=== PATIENT | female | born 1985 | race Caucasian/White ===

== ENCOUNTER 2018-11-18 22:39 | Emergency (ER) | payer OTHER, MEDICAID, SELFPAY ==
--- NOTE | 2018-11-18 22:45 | DI.RAD.S_ITS ---
PROCEDURE: XR WRIST RT MIN 3V INDICATIONS: injury, pain TECHNIQUE: 4 views of the wrist were acquired. COMPARISON: [facility], , WRIST MINIMUM 3 VIEWS RIGHT, 05/08/2010, 16:39. [facility], , WRIST INJECTION FOR MR/CT, 09/24/2010, 15:05. FINDINGS: Bones: There is a longitudinal lucency in the distal radial metaphysis, probably caused by an artifact related to a bone ridge. No suspicious bony lesions. Scaphoid view: Scaphoid appears intact. Soft tissues: No suspicious soft tissue calcifications. IMPRESSION: There is a longitudinal lucency in the distal radial metaphysis, suspicious for a nondisplaced fracture. Alternatively, this could be caused by an artifact. If clinically indicated, CT or MRI may be helpful for further evaluation. Dictated by: Cyndie Macdonald M.D. on 11/19/2018 at 8:15 Approved by: Cyndie Macdonald M.D. on 11/19/2018 at 8:22
[2018-11-18 22:46] VITALS: BP 128/72; PULSE 72; RESP 20; TEMP 36.6; O2SAT 99; BMI 30.7
--- NOTE | 2018-11-18 23:26 | ED.UPPEXIN ---
HPI - Extremity Injury (Upper) General Chief Complaint: Extremity Injury, Upper Stated Complaint: Thinks right wrist is possibly broken Time Seen by Provider: 11/18/18 22:45 Source: patient Mode of arrival: ambulatory Limitations: no limitations History of Present Illness HPI narrative: 33-year-old female nonsmoker presents with a chief complaint of gradually worsening right wrist pain over the past few days. She denies any specific injury but does state that 8 years ago she had similar symptoms. The pain is worse with motion and improves with rest. It radiates into her fingers and up to her elbow. On occasion she has some numbness and tingling in her fingers. 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 Onset (ago): week(s) Other injuries: none Handedness: right Severity: moderate Relieving factors: rest Exacerbating factors: movement of extremity Associated symptoms: denies other symptoms Related Data Home Medications Medication Instructions Recorded Confirmed VIT#96/FERROUS FUM/FA 1 tab PO Q DAY #0 06/03/12 11/06/18 ( Tablet) folic acid 1 mg PO QDAY #0 tab 08/11/16 11/06/18 cholecalciferol (vitamin D3) 2,000 2,000 unit PO DAILY 11/06/18 11/06/18 unit capsule Previous Rx's Medication Instructions Recorded fluoxetine 40 mg capsule 40 mg PO QDAY #30 cap 08/28/18 amoxicillin 500 mg capsule 500 mg PO BID #20 cap 11/06/18 benzonatate 100 mg capsule 100 mg PO TID PRN #20 cap 11/06/18 Allergies Allergy/AdvReac Type Severity Reaction Status Date / Time venom-honey bee Allergy Unknown Anaphylaxis Verified 11/06/18 08:42 [BEE VENOM (HONEY BEE)] meperidine [MEPERIDINE] AdvReac Severe HOT RED Verified 11/06/18 08:42 RASH Review of Systems Review of Systems All systems reviewed & are unremarkable except as noted in HPI and below Constitutional Denies chills, Denies fever(s), Denies lethargy and Denies weakness Eyes Denies change in vision, Denies eye discharge, Denies irritation and Denies loss of vision ENT Ears, Nose, Mouth, and Throat: Denies change in voice, Denies neck pain and Denies sore throat Cardiovascular Denies chest pain, Denies irregular heart rhythm, Denies lightheadedness, Denies palpitations, Denies dyspnea, Denies dyspnea on exertion and Denies orthopnea Respiratory Denies cough, Denies dyspnea, Denies dyspnea on exertion and Denies wheezing Gastrointestinal Gastrointestinal: Denies abdominal pain, Denies change in bowel habits, Denies diarrhea, Denies nausea and Denies vomiting Genitourinary Denies hematuria, Denies flank pain, Denies urinary incontinence and Denies urinary urgency Musculoskeletal Reports limited range of motion, Denies neck pain and Reports radiating pain into limb Integumentary/Breasts Denies pruritus, Denies erythema, Denies rash and Denies wounds Neurologic Denies confusion, Denies loss of vision and Denies weakness Psychiatric Denies anxiety, Denies confusion, Denies depression, Denies homicidal ideation and Denies suicidal ideation Endocrine Denies palpitations Hematologic/Lymphatic Denies easy bruising Allergic/Immunologic Denies wheezing PFSH Surgical History Status post delivery (06/16/12) Status post delivery (10/21/16) Status post laparoscopic cholecystectomy (04/14/07) Family History Father Age: 44 Hypertension High cholesterol Mother Age: 48 MS (multiple sclerosis) Social History Smoking Status: Never smoker Exam Narrative Exam Narrative: GEN: AOx3 and in mild distress EYES: Pupils are equal, round, and reactive to light and accommodation. Extraoccular muscles are intact bilaterally. There is no subconjunctival hemorrhage or exudate. CHEST: Lungs are clear to auscultation bilaterally and free of wheezes, rales, or rhonchi. Heart rate is regular rhythm, there are no murmurs, clicks, rubs, or gallops. There is no chest wall tenderness. ABD: Abdomen is soft and nontender. There is no guarding or rebound. Bowel sounds are normal in all 4 quadrants. There is no mass or organomegaly. EXT: Patient has full but painful range of motion at the right wrist, majority of pain at volar aspect of distal radius. Pain/tingling with Tinel's test. Too much discomfort to complete Reverse Phalen's SKIN: Warm, pink, and dry. No erythema or rash Initial Vital Signs Initial Vital Signs: Vital Signs Temperature 98 F 11/18/18 22:46 Pulse Rate 72 11/18/18 22:46 Respiratory Rate 20 11/18/18 22:46 Blood Pressure 128/72 11/18/18 22:46 Pulse Oximetry 99 11/18/18 22:46 Procedures Orthopedic Splinting/Casting Injury #1: Side: right Upper Extremity Injury Location: wrist Upper Extremity Immobilizer: volar splint Course Orders Ordered: ED Orders 11/18/18 22:45 XR wrist RT min 3V Stat Vital Signs - 8 hr 11/18/18 22:46 Temperature 98 F Pulse Rate 72 Respiratory Rate 20 Blood Pressure 128/72 Pulse Oximetry 99 Discharge Plan Departure Patient Disposition: Home Clinical Impression: Acute carpal tunnel syndrome Discharge Date/Time: 11/19/18 00:43 Interventions: ED Discharge Assessment Last Done: 11/19/18 00:43 Instructions: Carpal Tunnel Syndrome Activity Restrictions/Additional Instructions: *You have been diagnosed with [ Acute Right Carpal Tunnel ] *What to do: *Take medications as directed: Motrin / Tylenol for pain and swelling *Follow up with your primary care provider in 2-3 days, call for an appointment. Let them know you were seen in the Emergency Department and that we ask that you be seen in follow up *Return to ER if you should have any new, worsening or concerning symptoms *Wear splint for comfort Prescriptions: No Action cholecalciferol (vitamin D3) 2,000 unit capsule 2,000 unit PO DAILY RF: 0 amoxicillin 500 mg capsule 500 mg PO BID Qty: 20 RF: 0 benzonatate [Tessalon Perles] 100 mg capsule 100 mg PO TID PRN (Reason: cough) Qty: 20 RF: 0 VIT#96/FERROUS FUM/FA ( Tablet) 1 tab PO Q DAY Qty: 0 RF: 0 folic acid 1 MG tablet 1 mg PO QDAY Qty: 0 RF: 0 fluoxetine 40 mg capsule 40 mg PO QDAY Qty: 30 RF: 1 Referrals: Denton Nazario MD [Primary Care Provider] -
== END 2018-11-19 00:43 | disposition home or self-care (01) ==
PROVIDERS: Emergency Provider Emergency Medicine; Family Provider Family Medicine; PCP Family Medicine
DX: G56.00 Carpal tunnel syndrome, unspecified upper limb (principal)
CPT/HCPCS: 29260; 73110; 99282; 99283

== ENCOUNTER 2019-03-09 08:15 | Outpatient (RCR) | payer OTHER, MEDICAID, SELFPAY ==
--- NOTE | 2018-12-24 15:27 | PT.OIE ---
Current Diagnoses Pain in right wrist (12/24/18) Weakness (12/24/18) Past Surgical History (Last Reviewed 11/19/18 @ 04:37 by Frank Pedersen DO) Status post delivery (06/16/12) Status post delivery (10/21/16) Status post laparoscopic cholecystectomy (04/14/07) Provider Visit Care Team Role Provider Type Denton Nazario MD Attending Provider Physician Family Provider Primary Care Provider Specialty: Family Practice Address: [address] [place] [address], [facility] Email: [email or web address] Physical Therapy Initial Evaluation PT-OP-A Visit Information Start: 12/22/18 14:35 Freq: Status: Active Protocol: Document 12/24/18 10:34 LRN (Rec: 12/24/18 10:56 LRN [id number]) Out-Patient Physical Therapy Visit Information Visit Information Visit Type Initial Evaluation Visit Start Time 10:34 Visit Stop Time 11:30 Total Visit Minutes 56 Visit Number 1 Number of 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 After her shift was over she went to the ER to have her wrist checked for fear something was broken. She was found to have no broken bone but possible nerve damage, and was told [address] Zendejas that she could have tendinitis or carpel tunnel in the future. With time she improved until an insidious onset of R medial wrist pain started in Jul 2018. 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 Currently, she has stiffness first in AM, and every time she uses her hand she has shooting pain from R lateral thumb MCP jt to mid lateral forearm. The pt is R handed. Prior Treatments and Tests Pt reports X-ray of 10/2018 showed no broken bones. Future Testing and Treatments Planned None Treatment Goals Patient/Caregiver Goals Eliminate the pain completely. 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 Current Functional Impairments (Reported) Functional Limitations- ADL's Limited with any use of R hand Functional Limitations- Work/School Still able to work. Intermittently dull pain comes on when typing on the keyboard (mid shift). Personal Factors Other Personal Factors That May Effect 2 daughters ages 2 and 6. Therapy/Recovery Occasional headaches. History of Depression. PT-OP-C Subjective Start: 12/22/18 14:35 Freq: Status: Active Protocol: Document 12/24/18 10:34 LRN (Rec: 12/24/18 10:56 LRN [id number]) OP-PT Pain Assessment Pain Assessment Grid Paper Pain Assessment Grid Completed Yes Location R wrist Pain Location Details Sharp shooting pain. Intermittently Aches at rest 4 /10. Every AM. Intensity 8 Scale Used Numeric (1 - 10) Description Aching Sharp Frequency Occasional Pain Duration Ache Lasts .5-1 hour, Sharp is brief. Pain Aggravating Factors Changing Position Activity Other Pain Alleviating Factors Tylenol, Naproxen Home Pain Medication Use Pain Medications Used Yes PT-OP-F Manual Assessment Start: 12/22/18 14:35 Freq: Status: Active Protocol: Document 12/24/18 10:34 LRN (Rec: 12/24/18 15:06 LRN [id number]) Manual Assessments Soft Tissue Assessment Soft Tissue Mobility Assessment Swelling present in the R wrist laterally. Joint Mobility Assessment Joint Mobility Assessment Joint mobility of R carpal bones was normal. PT-OP-H Neuro Start: 12/22/18 14:35 Freq: Status: Active Protocol: Document 12/24/18 10:34 LRN (Rec: 12/24/18 15:06 LRN [id number]) Sensation Evaluation Gross Sensation Sensation Description Paresthesia Dermatome Impairments C6 T1 Comments Summary Comments Tingling was present in the R thumb and index finger with touch. PT-OP-J Posture/Palpation/Skin Start: 12/22/18 14:35 Freq: Status: Active Protocol: Document 12/24/18 10:34 LRN (Rec: 12/24/18 15:06 LRN [id number]) Palpation Assessment Location R thumb Palpation Location Abductor and extensor tendon Palpation Findings Edema Tenderness PT-OP-K Range of Motion Start: 12/22/18 14:35 Freq: Status: Active Protocol: Document 12/24/18 10:34 LRN (Rec: 12/24/18 15:06 LRN [id number]) Elbow/Forearm Range of Motion Elbow/Forearm Measured in Degrees Right Active Elbow/Forearm ROM WFL Yes ROM Testing Position Sitting Left Active Elbow/Forearm ROM WFL Yes ROM Testing Position Sitting Wrist Goniometric Range of Motion ROM Limitations Wrist Limitations of Range of Motion Pain Comments R Wrist flex is decreased. Thumb Goniometric Range of Motion Thumb Measured in Degrees Left CMC Extension Active (degrees) 50 Right CMC Extension Active (degrees) 35 Thumb ROM Limitations Thumb Range of Motion Limitations Pain Comments CMC Thumb ABD: 43 deg's right , 65 deg's left. PT-OP-L Special Tests Start: 12/22/18 14:35 Freq: Status: Active Protocol: Document 12/24/18 10:34 LRN (Rec: 12/24/18 15:06 LRN [id number]) Special Tests Wrist/Hand Special Tests Andi's Test Results Positive R Hand PT-OP-M Strength Start: 12/22/18 14:35 Freq: Status: Active Protocol: Document 12/24/18 10:34 LRN (Rec: 12/24/18 15:06 LRN [id number]) Elbow/Forearm Strength Elbow and Forearm Manual Muscle Testing Right Comments Strength - WNL Wrist Strength Wrist Manual Muscle Testing Left Reason Not Measured WFL Right Flexion (C7) 4+ Good+ Extension (C6) 4 Good Ulnar Deviation 5 Normal Radial Deviation 5 Normal Comments R wrist flexion/extension: Sharp pain present with testing. Finger/Thumb Strength Finger Manual Muscle Testing Right Thumb Extension (thumb C8) 3+ Fair+ Adduction 5 Normal Abduction (fingers T1) 5 Normal Hand Tool Maintenance Worker/Pinch Strength Hand Dominance Hand Dominance Right Hand Strength Left Tool Maintenance Worker (lbs) 21 Comments 3 Trails: 29#, 28#, 26# Right Tool Maintenance Worker (lbs) 19 Comments 3 Trials: 20#, 19#, 20# (avg is 19.7#) PT-OP-R Modalities Start: 12/22/18 14:35 Freq: Status: Active Protocol: Document 12/24/18 10:34 LRN (Rec: 12/24/18 15:06 LRN [id number]) Ultrasound Therapy Treatment Right Posterior Lateral Wrist Treatment Duration (minutes) 8 Patient Position Sitting Coupling Medium Ultrasound Gel Frequency Setting (mHz) 3 Mode Setting Pulsed Duty Cycle 50% Intensity Setting (w/cm2) 1 Comments Ultrasound to R thumb Adductor tendon. PT-OP-T Assessment and Plan Start: 12/22/18 14:35 Freq: Status: Active Protocol: Document 12/24/18 10:34 LRN (Rec: 12/24/18 15:06 LRN [id number]) Physical Therapy Assessment Rehab Potential Rehabilitation Potential Excellent Evaluation Complexity Number of Personal Factors/Comorbidities 1-2 Number of Body Systems Impaired 4 or More Clinical Presentation at Evaluation Evolving Impairments Impairments Activity Tolerance Edema Functional Activities Functional Mobility Pain ROM Sensation Soft Tissue Mobility Strength Goals Function Impairment Intermittent sharp pain at work (part-time) Punch Out Crew Member Goal (LTG) Pt will be able to work a full shift without onset of R wrist pain. 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 Shelter Goal (LTG) Pt will demonstrate circus train supervisor strength 30-33 kg's (normal for ages 35-39 year olds). LTG Duration 02/19/19 ROM Impairment Decreased R wrist mobility with +Finklestein's Test Shelter Goal (LTG) Pt will be able to demonstrate normal active R thumb and wrist mobility without pain. LTG Duration 02/05/19 Pain Impairment Pain rated 8/10 with activity use Short Term Goal (STG) Pt will show 50% improvement with pain intermittent with use. STG Duration 01/21/19 Shelter Goal (LTG) Pt will be painfree with activities at work in the R medial wrist. LTG Duration 02/19/19 Self Care Impairment Pt lacks self care HEP Shelter Goal (LTG) Pt will be independent with a self care HEP. LTG Duration 02/19/19 Assessment Summary Assessment Pt presents with R thumb abductor tendinopathy, atrophy of R forearm muscles, decreased R wrist/circus train supervisor strength, decreased R thumb/ wrist mobility and decreased functional ability. The pt would benefit from a wrist splint that could support and provide rest for her R thumb abductor's and extensor's at the CMC and MCP joints to decrease pain and inflammation of the tendons. The pt will benefit from skilled physical therapy for inflammation and pain reduction, and to improve functional mobility and strength without pain. Physical Therapy Plan Frequency and Duration Frequency of Treatment 2x/Week Duration of Treatment 2 month Plan of Care Start Date 12/24/18 Plan of Care End Date 02/12/19 Therapeutic Interventions Therapeutic Interventions Coordination Training Home Exercise Program Joint Mobilizations Manual Therapy Patient/Caregiver Education Self-Care/Home Management Soft Tissue Mobilization Taping Therapeutic Exercises Modalities Cold Pack/Ice Massage Hot Packs Infrared Therapy Iontophoresis Paraffin Bath Traction- Mechanical Ultrasound Next Visit Focus/Plan Next Note Type Treatment Note Next Visit Plan Assess neck mobility, finger coordination, thumb flex/ opposition ROM and strength. Modalities and use of K-tape to decrease inflammation and pain.
--- NOTE | 2018-12-24 15:27 | PT.OPPOC ---
Current Diagnoses Pain in right wrist (12/24/18) Weakness (12/24/18) Provider Visit Care Team Role Provider Type Denton Nazario MD Attending Provider Physician Family Provider Primary Care Provider Specialty: Family Practice Address: [address] [place] [address], [id number] Email: [email or web address] Plan Of Care PT-OP-T Assessment and Plan Start: 12/22/18 14:35 Freq: Status: Active Protocol: Document 12/24/18 10:34 LRN (Rec: 12/24/18 15:06 LRN [id number]) Physical Therapy Assessment Rehab Potential Rehabilitation Potential Excellent Evaluation Complexity Number of Personal Factors/Comorbidities 1-2 Number of Body Systems Impaired 4 or More Clinical Presentation at Evaluation Evolving Impairments Impairments Activity Tolerance Edema Functional Activities Functional Mobility Pain ROM Sensation Soft Tissue Mobility Strength Goals Function Impairment Intermittent sharp pain at work (part-time) Group Home Goal (LTG) Pt will be able to work a full shift without onset of R wrist pain. 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 Group Home Goal (LTG) Pt will demonstrate felt hat mellowing machine operator strength 30-33 kg's (normal for ages 35-39 year olds). LTG Duration 02/19/19 ROM Impairment Decreased R wrist mobility with +Finklestein's Test Group Home Goal (LTG) Pt will be able to demonstrate normal active R thumb and wrist mobility without pain. LTG Duration 02/05/19 Pain Impairment Pain rated 8/10 with activity use Short Term Goal (STG) Pt will show 50% improvement with pain intermittent with use. STG Duration 01/21/19 Group Home Goal (LTG) Pt will be painfree with activities at work in the R medial wrist. LTG Duration 02/19/19 Self Care Impairment Pt lacks self care HEP Group Home Goal (LTG) Pt will be independent with a self care HEP. 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 The pt would benefit from a wrist splint that could support and provide rest for her R thumb abductor's and extensor's at the CMC and MCP joints to decrease pain and inflammation of the tendons. The pt will benefit from skilled physical therapy for inflammation and pain reduction, and to improve functional mobility and strength without pain. Physical Therapy Plan Frequency and Duration Frequency of Treatment 2x/Week Duration of Treatment 2 month Plan of Care Start Date 12/24/18 Plan of Care End Date 02/12/19 Therapeutic Interventions Therapeutic Interventions Coordination Training Home Exercise Program Joint Mobilizations Manual Therapy Patient/Caregiver Education Self-Care/Home Management Soft Tissue Mobilization Taping Therapeutic Exercises Modalities Cold Pack/Ice Massage Hot Packs Infrared Therapy Iontophoresis Paraffin Bath Traction- Mechanical Ultrasound Next Visit Focus/Plan Next Note Type Treatment Note Next Visit Plan Assess neck mobility, finger coordination, thumb flex/ opposition ROM and strength. Modalities and use of K-tape to decrease inflammation and pain. Plan of Care Dates Plan of Care Start Date 12/24/18 Plan of Care End Date 02/12/19 Please Sign and Return: I have reviewed this Plan of Care and certify that the skilled therapy services above are required to meet the patient?s needs. Physician Signature Date Printed Name and Credentials Clinical Instructor Signature Printed Name and Credentials
--- NOTE | 2018-12-29 13:59 | PT.OTN ---
Current Diagnoses Pain in right wrist (12/29/18) Physical Therapy Treatment Note PT-OP-A Visit Information Start: 12/22/18 14:35 Freq: Status: Active Protocol: Document 12/29/18 09:45 GGD (Rec: 12/29/18 13:59 GGD [email or web address]) Out-Patient Physical Therapy Visit Information Visit Information Visit Type Treatment Note Visit Start Time 09:45 Visit Stop Time 10:25 Total Visit Minutes 40 Visit Number 2 Number of FLOW FLOOR ATTENDANT Visits 1 Evaluation Information Evaluation Date 12/24/18 PT-OP-B Current Condition Start: 12/22/18 14:35 Freq: Status: Active Protocol: Document 12/24/18 10:34 LRN (Rec: 12/24/18 10:56 LRN [id number]) Current Condition History of Current Condition Onset Date 04/2010 Current Complaints Pain in the R wrist present with activity History of Current Condition In April of 2010, while at work at [facility], a nurse and her were getting a pt out of bed and was trying to lift a tubing alongside the bed when her R hand came up, hitting her wrist on the bed rail. After her shift was over she went to the ER to have her wrist checked for fear something was broken. She was found to have no broken bone but possible nerve damage, and was told [address] Zendejas that she could have tendinitis or carpel tunnel in the future. With time she improved until an insidious onset of R medial wrist pain started in Jul 2018. 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. Currently, she has stiffness first in AM, and every time she uses her hand she has shooting pain from R lateral thumb MCP jt to mid lateral forearm. The pt is R handed. Prior Treatments and Tests Pt reports X-ray of 10/2018 showed no broken bones. Future Testing and Treatments Planned None Treatment Goals Patient/Caregiver Goals Eliminate the pain completely. 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 Current Functional Impairments (Reported) Functional Limitations- ADL's Limited with any use of R hand Functional Limitations- Work/School Still able to work. Intermittently dull pain comes on when typing on the keyboard (mid shift). Personal Factors Other Personal Factors That May Effect 2 daughters ages 2 and 6. Therapy/Recovery Occasional headaches. History of Depression. PT-OP-C Subjective Start: 12/22/18 14:35 Freq: Status: Active Protocol: Document 12/29/18 09:45 GGD (Rec: 12/29/18 13:59 GGD [email or web address]) OP-PT Subjective Patient Comments Patient Comments Pt states that she had increase in pain, feels it's due to the cold weather. She has a brace she been wearing. PT-OP-F Manual Assessment Start: 12/22/18 14:35 Freq: Status: Active Protocol: Document 12/24/18 10:34 LRN (Rec: 12/24/18 15:06 LRN [id number]) Manual Assessments Soft Tissue Assessment Soft Tissue Mobility Assessment Swelling present in the R wrist laterally. Joint Mobility Assessment Joint Mobility Assessment Joint mobility of R carpal bones was normal. PT-OP-H Neuro Start: 12/22/18 14:35 Freq: Status: Active Protocol: Document 12/24/18 10:34 LRN (Rec: 12/24/18 15:06 LRN [id number]) Sensation Evaluation Gross Sensation Sensation Description Paresthesia Dermatome Impairments C6 T1 Comments Summary Comments Tingling was present in the R thumb and index finger with touch. PT-OP-J Posture/Palpation/Skin Start: 12/22/18 14:35 Freq: Status: Active Protocol: Document 12/24/18 10:34 LRN (Rec: 12/24/18 15:06 LRN [id number]) Palpation Assessment Location R thumb Palpation Location Abductor and extensor tendon Palpation Findings Edema Tenderness PT-OP-K Range of Motion Start: 12/22/18 14:35 Freq: Status: Active Protocol: Document 12/24/18 10:34 LRN (Rec: 12/24/18 15:06 LRN [id number]) Elbow/Forearm Range of Motion Elbow/Forearm Measured in Degrees Right Active Elbow/Forearm ROM WFL Yes ROM Testing Position Sitting Left Active Elbow/Forearm ROM WFL Yes ROM Testing Position Sitting Wrist Goniometric Range of Motion ROM Limitations Wrist Limitations of Range of Motion Pain Comments R Wrist flex is decreased. Thumb Goniometric Range of Motion Thumb Measured in Degrees Left CMC Extension Active (degrees) 50 Right CMC Extension Active (degrees) 35 Thumb ROM Limitations Thumb Range of Motion Limitations Pain Comments CMC Thumb ABD: 43 deg's right , 65 deg's left. PT-OP-L Special Tests Start: 12/22/18 14:35 Freq: Status: Active Protocol: Document 12/24/18 10:34 LRN (Rec: 12/24/18 15:06 LRN [id number]) Special Tests Wrist/Hand Special Tests Andi's Test Results Positive R Hand PT-OP-M Strength Start: 12/22/18 14:35 Freq: Status: Active Protocol: Document 12/24/18 10:34 LRN (Rec: 12/24/18 15:06 LRN [id number]) Elbow/Forearm Strength Elbow and Forearm Manual Muscle Testing Right Comments Strength - WNL Wrist Strength Wrist Manual Muscle Testing Left Reason Not Measured WFL Right Flexion (C7) 4+ Good+ Extension (C6) 4 Good Ulnar Deviation 5 Normal Radial Deviation 5 Normal Comments R wrist flexion/extension: Sharp pain present with testing. Finger/Thumb Strength Finger Manual Muscle Testing Right Thumb Extension (thumb C8) 3+ Fair+ Adduction 5 Normal Abduction (fingers T1) 5 Normal Hand Blasting Coal Miner/Pinch Strength Hand Dominance Hand Dominance Right Hand Strength Left Blasting Coal Miner (lbs) 21 Comments 3 Trails: 29#, 28#, 26# Right Blasting Coal Miner (lbs) 19 Comments 3 Trials: 20#, 19#, 20# (avg is 19.7#) PT-OP-Q Treatments Start: 12/22/18 14:35 Freq: Status: Active Protocol: Document 12/29/18 09:45 GGD (Rec: 12/29/18 13:59 GGD [email or web address]) Therapeutic Exercises Sitting Exercises 4 Sitting Exercise Name rows Side bilateral Resistance 2 Equipment Used thera band Reps/Minutes 20 3 Sitting Exercise Name Shoulder abduction and flexion Side right Resistance 3 Reps/Minutes 20 2 Sitting Exercise Name biceps curls Side right Resistance 3# Reps/Minutes 20 1 Sitting Exercise Name wrist flexor and extensor stretch Reps/Minutes 2 PT-OP-R Modalities Start: 12/22/18 14:35 Freq: Status: Active Protocol: Document 12/29/18 09:45 GGD (Rec: 12/29/18 13:59 GGD [email or web address]) Hot Pack/Cold Pack Treatment Ice Massage Location right thumb abductor Patient Position Sitting Treatment Duration (minutes) 5 Patient Tolerance Good Ultrasound Therapy Treatment Right Posterior Lateral Wrist Treatment Duration (minutes) 8 Patient Position Sitting Coupling Medium Ultrasound Gel Frequency Setting (mHz) 3 Mode Setting Pulsed Duty Cycle 50% Intensity Setting (w/cm2) 1 Comments Ultrasound to R thumb Abductor tendon. PT-OP-T Assessment and Plan Start: 12/22/18 14:35 Freq: Status: Active Protocol: Document 12/29/18 09:45 GGD (Rec: 12/29/18 13:59 GGD [email or web address]) Physical Therapy Assessment Assessment Summary Assessment Pt had decreas in pain with treatment. She had increase in pain with wrist active motions. She had good tolerance to exercise and director external communications of weight. Physical Therapy Plan Frequency and Duration Frequency of Treatment 2x/Week Duration of Treatment 2 month Plan of Care Start Date 12/24/18 Plan of Care End Date 02/12/19 Therapeutic Interventions Therapeutic Interventions Coordination Training Home Exercise Program Joint Mobilizations Manual Therapy Patient/Caregiver Education Self-Care/Home Management Soft Tissue Mobilization Taping Therapeutic Exercises Modalities Cold Pack/Ice Massage Hot Packs Infrared Therapy Iontophoresis Paraffin Bath Traction- Mechanical Ultrasound Next Visit Focus/Plan Next Note Type Treatment Note Next Visit Plan Assess neck mobility, finger coordination, thumb flex/ opposition ROM and strength. Modalities to decrease inflammation and pain.
--- NOTE | 2018-12-31 16:20 | PT.OTN ---
Current Diagnoses Pain in right wrist (12/31/18) Physical Therapy Treatment Note PT-OP-A Visit Information Start: 12/22/18 14:35 Freq: Status: Active Protocol: Document 12/31/18 09:00 AMB (Rec: 12/31/18 16:20 AMB [email or web address]) Out-Patient Physical Therapy Visit Information Visit Information Visit Type Treatment Note Visit Start Time 09:00 Visit Stop Time 09:45 Total Visit Minutes 40 Visit Number 3 Number of FOUNDER AND PRESIDENT Visits 0 PT-OP-B Current Condition Start: 12/22/18 14:35 Freq: Status: Active Protocol: Document 12/24/18 10:34 LRN (Rec: 12/24/18 10:56 LRN [id number]) Current Condition History of Current Condition Onset Date 04/2010 Current Complaints Pain in the R wrist present with activity History of Current Condition In April of 2010, while at work at [facility], a nurse and her were getting a pt out of bed and was trying to lift a tubing alongside the bed when her R hand came up, hitting her wrist on the bed rail. After her shift was over she went to the ER to have her wrist checked for fear something was broken. She was found to have no broken bone but possible nerve damage, and was told [address] Zendejas that she could have tendinitis or carpel tunnel in the future. With time she improved until an insidious onset of R medial wrist pain started in Jul 2018. 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 Currently, she has stiffness first in AM, and every time she uses her hand she has shooting pain from R lateral thumb MCP jt to mid lateral forearm. The pt is R handed. Prior Treatments and Tests Pt reports X-ray of 10/2018 showed no broken bones. Future Testing and Treatments Planned None Treatment Goals Patient/Caregiver Goals Eliminate the pain completely. 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 Current Functional Impairments (Reported) Functional Limitations- ADL's Limited with any use of R hand Functional Limitations- Work/School Still able to work. Intermittently dull pain comes on when typing on the keyboard (mid shift). Personal Factors Other Personal Factors That May Effect 2 daughters ages 2 and 6. Therapy/Recovery Occasional headaches. History of Depression. PT-OP-C Subjective Start: 12/22/18 14:35 Freq: Status: Active Protocol: Document 12/31/18 09:00 AMB (Rec: 12/31/18 16:20 AMB [email or web address]) OP-PT Subjective Patient Comments Patient Comments Pt feels brace is irritating, but she has been wearing it, better than the brace from the ER. [place] better after last session, is trying to be aware of lifting mechanics with her daughter. PT-OP-F Manual Assessment Start: 12/22/18 14:35 Freq: Status: Active Protocol: Document 12/24/18 10:34 LRN (Rec: 12/24/18 15:06 LRN [id number]) Manual Assessments Soft Tissue Assessment Soft Tissue Mobility Assessment Swelling present in the R wrist laterally. Joint Mobility Assessment Joint Mobility Assessment Joint mobility of R carpal bones was normal. PT-OP-H Neuro Start: 12/22/18 14:35 Freq: Status: Active Protocol: Document 12/24/18 10:34 LRN (Rec: 12/24/18 15:06 LRN [id number]) Sensation Evaluation Gross Sensation Sensation Description Paresthesia Dermatome Impairments C6 T1 Comments Summary Comments Tingling was present in the R thumb and index finger with touch. PT-OP-J Posture/Palpation/Skin Start: 12/22/18 14:35 Freq: Status: Active Protocol: Document 12/24/18 10:34 LRN (Rec: 12/24/18 15:06 LRN [id number]) Palpation Assessment Location R thumb Palpation Location Abductor and extensor tendon Palpation Findings Edema Tenderness PT-OP-K Range of Motion Start: 12/22/18 14:35 Freq: Status: Active Protocol: Document 12/24/18 10:34 LRN (Rec: 12/24/18 15:06 LRN [id number]) Elbow/Forearm Range of Motion Elbow/Forearm Measured in Degrees Right Active Elbow/Forearm ROM WFL Yes ROM Testing Position Sitting Left Active Elbow/Forearm ROM WFL Yes ROM Testing Position Sitting Wrist Goniometric Range of Motion ROM Limitations Wrist Limitations of Range of Motion Pain Comments R Wrist flex is decreased. Thumb Goniometric Range of Motion Thumb Measured in Degrees Left CMC Extension Active (degrees) 50 Right CMC Extension Active (degrees) 35 Thumb ROM Limitations Thumb Range of Motion Limitations Pain Comments CMC Thumb ABD: 43 deg's right , 65 deg's left. PT-OP-L Special Tests Start: 12/22/18 14:35 Freq: Status: Active Protocol: Document 12/24/18 10:34 LRN (Rec: 12/24/18 15:06 LRN [id number]) Special Tests Wrist/Hand Special Tests Andi's Test Results Positive R Hand PT-OP-M Strength Start: 12/22/18 14:35 Freq: Status: Active Protocol: Document 12/24/18 10:34 LRN (Rec: 12/24/18 15:06 LRN [id number]) Elbow/Forearm Strength Elbow and Forearm Manual Muscle Testing Right Comments Strength - WNL Wrist Strength Wrist Manual Muscle Testing Left Reason Not Measured WFL Right Flexion (C7) 4+ Good+ Extension (C6) 4 Good Ulnar Deviation 5 Normal Radial Deviation 5 Normal Comments R wrist flexion/extension: Sharp pain present with testing. Finger/Thumb Strength Finger Manual Muscle Testing Right Thumb Extension (thumb C8) 3+ Fair+ Adduction 5 Normal Abduction (fingers T1) 5 Normal Hand Customer Retention Specialist/Pinch Strength Hand Dominance Hand Dominance Right Hand Strength Left Customer Retention Specialist (lbs) 21 Comments 3 Trails: 29#, 28#, 26# Right Customer Retention Specialist (lbs) 19 Comments 3 Trials: 20#, 19#, 20# (avg is 19.7#) PT-OP-Q Treatments Start: 12/22/18 14:35 Freq: Status: Active Protocol: Document 12/31/18 09:00 AMB (Rec: 12/31/18 16:20 AMB [email or web address]) Therapeutic Exercises Sitting Exercises 5 Sitting Exercise Name supination/pronation Resistance 1# Reps/Minutes 10 4 Sitting Exercise Name rows Side bilateral Resistance 2 Equipment Used thera band Reps/Minutes 20 2 Sitting Exercise Name biceps curls Side right Resistance 3# Reps/Minutes 20 1 Sitting Exercise Name wrist flexor and extensor stretch Reps/Minutes 2 Manual Therapy Treatment Soft Tissue Mobilization 1 Body Location R thumb abductor tendon Mobilization Type Cross-Friction PT-OP-R Modalities Start: 12/22/18 14:35 Freq: Status: Active Protocol: Document 12/31/18 09:00 AMB (Rec: 12/31/18 16:20 AMB [email or web address]) Hot Pack/Cold Pack Treatment Ice Massage Location right thumb abductor Patient Position Sitting Treatment Duration (minutes) 5 Patient Tolerance Good Ultrasound Therapy Treatment Right Posterior Lateral Wrist Treatment Duration (minutes) 8 Patient Position Sitting Coupling Medium Ultrasound Gel Frequency Setting (mHz) 3 Mode Setting Pulsed Duty Cycle 50% Intensity Setting (w/cm2) 1 Comments Ultrasound to R thumb Abductor tendon. PT-OP-T Assessment and Plan Start: 12/22/18 14:35 Freq: Status: Active Protocol: Document 12/31/18 09:00 AMB (Rec: 12/31/18 16:20 AMB [email or web address]) Physical Therapy Assessment Assessment Summary Assessment Pt given theraband for home with education to keep wrist in neutral. Physical Therapy Plan Next Visit Focus/Plan Next Note Type Treatment Note Next Visit Plan Assess neck mobility, finger coordination, thumb flex/ opposition ROM and strength. Modalities to decrease inflammation and pain.
--- NOTE | 2019-01-07 10:30 | PT.OTN ---
Current Diagnoses Pain in right wrist (01/07/19) Physical Therapy Treatment Note PT-OP-A Visit Information Start: 12/22/18 14:35 Freq: Status: Active Protocol: Document 01/07/19 10:23 EA (Rec: 01/07/19 10:29 EA [id number]) Out-Patient Physical Therapy Visit Information Visit Information Visit Type Treatment Note Visit Start Time 09:45 Visit Stop Time 10:30 Total Visit Minutes 45 Visit Number 4 Number of DESKTOP PUBLISHING OPERATOR Visits 0 PT-OP-B Current Condition Start: 12/22/18 14:35 Freq: Status: Active Protocol: Document 12/24/18 10:34 LRN (Rec: 12/24/18 10:56 LRN [id number]) Current Condition History of Current Condition Onset Date 04/2010 Current Complaints Pain in the R wrist present with activity History of Current Condition In April of 2010, while at work at [facility], a nurse and her were getting a pt out of bed and was trying to lift a tubing alongside the bed when her R hand came up, hitting her wrist on the bed rail. After her shift was over she went to the ER to have her wrist checked for fear something was broken. She was found to have no broken bone but possible nerve damage, and was told [address] Zendejas that she could have tendinitis or carpel tunnel in the future. With time she improved until an insidious onset of R medial wrist pain started in Jul 2018. 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. Currently, she has stiffness first in AM, and every time she uses her hand she has shooting pain from R lateral thumb MCP jt to mid lateral forearm. The pt is R handed. Prior Treatments and Tests Pt reports X-ray of 10/2018 showed no broken bones. Future Testing and Treatments Planned None Treatment Goals Patient/Caregiver Goals Eliminate the pain completely. 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 Current Functional Impairments (Reported) Functional Limitations- ADL's Limited with any use of R hand Functional Limitations- Work/School Still able to work. Intermittently dull pain comes on when typing on the keyboard (mid shift). Personal Factors Other Personal Factors That May Effect 2 daughters ages 2 and 6. Therapy/Recovery Occasional headaches. History of Depression. PT-OP-C Subjective Start: 12/22/18 14:35 Freq: Status: Active Protocol: Document 01/07/19 10:23 EA (Rec: 01/07/19 10:29 EA [id number]) OP-PT Subjective Patient Comments Patient Comments No new complaint at this time. PT-OP-F Manual Assessment Start: 12/22/18 14:35 Freq: Status: Active Protocol: Document 12/24/18 10:34 LRN (Rec: 12/24/18 15:06 LRN [id number]) Manual Assessments Soft Tissue Assessment Soft Tissue Mobility Assessment Swelling present in the R wrist laterally. Joint Mobility Assessment Joint Mobility Assessment Joint mobility of R carpal bones was normal. PT-OP-H Neuro Start: 12/22/18 14:35 Freq: Status: Active Protocol: Document 12/24/18 10:34 LRN (Rec: 12/24/18 15:06 LRN [id number]) Sensation Evaluation Gross Sensation Sensation Description Paresthesia Dermatome Impairments C6 T1 Comments Summary Comments Tingling was present in the R thumb and index finger with touch. PT-OP-J Posture/Palpation/Skin Start: 12/22/18 14:35 Freq: Status: Active Protocol: Document 12/24/18 10:34 LRN (Rec: 12/24/18 15:06 LRN [id number]) Palpation Assessment Location R thumb Palpation Location Abductor and extensor tendon Palpation Findings Edema Tenderness PT-OP-K Range of Motion Start: 12/22/18 14:35 Freq: Status: Active Protocol: Document 12/24/18 10:34 LRN (Rec: 12/24/18 15:06 LRN [id number]) Elbow/Forearm Range of Motion Elbow/Forearm Measured in Degrees Right Active Elbow/Forearm ROM WFL Yes ROM Testing Position Sitting Left Active Elbow/Forearm ROM WFL Yes ROM Testing Position Sitting Wrist Goniometric Range of Motion ROM Limitations Wrist Limitations of Range of Motion Pain Comments R Wrist flex is decreased. Thumb Goniometric Range of Motion Thumb Measured in Degrees Left CMC Extension Active (degrees) 50 Right CMC Extension Active (degrees) 35 Thumb ROM Limitations Thumb Range of Motion Limitations Pain Comments CMC Thumb ABD: 43 deg's right , 65 deg's left. PT-OP-L Special Tests Start: 12/22/18 14:35 Freq: Status: Active Protocol: Document 12/24/18 10:34 LRN (Rec: 12/24/18 15:06 LRN [id number]) Special Tests Wrist/Hand Special Tests Andi's Test Results Positive R Hand PT-OP-M Strength Start: 12/22/18 14:35 Freq: Status: Active Protocol: Document 12/24/18 10:34 LRN (Rec: 12/24/18 15:06 LRN [id number]) Elbow/Forearm Strength Elbow and Forearm Manual Muscle Testing Right Comments Strength - WNL Wrist Strength Wrist Manual Muscle Testing Left Reason Not Measured WFL Right Flexion (C7) 4+ Good+ Extension (C6) 4 Good Ulnar Deviation 5 Normal Radial Deviation 5 Normal Comments R wrist flexion/extension: Sharp pain present with testing. Finger/Thumb Strength Finger Manual Muscle Testing Right Thumb Extension (thumb C8) 3+ Fair+ Adduction 5 Normal Abduction (fingers T1) 5 Normal Hand Search Marketing Analyst/Pinch Strength Hand Dominance Hand Dominance Right Hand Strength Left Search Marketing Analyst (lbs) 21 Comments 3 Trails: 29#, 28#, 26# Right Search Marketing Analyst (lbs) 19 Comments 3 Trials: 20#, 19#, 20# (avg is 19.7#) PT-OP-Q Treatments Start: 12/22/18 14:35 Freq: Status: Active Protocol: Document 01/07/19 10:23 EA (Rec: 01/07/19 10:29 EA [id number]) Therapeutic Exercises Sitting Exercises 6 Sitting Exercise Name soft paraffin wax: thumb flexion/extension (DIP/PIP) Reps/Minutes x 10 reps 5 Sitting Exercise Name supination/pronation Resistance 1# Reps/Minutes 10 2 Sitting Exercise Name Wrist deviations Side right Resistance 1-2 # Reps/Minutes x 15 reps x 2 1 Sitting Exercise Name wrist flexor and extensor stretch Resistance 1-2# Reps/Minutes 15 res x 2 Manual Therapy Treatment Soft Tissue Mobilization 1 Body Location R thumb abductor tendon Mobilization Type Cross-Friction PT-OP-R Modalities Start: 12/22/18 14:35 Freq: Status: Active Protocol: Document 01/07/19 10:23 EA (Rec: 01/07/19 10:29 EA [id number]) Paraffin Bath Treatment Right Hand Treatment Technique Dip-immersion Duration (minutes) 6 Ultrasound Therapy Treatment Right Posterior Lateral Wrist Treatment Duration (minutes) 5 Patient Position Sitting Coupling Medium Ultrasound Gel Frequency Setting (mHz) 3 Mode Setting Pulsed Duty Cycle 50% Intensity Setting (w/cm2) 1 Comments Ultrasound to R thumb Abductor tendon. PT-OP-T Assessment and Plan Start: 12/22/18 14:35 Freq: Status: Active Protocol: Document 01/07/19 10:23 EA (Rec: 01/07/19 10:29 EA [id number]) Physical Therapy Assessment Assessment Summary Assessment Pt feels better after manual and modalities; tolerated treatment with mild difficulty with thum exercises. Physical Therapy Plan Next Visit Focus/Plan Next Note Type Treatment Note Next Visit Plan Cont. current treatment.
--- NOTE | 2019-01-14 17:12 | PT.OTN ---
Current Diagnoses Pain in right wrist (01/14/19) Physical Therapy Treatment Note PT-OP-A Visit Information Start: 12/22/18 14:35 Freq: Status: Active Protocol: Document 01/14/19 17:02 AMH (Rec: 01/14/19 17:12 AMH [email or web address]) Out-Patient Physical Therapy Visit Information Visit Information Visit Type Treatment Note Visit Start Time 09:00 Visit Stop Time 09:45 Total Visit Minutes 45 Visit Number 5 Number of AGRICULTURAL LABOR CAMP MANAGER Visits 0 Evaluation Information Evaluation Date 12/24/18 PT-OP-B Current Condition Start: 12/22/18 14:35 Freq: Status: Active Protocol: Document 12/24/18 10:34 LRN (Rec: 12/24/18 10:56 LRN [id number]) Current Condition History of Current Condition Onset Date 04/2010 Current Complaints Pain in the R wrist present with activity History of Current Condition In April of 2010, while at work at [facility], a nurse and her were getting a pt out of bed and was trying to lift a tubing alongside the bed when her R hand came up, hitting her wrist on the bed rail. After her shift was over she went to the ER to have her wrist checked for fear something was broken. She was found to have no broken bone but possible nerve damage, and was told [address] Zendejas that she could have tendinitis or carpel tunnel in the future. With time she improved until an insidious onset of R medial wrist pain started in Jul 2018. 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 Currently, she has stiffness first in AM, and every time she uses her hand she has shooting pain from R lateral thumb MCP jt to mid lateral forearm. The pt is R handed. Prior Treatments and Tests Pt reports X-ray of 10/2018 showed no broken bones. Future Testing and Treatments Planned None Treatment Goals Patient/Caregiver Goals Eliminate the pain completely. 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 Current Functional Impairments (Reported) Functional Limitations- ADL's Limited with any use of R hand Functional Limitations- Work/School Still able to work. Intermittently dull pain comes on when typing on the keyboard (mid shift). Personal Factors Other Personal Factors That May Effect 2 daughters ages 2 and 6. Therapy/Recovery Occasional headaches. History of Depression. PT-OP-C Subjective Start: 12/22/18 14:35 Freq: Status: Active Protocol: Document 01/14/19 17:02 AMH (Rec: 01/14/19 17:12 AMH [email or web address]) OP-PT Subjective Patient Comments Patient Comments Paige reports she has been trying to wear her brace and this helps. She also notes heat helps her wrist PT-OP-F Manual Assessment Start: 12/22/18 14:35 Freq: Status: Active Protocol: Document 12/24/18 10:34 LRN (Rec: 12/24/18 15:06 LRN [id number]) Manual Assessments Soft Tissue Assessment Soft Tissue Mobility Assessment Swelling present in the R wrist laterally. Joint Mobility Assessment Joint Mobility Assessment Joint mobility of R carpal bones was normal. PT-OP-H Neuro Start: 12/22/18 14:35 Freq: Status: Active Protocol: Document 12/24/18 10:34 LRN (Rec: 12/24/18 15:06 LRN [id number]) Sensation Evaluation Gross Sensation Sensation Description Paresthesia Dermatome Impairments C6 T1 Comments Summary Comments Tingling was present in the R thumb and index finger with touch. PT-OP-J Posture/Palpation/Skin Start: 12/22/18 14:35 Freq: Status: Active Protocol: Document 12/24/18 10:34 LRN (Rec: 12/24/18 15:06 LRN [id number]) Palpation Assessment Location R thumb Palpation Location Abductor and extensor tendon Palpation Findings Edema Tenderness PT-OP-K Range of Motion Start: 12/22/18 14:35 Freq: Status: Active Protocol: Document 12/24/18 10:34 LRN (Rec: 12/24/18 15:06 LRN [id number]) Elbow/Forearm Range of Motion Elbow/Forearm Measured in Degrees Right Active Elbow/Forearm ROM WFL Yes ROM Testing Position Sitting Left Active Elbow/Forearm ROM WFL Yes ROM Testing Position Sitting Wrist Goniometric Range of Motion ROM Limitations Wrist Limitations of Range of Motion Pain Comments R Wrist flex is decreased. Thumb Goniometric Range of Motion Thumb Measured in Degrees Left CMC Extension Active (degrees) 50 Right CMC Extension Active (degrees) 35 Thumb ROM Limitations Thumb Range of Motion Limitations Pain Comments CMC Thumb ABD: 43 deg's right , 65 deg's left. PT-OP-L Special Tests Start: 12/22/18 14:35 Freq: Status: Active Protocol: Document 12/24/18 10:34 LRN (Rec: 12/24/18 15:06 LRN [id number]) Special Tests Wrist/Hand Special Tests Andi's Test Results Positive R Hand PT-OP-M Strength Start: 12/22/18 14:35 Freq: Status: Active Protocol: Document 12/24/18 10:34 LRN (Rec: 12/24/18 15:06 LRN [id number]) Elbow/Forearm Strength Elbow and Forearm Manual Muscle Testing Right Comments Strength - WNL Wrist Strength Wrist Manual Muscle Testing Left Reason Not Measured WFL Right Flexion (C7) 4+ Good+ Extension (C6) 4 Good Ulnar Deviation 5 Normal Radial Deviation 5 Normal Comments R wrist flexion/extension: Sharp pain present with testing. Finger/Thumb Strength Finger Manual Muscle Testing Right Thumb Extension (thumb C8) 3+ Fair+ Adduction 5 Normal Abduction (fingers T1) 5 Normal Hand Multisensor Intelligence Officer/Pinch Strength Hand Dominance Hand Dominance Right Hand Strength Left Multisensor Intelligence Officer (lbs) 21 Comments 3 Trails: 29#, 28#, 26# Right Multisensor Intelligence Officer (lbs) 19 Comments 3 Trials: 20#, 19#, 20# (avg is 19.7#) PT-OP-Q Treatments Start: 12/22/18 14:35 Freq: Status: Active Protocol: Document 01/14/19 17:02 AMH (Rec: 01/14/19 17:12 AMH [email or web address]) Therapeutic Exercises Sitting Exercises 7 Sitting Exercise Name tendon gliding for de Quervains tendonitis Reps/Minutes x 10 reps Comments end with 30 second stretch 6 Sitting Exercise Name soft paraffin wax: thumb flexion/extension (DIP/PIP) Reps/Minutes x 10 reps Manual Therapy Treatment Soft Tissue Mobilization 2 Body Location manual STM and MFR of the forearm on the radial side of the wrist Comments manual stretching of the thumb adductor tendon and manual tendon glides 1 Body Location R thumb abductor tendon Mobilization Type Cross-Friction PT-OP-R Modalities Start: 12/22/18 14:35 Freq: Status: Active Protocol: Document 01/14/19 17:02 AMH (Rec: 01/14/19 17:12 AMH [email or web address]) Paraffin Bath Treatment Right Hand Treatment Technique Dip-immersion Duration (minutes) 6 Ultrasound Therapy Treatment Right Posterior Lateral Wrist Treatment Duration (minutes) 8 Patient Position Sitting Coupling Medium Ultrasound Gel Frequency Setting (mHz) 3 Mode Setting Pulsed Duty Cycle 50% Intensity Setting (w/cm2) 1 Comments Ultrasound to R thumb Abductor tendon. PT-OP-T Assessment and Plan Start: 12/22/18 14:35 Freq: Status: Active Protocol: Document 01/14/19 17:02 [facility] (Rec: 01/14/19 17:12 AMH [email or web address]) Physical Therapy Assessment Assessment Summary Assessment pt likes heat and manual stretches, she was shown tendon glides for de Quervains tendonitis Physical Therapy Plan Frequency and Duration Frequency of Treatment 2x/Week Duration of Treatment 2 month Plan of Care Start Date 12/24/18 Plan of Care End Date 02/12/19 Therapeutic Interventions Therapeutic Interventions Coordination Training Home Exercise Program Joint Mobilizations Manual Therapy Patient/Caregiver Education Self-Care/Home Management Soft Tissue Mobilization Taping Therapeutic Exercises Modalities Cold Pack/Ice Massage Hot Packs Infrared Therapy Iontophoresis Paraffin Bath Traction- Mechanical Ultrasound Next Visit Focus/Plan Next Note Type Treatment Note Next Visit Plan continue working on stretching and tendon gliding, assess right pec minor length and scalenes next visit, posskartik trial of radial nerve glides
--- NOTE | 2019-01-19 11:26 | PT.OTN ---
Current Diagnoses Pain in right wrist (01/19/19) Physical Therapy Treatment Note PT-OP-A Visit Information Start: 12/22/18 14:35 Freq: Status: Active Protocol: Document 01/19/19 09:45 GGD (Rec: 01/19/19 11:26 GGD [email or web address]) Out-Patient Physical Therapy Visit Information Visit Information Visit Type Treatment Note Visit Start Time 09:45 Visit Stop Time 10:30 Total Visit Minutes 45 Visit Number 6 Number of ORDER CALLER Visits 1 Evaluation Information Evaluation Date 12/24/18 PT-OP-B Current Condition Start: 12/22/18 14:35 Freq: Status: Active Protocol: Document 12/24/18 10:34 LRN (Rec: 12/24/18 10:56 LRN [id number]) Current Condition History of Current Condition Onset Date 04/2010 Current Complaints Pain in the R wrist present with activity History of Current Condition In April of 2010, while at work at [facility], a nurse and her were getting a pt out of bed and was trying to lift a tubing alongside the bed when her R hand came up, hitting her wrist on the bed rail. After her shift was over she went to the ER to have her wrist checked for fear something was broken. She was found to have no broken bone but possible nerve damage, and was told [address] Zendejas that she could have tendinitis or carpel tunnel in the future. With time she improved until an insidious onset of R medial wrist pain started in Jul 2018. 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 Currently, she has stiffness first in AM, and every time she uses her hand she has shooting pain from R lateral thumb MCP jt to mid lateral forearm. The pt is R handed. Prior Treatments and Tests Pt reports X-ray of 10/2018 showed no broken bones. Future Testing and Treatments Planned None Treatment Goals Patient/Caregiver Goals Eliminate the pain completely. 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 Current Functional Impairments (Reported) Functional Limitations- ADL's Limited with any use of R hand Functional Limitations- Work/School Still able to work. Intermittently dull pain comes on when typing on the keyboard (mid shift). Personal Factors Other Personal Factors That May Effect 2 daughters ages 2 and 6. Therapy/Recovery Occasional headaches. History of Depression. PT-OP-C Subjective Start: 12/22/18 14:35 Freq: Status: Active Protocol: Document 01/19/19 09:45 GGD (Rec: 01/19/19 11:26 GGD [email or web address]) OP-PT Subjective Patient Comments Patient Comments Pt reports that the heat was helpful last visit. PT-OP-F Manual Assessment Start: 12/22/18 14:35 Freq: Status: Active Protocol: Document 12/24/18 10:34 LRN (Rec: 12/24/18 15:06 LRN [id number]) Manual Assessments Soft Tissue Assessment Soft Tissue Mobility Assessment Swelling present in the R wrist laterally. Joint Mobility Assessment Joint Mobility Assessment Joint mobility of R carpal bones was normal. PT-OP-H Neuro Start: 12/22/18 14:35 Freq: Status: Active Protocol: Document 12/24/18 10:34 LRN (Rec: 12/24/18 15:06 LRN [id number]) Sensation Evaluation Gross Sensation Sensation Description Paresthesia Dermatome Impairments C6 T1 Comments Summary Comments Tingling was present in the R thumb and index finger with touch. PT-OP-J Posture/Palpation/Skin Start: 12/22/18 14:35 Freq: Status: Active Protocol: Document 12/24/18 10:34 LRN (Rec: 12/24/18 15:06 LRN [id number]) Palpation Assessment Location R thumb Palpation Location Abductor and extensor tendon Palpation Findings Edema Tenderness PT-OP-K Range of Motion Start: 12/22/18 14:35 Freq: Status: Active Protocol: Document 12/24/18 10:34 LRN (Rec: 12/24/18 15:06 LRN [id number]) Elbow/Forearm Range of Motion Elbow/Forearm Measured in Degrees Right Active Elbow/Forearm ROM WFL Yes ROM Testing Position Sitting Left Active Elbow/Forearm ROM WFL Yes ROM Testing Position Sitting Wrist Goniometric Range of Motion ROM Limitations Wrist Limitations of Range of Motion Pain Comments R Wrist flex is decreased. Thumb Goniometric Range of Motion Thumb Measured in Degrees Left CMC Extension Active (degrees) 50 Right CMC Extension Active (degrees) 35 Thumb ROM Limitations Thumb Range of Motion Limitations Pain Comments CMC Thumb ABD: 43 deg's right , 65 deg's left. PT-OP-L Special Tests Start: 12/22/18 14:35 Freq: Status: Active Protocol: Document 12/24/18 10:34 LRN (Rec: 12/24/18 15:06 LRN [id number]) Special Tests Wrist/Hand Special Tests Andi's Test Results Positive R Hand PT-OP-M Strength Start: 12/22/18 14:35 Freq: Status: Active Protocol: Document 12/24/18 10:34 LRN (Rec: 12/24/18 15:06 LRN [id number]) Elbow/Forearm Strength Elbow and Forearm Manual Muscle Testing Right Comments Strength - WNL Wrist Strength Wrist Manual Muscle Testing Left Reason Not Measured WFL Right Flexion (C7) 4+ Good+ Extension (C6) 4 Good Ulnar Deviation 5 Normal Radial Deviation 5 Normal Comments R wrist flexion/extension: Sharp pain present with testing. Finger/Thumb Strength Finger Manual Muscle Testing Right Thumb Extension (thumb C8) 3+ Fair+ Adduction 5 Normal Abduction (fingers T1) 5 Normal Hand Etl Architect/Pinch Strength Hand Dominance Hand Dominance Right Hand Strength Left Etl Architect (lbs) 21 Comments 3 Trails: 29#, 28#, 26# Right Etl Architect (lbs) 19 Comments 3 Trials: 20#, 19#, 20# (avg is 19.7#) PT-OP-Q Treatments Start: 12/22/18 14:35 Freq: Status: Active Protocol: Document 01/19/19 09:45 GGD (Rec: 01/19/19 11:26 GGD [email or web address]) Therapeutic Exercises Sitting Exercises 7 Sitting Exercise Name tendon gliding for de Quervains tendonitis Reps/Minutes x 10 reps Comments end with 30 second stretch Manual Therapy Treatment Soft Tissue Mobilization 2 Body Location manual STM and MFR of the forearm on the radial side of the wrist Comments manual stretching of the thumb adductor tendon and manual tendon glides 1 Body Location R thumb abductor tendon Mobilization Type Cross-Friction PT-OP-R Modalities Start: 12/22/18 14:35 Freq: Status: Active Protocol: Document 01/19/19 09:45 GGD (Rec: 01/19/19 11:26 GGD [email or web address]) Paraffin Bath Treatment Right Hand Treatment Technique Dip-immersion Duration (minutes) 6 Ultrasound Therapy Treatment Right Posterior Lateral Wrist Treatment Duration (minutes) 8 Patient Position Sitting Coupling Medium Ultrasound Gel Frequency Setting (mHz) 3 Mode Setting Pulsed Duty Cycle 50% Intensity Setting (w/cm2) 1 Comments Ultrasound to R thumb Abductor tendon. PT-OP-T Assessment and Plan Start: 12/22/18 14:35 Freq: Status: Active Protocol: Document 01/19/19 09:45 GGD (Rec: 01/19/19 11:26 GGD [email or web address]) Physical Therapy Assessment Goals Function Impairment Intermittent sharp pain at work (part-time) Senior Care Goal (LTG) Pt will be able to work a full shift without onset of R wrist pain. 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 LTG Duration 02/19/19 ROM Impairment Decreased R wrist mobility with +Finklestein's Test Geothermal Operating Engineer Goal (LTG) Pt will be able to demonstrate normal active R thumb and wrist mobility without pain. LTG Duration 02/05/19 Pain Impairment Pain rated 8/10 with activity use Short Term Goal (STG) Pt will show 50% improvement with pain intermittent with use. STG Duration 01/21/19 Senior Care Goal (LTG) Pt will be painfree with activities at work in the R medial wrist. LTG Duration 02/19/19 Self Care Impairment Pt lacks self care HEP Senior Care Goal (LTG) Pt will be independent with a self care HEP. LTG Duration 02/19/19 Assessment Summary Assessment Pt had decrease in pain with treatment. She did need cues for tendon glides. Physical Therapy Plan Frequency and Duration Frequency of Treatment 2x/Week Duration of Treatment 2 month Plan of Care Start Date 12/24/18 Plan of Care End Date 02/12/19 Next Visit Focus/Plan Next Note Type Treatment Note Next Visit Plan continue working on stretching and tendon gliding, assess right pec minor length
--- NOTE | 2019-01-22 10:20 | PT.OTN ---
Current Diagnoses Pain in right wrist (01/22/19) Physical Therapy Treatment Note PT-OP-A Visit Information Start: 12/22/18 14:35 Freq: Status: Active Protocol: Document 01/22/19 10:11 SA (Rec: 01/22/19 10:20 SA [email or web address]) Out-Patient Physical Therapy Visit Information Visit Information Visit Type Treatment Note Visit Start Time 09:00 Visit Stop Time 09:48 Total Visit Minutes 48 Visit Number 7 Number of ACID CONDITIONING WORKER Visits 2 PT-OP-B Current Condition Start: 12/22/18 14:35 Freq: Status: Active Protocol: Document 12/24/18 10:34 LRN (Rec: 12/24/18 10:56 LRN [id number]) Current Condition History of Current Condition Onset Date 04/2010 Current Complaints Pain in the R wrist present with activity History of Current Condition In April of 2010, while at work at [facility], a nurse and her were getting a pt out of bed and was trying to lift a tubing alongside the bed when her R hand came up, hitting her wrist on the bed rail. After her shift was over she went to the ER to have her wrist checked for fear something was broken. She was found to have no broken bone but possible nerve damage, and was told [address] Zendejas that she could have tendinitis or carpel tunnel in the future. With time she improved until an insidious onset of R medial wrist pain started in Jul 2018. 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 Currently, she has stiffness first in AM, and every time she uses her hand she has shooting pain from R lateral thumb MCP jt to mid lateral forearm. The pt is R handed. Prior Treatments and Tests Pt reports X-ray of 10/2018 showed no broken bones. Future Testing and Treatments Planned None Treatment Goals Patient/Caregiver Goals Eliminate the pain completely. 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 Current Functional Impairments (Reported) Functional Limitations- ADL's Limited with any use of R hand Functional Limitations- Work/School Still able to work. Intermittently dull pain comes on when typing on the keyboard (mid shift). Personal Factors Other Personal Factors That May Effect 2 daughters ages 2 and 6. Therapy/Recovery Occasional headaches. History of Depression. PT-OP-C Subjective Start: 12/22/18 14:35 Freq: Status: Active Protocol: Document 01/22/19 10:11 SA (Rec: 01/22/19 10:20 SA [email or web address]) OP-PT Subjective Patient Comments Patient Comments Pt reports feeling sore this AM, heat helped last visit and continues to wear brace. PT-OP-F Manual Assessment Start: 12/22/18 14:35 Freq: Status: Active Protocol: Document 12/24/18 10:34 LRN (Rec: 12/24/18 15:06 LRN [id number]) Manual Assessments Soft Tissue Assessment Soft Tissue Mobility Assessment Swelling present in the R wrist laterally. Joint Mobility Assessment Joint Mobility Assessment Joint mobility of R carpal bones was normal. PT-OP-H Neuro Start: 12/22/18 14:35 Freq: Status: Active Protocol: Document 12/24/18 10:34 LRN (Rec: 12/24/18 15:06 LRN [id number]) Sensation Evaluation Gross Sensation Sensation Description Paresthesia Dermatome Impairments C6 T1 Comments Summary Comments Tingling was present in the R thumb and index finger with touch. PT-OP-J Posture/Palpation/Skin Start: 12/22/18 14:35 Freq: Status: Active Protocol: Document 12/24/18 10:34 LRN (Rec: 12/24/18 15:06 LRN [id number]) Palpation Assessment Location R thumb Palpation Location Abductor and extensor tendon Palpation Findings Edema Tenderness PT-OP-K Range of Motion Start: 12/22/18 14:35 Freq: Status: Active Protocol: Document 12/24/18 10:34 LRN (Rec: 12/24/18 15:06 LRN [id number]) Elbow/Forearm Range of Motion Elbow/Forearm Measured in Degrees Right Active Elbow/Forearm ROM WFL Yes ROM Testing Position Sitting Left Active Elbow/Forearm ROM WFL Yes ROM Testing Position Sitting Wrist Goniometric Range of Motion ROM Limitations Wrist Limitations of Range of Motion Pain Comments R Wrist flex is decreased. Thumb Goniometric Range of Motion Thumb Measured in Degrees Left CMC Extension Active (degrees) 50 Right CMC Extension Active (degrees) 35 Thumb ROM Limitations Thumb Range of Motion Limitations Pain Comments CMC Thumb ABD: 43 deg's right , 65 deg's left. PT-OP-L Special Tests Start: 12/22/18 14:35 Freq: Status: Active Protocol: Document 12/24/18 10:34 LRN (Rec: 12/24/18 15:06 LRN [id number]) Special Tests Wrist/Hand Special Tests Andi's Test Results Positive R Hand PT-OP-M Strength Start: 12/22/18 14:35 Freq: Status: Active Protocol: Document 12/24/18 10:34 LRN (Rec: 12/24/18 15:06 LRN [id number]) Elbow/Forearm Strength Elbow and Forearm Manual Muscle Testing Right Comments Strength - WNL Wrist Strength Wrist Manual Muscle Testing Left Reason Not Measured WFL Right Flexion (C7) 4+ Good+ Extension (C6) 4 Good Ulnar Deviation 5 Normal Radial Deviation 5 Normal Comments R wrist flexion/extension: Sharp pain present with testing. Finger/Thumb Strength Finger Manual Muscle Testing Right Thumb Extension (thumb C8) 3+ Fair+ Adduction 5 Normal Abduction (fingers T1) 5 Normal Hand Servicenow Administrator Developer/Pinch Strength Hand Dominance Hand Dominance Right Hand Strength Left Servicenow Administrator Developer (lbs) 21 Comments 3 Trails: 29#, 28#, 26# Right Servicenow Administrator Developer (lbs) 19 Comments 3 Trials: 20#, 19#, 20# (avg is 19.7#) PT-OP-Q Treatments Start: 12/22/18 14:35 Freq: Status: Active Protocol: Document 01/22/19 10:11 SA (Rec: 01/22/19 10:20 SA [email or web address]) Therapeutic Exercises Sitting Exercises 7 Sitting Exercise Name tendon gliding for de Quervains tendonitis Reps/Minutes x 10 reps Comments end with 30 second stretch 2 Sitting Exercise Name Wrist deviations Side right Reps/Minutes x 15 reps x 2 1 Sitting Exercise Name wrist flexor and extensor stretch Reps/Minutes 15 res x 2 Manual Therapy Treatment Soft Tissue Mobilization 2 Body Location manual STM and MFR of the forearm on the radial side of the wrist Comments manual stretching of the thumb adductor tendon and manual tendon glides 1 Body Location R thumb abductor tendon Mobilization Type Cross-Friction PT-OP-R Modalities Start: 12/22/18 14:35 Freq: Status: Active Protocol: Document 01/22/19 10:11 SA (Rec: 01/22/19 10:20 SA [email or web address]) Paraffin Bath Treatment Right Hand Treatment Technique Dip-immersion Duration (minutes) 6 Ultrasound Therapy Treatment Right Posterior Lateral Wrist Treatment Duration (minutes) 8 Patient Position Sitting Coupling Medium Ultrasound Gel Frequency Setting (mHz) 3 Mode Setting Pulsed Duty Cycle 50% Intensity Setting (w/cm2) 1 Comments Ultrasound to R thumb Abductor tendon. PT-OP-T Assessment and Plan Start: 12/22/18 14:35 Freq: Status: Active Protocol: Document 01/22/19 10:11 (Rec: 01/22/19 10:20 [email or web address]) Physical Therapy Assessment Assessment Summary Assessment Pt feeling a little sore this AM but thinks picking up 2y/o daughter aggravates symptoms. Heat and brace seem to be helping. Able to do tendon glides. Physical Therapy Plan Next Visit Focus/Plan Next Note Type Treatment Note Next Visit Plan continue working on stretching and tendon gliding, assess right pec minor length
--- NOTE | 2019-01-25 16:07 | PT.OTN ---
Current Diagnoses Pain in right wrist (01/25/19) Physical Therapy Treatment Note PT-OP-A Visit Information Start: 12/22/18 14:35 Freq: Status: Active Protocol: Document 01/25/19 09:49 LRN (Rec: 01/25/19 10:38 LRN [id number]) Out-Patient Physical Therapy Visit Information Visit Information Visit Type Treatment Note Visit Start Time 09:49 Visit Stop Time 10:38 Total Visit Minutes 41 Visit Number 8 Number of ELECTION CLERK Visits 2 Evaluation Information Evaluation Date 12/24/18 PT-OP-B Current Condition Start: 12/22/18 14:35 Freq: Status: Active Protocol: Document 12/24/18 10:34 LRN (Rec: 12/24/18 10:56 LRN [id number]) Current Condition History of Current Condition Onset Date 04/2010 Current Complaints Pain in the R wrist present with activity History of Current Condition In April of 2010, while at work at [facility], a nurse and her were getting a pt out of bed and was trying to lift a tubing alongside the bed when her R hand came up, hitting her wrist on the bed rail. After her shift was over she went to the ER to have her wrist checked for fear something was broken. She was found to have no broken bone but possible nerve damage, and was told [address] Zendejas that she could have tendinitis or carpel tunnel in the future. With time she improved until an insidious onset of R medial wrist pain started in Jul 2018. 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. Currently, she has stiffness first in AM, and every time she uses her hand she has shooting pain from R lateral thumb MCP jt to mid lateral forearm. The pt is R handed. Prior Treatments and Tests Pt reports X-ray of 10/2018 showed no broken bones. Future Testing and Treatments Planned None Treatment Goals Patient/Caregiver Goals Eliminate the pain completely. 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 Current Functional Impairments (Reported) Functional Limitations- ADL's Limited with any use of R hand Functional Limitations- Work/School Still able to work. Intermittently dull pain comes on when typing on the keyboard (mid shift). Personal Factors Other Personal Factors That May Effect 2 daughters ages 2 and 6. Therapy/Recovery Occasional headaches. History of Depression. PT-OP-C Subjective Start: 12/22/18 14:35 Freq: Status: Active Protocol: Document 01/25/19 09:49 LRN (Rec: 01/25/19 10:38 LRN [id number]) OP-PT Subjective Patient Comments Patient Comments States she has not changed much. She is working 2 days/ week for a total of 8.5 hours/ week. 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 States Ultrasound & DTM helps the most. Patient Reported Progress Same OP-PT Pain Assessment Pain Assessment Grid Paper Pain Assessment Grid Completed No Location R wrist Pain Location Details Radial side of R wrist. Intensity 6 Description Aching Sharp PT-OP-F Manual Assessment Start: 12/22/18 14:35 Freq: Status: Active Protocol: Document 12/24/18 10:34 LRN (Rec: 12/24/18 15:06 LRN [id number]) Manual Assessments Soft Tissue Assessment Soft Tissue Mobility Assessment Swelling present in the R wrist laterally. Joint Mobility Assessment Joint Mobility Assessment Joint mobility of R carpal bones was normal. PT-OP-H Neuro Start: 12/22/18 14:35 Freq: Status: Active Protocol: Document 12/24/18 10:34 LRN (Rec: 12/24/18 15:06 LRN [id number]) Sensation Evaluation Gross Sensation Sensation Description Paresthesia Dermatome Impairments C6 T1 Comments Summary Comments Tingling was present in the R thumb and index finger with touch. PT-OP-J Posture/Palpation/Skin Start: 12/22/18 14:35 Freq: Status: Active Protocol: Document 12/24/18 10:34 LRN (Rec: 12/24/18 15:06 LRN [id number]) Palpation Assessment Location R thumb Palpation Location Abductor and extensor tendon Palpation Findings Edema Tenderness PT-OP-K Range of Motion Start: 12/22/18 14:35 Freq: Status: Active Protocol: Document 12/24/18 10:34 LRN (Rec: 12/24/18 15:06 LRN [id number]) Elbow/Forearm Range of Motion Elbow/Forearm Measured in Degrees Right Active Elbow/Forearm ROM WFL Yes ROM Testing Position Sitting Left Active Elbow/Forearm ROM WFL Yes ROM Testing Position Sitting Wrist Goniometric Range of Motion ROM Limitations Wrist Limitations of Range of Motion Pain Comments R Wrist flex is decreased. Thumb Goniometric Range of Motion Thumb Measured in Degrees Left CMC Extension Active (degrees) 50 Right CMC Extension Active (degrees) 35 Thumb ROM Limitations Thumb Range of Motion Limitations Pain Comments CMC Thumb ABD: 43 deg's right , 65 deg's left. PT-OP-L Special Tests Start: 12/22/18 14:35 Freq: Status: Active Protocol: Document 01/25/19 09:49 LRN (Rec: 01/25/19 16:04 LRN [id number]) Special Tests Cervical Spine Special Tests Upper Limb Tension Test Test Results Positive Foraminal Compression Test Results Negative PT-OP-M Strength Start: 12/22/18 14:35 Freq: Status: Active Protocol: Document 12/24/18 10:34 LRN (Rec: 12/24/18 15:06 LRN [id number]) Elbow/Forearm Strength Elbow and Forearm Manual Muscle Testing Right Comments Strength - WNL Wrist Strength Wrist Manual Muscle Testing Left Reason Not Measured WFL Right Flexion (C7) 4+ Good+ Extension (C6) 4 Good Ulnar Deviation 5 Normal Radial Deviation 5 Normal Comments R wrist flexion/extension: Sharp pain present with testing. Finger/Thumb Strength Finger Manual Muscle Testing Right Thumb Extension (thumb C8) 3+ Fair+ Adduction 5 Normal Abduction (fingers T1) 5 Normal Hand Security Coordinator/Pinch Strength Hand Dominance Hand Dominance Right Hand Strength Left Security Coordinator (lbs) 21 Comments 3 Trails: 29#, 28#, 26# Right Security Coordinator (lbs) 19 Comments 3 Trials: 20#, 19#, 20# (avg is 19.7#) PT-OP-Q Treatments Start: 12/22/18 14:35 Freq: Status: Active Protocol: Document 01/25/19 09:49 LRN (Rec: 01/25/19 10:38 LRN [id number]) Therapeutic Exercises Sitting Exercises Tricep press Side right Resistance 3# Elbow Curl Side right Resistance 3# Reps/Minutes 20x 7 Sitting Exercise Name tendon gliding for de Quervains tendonitis Reps/Minutes x 10 reps Comments end with 30 second stretch 5 Sitting Exercise Name supination/pronation Resistance 1# Reps/Minutes 10 1 Sitting Exercise Name wrist flexor and extensor stretch Resistance 2# Reps/Minutes 15 res x 2 Manual Therapy Treatment Soft Tissue Mobilization 2 Body Location manual STM and MFR of the forearm on the radial side of the wrist Mobilization Type Strumming Trigger Point Release Comments Gentle manual stretching of the thumb adductor tendon and manual tendon glides Self-Care/Home Management Treatment Education Patient Education Home Exercise Program Activities Self-Care/Home Management Activities I/S pt in self care: self massage to R forearm and increase use of ice at home. PT-OP-R Modalities Start: 12/22/18 14:35 Freq: Status: Active Protocol: Document 01/25/19 09:49 LRN (Rec: 01/25/19 10:38 LRN [id number]) Ultrasound Therapy Treatment Right Posterior Lateral Wrist Treatment Duration (minutes) 8 Patient Position Sitting Coupling Medium Ultrasound Gel Frequency Setting (mHz) 3 Mode Setting Pulsed Duty Cycle 50% Intensity Setting (w/cm2) 1 Comments Ultrasound to R thumb Abductor tendon. PT-OP-T Assessment and Plan Start: 12/22/18 14:35 Freq: Status: Active Protocol: Document 01/25/19 09:49 LRN (Rec: 01/25/19 10:38 LRN [id number]) Physical Therapy Assessment Goals Function Impairment Intermittent sharp pain at work (part-time) Assisted Goal (LTG) Pt will be able to work a full shift without onset of R wrist pain. LTG Duration 02/19/19 Strength Impairment Decreased R animal trapper strength due to pain. Mammography Technician Goal (LTG) Pt will demonstrate animal trapper strength 30-33 kg's (normal for ages 35-39 year olds). LTG Duration 02/19/19 ROM Impairment Decreased R wrist mobility with +Finklestein's Test Mammography Technician Goal (LTG) Pt will be able to demonstrate normal active R thumb and wrist mobility without pain. LTG Duration 02/05/19 Pain Impairment Pain rated 8/10 with activity use Short Term Goal (STG) Pt will show 50% improvement with pain intermittent with use. STG Duration 01/21/19 Mammography Technician Goal (LTG) Pt will be painfree with activities at work in the R medial wrist. LTG Duration 02/19/19 Self Care Impairment Pt lacks self care HEP Assisted Goal (LTG) Pt will be independent with a self care HEP. 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 Assessment Summary Assessment Pt pain complaints are the same. She may not be icing enough at home and could benefit from self massage of the forearm. Pt may benefit from K-tape for stability at the R thumb and/or space correction or relaxation of thumb ABD. Physical Therapy Plan Frequency and Duration Frequency of Treatment 2x/Week Duration of Treatment 2 month Plan of Care Start Date 12/24/18 Plan of Care End Date 02/12/19 Next Visit Focus/Plan Next Note Type Treatment Note Next Visit Plan Assess right pec minor length. Start with ex, stretch tendopn gliding, US, K-tape or ?iontophoresis, ice. PN in 2 visits.
--- NOTE | 2019-01-28 12:56 | PT.OTN ---
Current Diagnoses Pain in right wrist (01/28/19) Physical Therapy Treatment Note PT-OP-A Visit Information Start: 12/22/18 14:35 Freq: Status: Active Protocol: Document 01/28/19 12:11 EA (Rec: 01/28/19 12:14 EA [id number]) Out-Patient Physical Therapy Visit Information Visit Information Visit Type Treatment Note Visit Start Time 09:45 Visit Stop Time 10:30 Total Visit Minutes 45 Visit Number 9 Number of PLAN REP Visits 1 PT-OP-B Current Condition Start: 12/22/18 14:35 Freq: Status: Active Protocol: Document 12/24/18 10:34 LRN (Rec: 12/24/18 10:56 LRN [id number]) Current Condition History of Current Condition Onset Date 04/2010 Current Complaints Pain in the R wrist present with activity History of Current Condition In April of 2010, while at work at [facility] [employer], a nurse and her were getting a pt out of bed and was trying to lift a tubing alongside the bed when her R hand came up, hitting her wrist on the bed rail. After her shift was over she went to the ER to have her wrist checked for fear something was broken. She was found to have no broken bone but possible nerve damage, and was told [address] Zendejas that she could have tendinitis or carpel tunnel in the future. With time she improved until an insidious onset of R medial wrist pain started in Jul 2018. 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 Currently, she has stiffness first in AM, and every time she uses her hand she has shooting pain from R lateral thumb MCP jt to mid lateral forearm. The pt is R handed. Prior Treatments and Tests Pt reports X-ray of 10/2018 showed no broken bones. Future Testing and Treatments Planned None Treatment Goals Patient/Caregiver Goals Eliminate the pain completely. 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 Current Functional Impairments (Reported) Functional Limitations- ADL's Limited with any use of R hand Functional Limitations- Work/School Still able to work. Intermittently dull pain comes on when typing on the keyboard (mid shift). Personal Factors Other Personal Factors That May Effect 2 daughters ages 2 and 6. Therapy/Recovery Occasional headaches. History of Depression. PT-OP-C Subjective Start: 12/22/18 14:35 Freq: Status: Active Protocol: Document 01/28/19 12:11 EA (Rec: 01/28/19 12:14 EA [id number]) OP-PT Subjective Patient Comments Patient Comments Pt reports still hruts when she lift heavy object but learned to modify. PT-OP-F Manual Assessment Start: 12/22/18 14:35 Freq: Status: Active Protocol: Document 12/24/18 10:34 LRN (Rec: 12/24/18 15:06 LRN [id number]) Manual Assessments Soft Tissue Assessment Soft Tissue Mobility Assessment Swelling present in the R wrist laterally. Joint Mobility Assessment Joint Mobility Assessment Joint mobility of R carpal bones was normal. PT-OP-H Neuro Start: 12/22/18 14:35 Freq: Status: Active Protocol: Document 12/24/18 10:34 LRN (Rec: 12/24/18 15:06 LRN [id number]) Sensation Evaluation Gross Sensation Sensation Description Paresthesia Dermatome Impairments C6 T1 Comments Summary Comments Tingling was present in the R thumb and index finger with touch. PT-OP-J Posture/Palpation/Skin Start: 12/22/18 14:35 Freq: Status: Active Protocol: Document 12/24/18 10:34 LRN (Rec: 12/24/18 15:06 LRN [id number]) Palpation Assessment Location R thumb Palpation Location Abductor and extensor tendon Palpation Findings Edema Tenderness PT-OP-K Range of Motion Start: 12/22/18 14:35 Freq: Status: Active Protocol: Document 12/24/18 10:34 LRN (Rec: 12/24/18 15:06 LRN [id number]) Elbow/Forearm Range of Motion Elbow/Forearm Measured in Degrees Right Active Elbow/Forearm ROM WFL Yes ROM Testing Position Sitting Left Active Elbow/Forearm ROM WFL Yes ROM Testing Position Sitting Wrist Goniometric Range of Motion ROM Limitations Wrist Limitations of Range of Motion Pain Comments R Wrist flex is decreased. Thumb Goniometric Range of Motion Thumb Measured in Degrees Left CMC Extension Active (degrees) 50 Right CMC Extension Active (degrees) 35 Thumb ROM Limitations Thumb Range of Motion Limitations Pain Comments CMC Thumb ABD: 43 deg's right , 65 deg's left. PT-OP-L Special Tests Start: 12/22/18 14:35 Freq: Status: Active Protocol: Document 01/25/19 09:49 LRN (Rec: 01/25/19 16:04 LRN [id number]) Special Tests Cervical Spine Special Tests Upper Limb Tension Test Test Results Positive Foraminal Compression Test Results Negative PT-OP-M Strength Start: 12/22/18 14:35 Freq: Status: Active Protocol: Document 12/24/18 10:34 LRN (Rec: 12/24/18 15:06 LRN [id number]) Elbow/Forearm Strength Elbow and Forearm Manual Muscle Testing Right Comments Strength - WNL Wrist Strength Wrist Manual Muscle Testing Left Reason Not Measured WFL Right Flexion (C7) 4+ Good+ Extension (C6) 4 Good Ulnar Deviation 5 Normal Radial Deviation 5 Normal Comments R wrist flexion/extension: Sharp pain present with testing. Finger/Thumb Strength Finger Manual Muscle Testing Right Thumb Extension (thumb C8) 3+ Fair+ Adduction 5 Normal Abduction (fingers T1) 5 Normal Hand Form Coverer/Pinch Strength Hand Dominance Hand Dominance Right Hand Strength Left Form Coverer (lbs) 21 Comments 3 Trails: 29#, 28#, 26# Right Form Coverer (lbs) 19 Comments 3 Trials: 20#, 19#, 20# (avg is 19.7#) PT-OP-Q Treatments Start: 12/22/18 14:35 Freq: Status: Active Protocol: Document 01/28/19 12:11 EA (Rec: 01/28/19 12:14 EA [id number]) Therapeutic Exercises Sitting Exercises 7 Sitting Exercise Name tendon gliding for de Quervains tendonitis Reps/Minutes x 10 reps Comments end with 30 second stretch 6 Sitting Exercise Name soft paraffin wax: thumb flexion/extension (DIP/PIP) Reps/Minutes x 10 reps 5 Sitting Exercise Name supination/pronation Resistance 2# Reps/Minutes 10 3 Sitting Exercise Name Shoulder abduction and flexion Side right Resistance 3 Reps/Minutes 20 1 Sitting Exercise Name wrist flexor and extensor stretch Resistance 2# Reps/Minutes 15 res x 2 Manual Therapy Treatment Soft Tissue Mobilization 2 Body Location manual STM and MFR of the forearm on the radial side of the wrist Mobilization Type Strumming Trigger Point Release Comments Gentle manual stretching of the thumb adductor tendon and manual tendon glides 1 Body Location R thumb abductor tendon Mobilization Type Cross-Friction PT-OP-R Modalities Start: 12/22/18 14:35 Freq: Status: Active Protocol: Document 01/28/19 12:11 EA (Rec: 01/28/19 12:14 EA [id number]) Paraffin Bath Treatment Right Hand Treatment Technique Dip-immersion Duration (minutes) 6 Ultrasound Therapy Treatment Right Posterior Lateral Wrist Treatment Duration (minutes) 8 Patient Position Sitting Coupling Medium Ultrasound Gel Frequency Setting (mHz) 3 Mode Setting Pulsed Duty Cycle 50% Intensity Setting (w/cm2) 1 Comments Ultrasound to R thumb Abductor tendon. PT-OP-T Assessment and Plan Start: 12/22/18 14:35 Freq: Status: Active Protocol: Document 01/28/19 12:11 EA (Rec: 01/28/19 12:14 EA [id number]) Physical Therapy Assessment Assessment Summary Assessment Tolerated manual treatment but with mild discomfort during radial deviation exercises.
--- NOTE | 2019-02-02 17:02 | PT.OTN ---
Current Diagnoses Pain in right wrist (02/02/19) Physical Therapy Treatment Note PT-OP-A Visit Information Start: 12/22/18 14:35 Freq: Status: Active Protocol: Document 02/02/19 10:34 LRN (Rec: 02/02/19 11:19 LRN [id number]) Out-Patient Physical Therapy Visit Information Visit Information Visit Type Treatment Note Visit Note New POC needed 02/12/19. Visit Start Time 10:34 Visit Stop Time 11:17 Total Visit Minutes 43 Visit Number 10 Evaluation Information Evaluation Date 12/24/18 PT-OP-B Current Condition Start: 12/22/18 14:35 Freq: Status: Active Protocol: Document 12/24/18 10:34 LRN (Rec: 12/24/18 10:56 LRN [id number]) Current Condition History of Current Condition Onset Date 04/2010 Current Complaints Pain in the R wrist present with activity History of Current Condition In April of 2010, while at work at [facility], a nurse and her were getting a pt out of bed and was trying to lift a tubing alongside the bed when her R hand came up, hitting her wrist on the bed rail. After her shift was over she went to the ER to have her wrist checked for fear something was broken. She was found to have no broken bone but possible nerve damage, and was told [address] Zendejas that she could have tendinitis or carpel tunnel in the future. With time she improved until an insidious onset of R medial wrist pain started in Jul 2018. 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 Currently, she has stiffness first in AM, and every time she uses her hand she has shooting pain from R lateral thumb MCP jt to mid lateral forearm. The pt is R handed. Prior Treatments and Tests Pt reports X-ray of 10/2018 showed no broken bones. Future Testing and Treatments Planned None Treatment Goals Patient/Caregiver Goals Eliminate the pain completely. 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 Current Functional Impairments (Reported) Functional Limitations- ADL's Limited with any use of R hand Functional Limitations- Work/School Still able to work. Intermittently dull pain comes on when typing on the keyboard (mid shift). Personal Factors Other Personal Factors That May Effect 2 daughters ages 2 and 6. Therapy/Recovery Occasional headaches. History of Depression. PT-OP-C Subjective Start: 12/22/18 14:35 Freq: Status: Active Protocol: Document 02/02/19 10:34 LRN (Rec: 02/02/19 11:19 LRN [id number]) OP-PT Subjective Patient Comments Patient Comments Today her R thumb is doing better. Worked 4 days ago. Putting phone away into pocket and while she was quickly reaching for her phone, her thumb got caught on a chair causing pain. She has been icing a lot and stretching. it . Pain has been 0-6/10, today it is 6/10 but not a sharp pain but an achy pain. PT-OP-F Manual Assessment Start: 12/22/18 14:35 Freq: Status: Active Protocol: Document 12/24/18 10:34 LRN (Rec: 12/24/18 15:06 LRN [id number]) Manual Assessments Soft Tissue Assessment Soft Tissue Mobility Assessment Swelling present in the R wrist laterally. Joint Mobility Assessment Joint Mobility Assessment Joint mobility of R carpal bones was normal. PT-OP-H Neuro Start: 12/22/18 14:35 Freq: Status: Active Protocol: Document 12/24/18 10:34 LRN (Rec: 12/24/18 15:06 LRN [id number]) Sensation Evaluation Gross Sensation Sensation Description Paresthesia Dermatome Impairments C6 T1 Comments Summary Comments Tingling was present in the R thumb and index finger with touch. PT-OP-J Posture/Palpation/Skin Start: 12/22/18 14:35 Freq: Status: Active Protocol: Document 12/24/18 10:34 LRN (Rec: 12/24/18 15:06 LRN [id number]) Palpation Assessment Location R thumb Palpation Location Abductor and extensor tendon Palpation Findings Edema Tenderness PT-OP-K Range of Motion Start: 12/22/18 14:35 Freq: Status: Active Protocol: Document 12/24/18 10:34 LRN (Rec: 12/24/18 15:06 LRN [id number]) Elbow/Forearm Range of Motion Elbow/Forearm Measured in Degrees Right Active Elbow/Forearm ROM WFL Yes ROM Testing Position Sitting Left Active Elbow/Forearm ROM WFL Yes ROM Testing Position Sitting Wrist Goniometric Range of Motion ROM Limitations Wrist Limitations of Range of Motion Pain Comments R Wrist flex is decreased. Thumb Goniometric Range of Motion Thumb Measured in Degrees Left CMC Extension Active (degrees) 50 Right CMC Extension Active (degrees) 35 Thumb ROM Limitations Thumb Range of Motion Limitations Pain Comments CMC Thumb ABD: 43 deg's right , 65 deg's left. PT-OP-L Special Tests Start: 12/22/18 14:35 Freq: Status: Active Protocol: Document 01/25/19 09:49 LRN (Rec: 01/25/19 16:04 LRN [id number]) Special Tests Cervical Spine Special Tests Upper Limb Tension Test Test Results Positive Foraminal Compression Test Results Negative PT-OP-M Strength Start: 12/22/18 14:35 Freq: Status: Active Protocol: Document 12/24/18 10:34 LRN (Rec: 12/24/18 15:06 LRN [id number]) Elbow/Forearm Strength Elbow and Forearm Manual Muscle Testing Right Comments Strength - WNL Wrist Strength Wrist Manual Muscle Testing Left Reason Not Measured WFL Right Flexion (C7) 4+ Good+ Extension (C6) 4 Good Ulnar Deviation 5 Normal Radial Deviation 5 Normal Comments R wrist flexion/extension: Sharp pain present with testing. Finger/Thumb Strength Finger Manual Muscle Testing Right Thumb Extension (thumb C8) 3+ Fair+ Adduction 5 Normal Abduction (fingers T1) 5 Normal Hand Building Contractor/Pinch Strength Hand Dominance Hand Dominance Right Hand Strength Left Building Contractor (lbs) 21 Comments 3 Trails: 29#, 28#, 26# Right Building Contractor (lbs) 19 Comments 3 Trials: 20#, 19#, 20# (avg is 19.7#) PT-OP-Q Treatments Start: 12/22/18 14:35 Freq: Status: Active Protocol: Document 02/02/19 10:34 LRN (Rec: 02/02/19 11:19 LRN [id number]) Therapeutic Exercises Sitting Exercises Tricep press Side right 7 Sitting Exercise Name tendon gliding for de Quervains tendonitis Reps/Minutes x 10 reps Comments end with 30 second stretch 2 Sitting Exercise Name Wrist deviations Side right Reps/Minutes x 15 reps x 2 Manual Therapy Treatment Soft Tissue Mobilization 2 Body Location manual STM/MFR of the forearm on the radial side of the wrist Mobilization Type Strumming Trigger Point Release Comments Gentle manual stretching of the thumb adductor tendon and manual tendon glides PT-OP-R Modalities Start: 12/22/18 14:35 Freq: Status: Active Protocol: Document 02/02/19 10:34 LRN (Rec: 02/02/19 11:19 LRN [id number]) Iontophoresis Treatment R wrist Treatment Medication Dexamethasone (-) Ultrasound Therapy Treatment Right Posterior Lateral Wrist Treatment Duration (minutes) 8 Patient Position Sitting Coupling Medium Ultrasound Gel Frequency Setting (mHz) 3 Mode Setting Pulsed Duty Cycle 50% Intensity Setting (w/cm2) 1 Comments Ultrasound to R thumb Abductor tendon. PT-OP-T Assessment and Plan Start: 12/22/18 14:35 Freq: Status: Active Protocol: Document 02/02/19 10:34 LRN (Rec: 02/02/19 11:19 LRN [id number]) Physical Therapy Assessment Goals Function Impairment Intermittent sharp pain at work (part-time) Mcfp Goal (LTG) Pt will be able to work a full shift without onset of R wrist pain. 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 Rail Walker Goal (LTG) Pt will demonstrate adult day care worker strength 30-33 kg's (normal for ages 35-39 year olds). LTG Duration 02/19/19 ROM Impairment Decreased R wrist mobility with +Finklestein's Test Rail Walker Goal (LTG) Pt will be able to demonstrate normal active R thumb and wrist mobility without pain. LTG Duration 02/05/19 Pain Impairment Pain rated 8/10 with activity use Short Term Goal (STG) Pt will show 50% improvement with pain intermittent with use. STG Duration 01/21/19 Mcfp Goal (LTG) Pt will be painfree with activities at work in the R medial wrist. LTG Duration 02/19/19 Self Care Impairment Pt lacks self care HEP Rail Walker Goal (LTG) Pt will be independent with a self care HEP. 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 Assessment Summary Assessment Pt was slowly improving, but apparently strained her R thumb into extension accidently. She has been more sore but has been icing more. Pt is tender along thumb extensor tendon and had muscle tightness of thumb extensor. Physical Therapy Plan Frequency and Duration Frequency of Treatment 2x/Week Duration of Treatment 2 month Plan of Care Start Date 12/24/18 Plan of Care End Date 02/12/19 Next Visit Focus/Plan Next Note Type Treatment Note Next Visit Plan Assess right pec minor length and response to Iontophoresis. Start with ex, stretch tendon, gliding, US, K-tape or ?iontophoresis, ?ice. New POC 02/12/19. Assess goals.
--- NOTE | 2019-02-05 15:17 | PT.OTN ---
Current Diagnoses Pain in right wrist (02/05/19) Physical Therapy Treatment Note PT-OP-A Visit Information Start: 12/22/18 14:35 Freq: Status: Active Protocol: Document 02/05/19 09:47 LRN (Rec: 02/05/19 10:36 LRN [id number]) Out-Patient Physical Therapy Visit Information Visit Information Visit Type Treatment Note Visit Note New POC needed 02/12/19. Visit Start Time 09:47 Visit Stop Time 10:33 Total Visit Minutes 46 Visit Number 11 Number of MACHINE SANDER Visits 0 Evaluation Information Evaluation Date 12/24/18 PT-OP-B Current Condition Start: 12/22/18 14:35 Freq: Status: Active Protocol: Document 12/24/18 10:34 LRN (Rec: 12/24/18 10:56 LRN [id number]) Current Condition History of Current Condition Onset Date 04/2010 Current Complaints Pain in the R wrist present with activity History of Current Condition In April of 2010, while at work at [facility], a nurse and her were getting a pt out of bed and was trying to lift a tubing alongside the bed when her R hand came up, hitting her wrist on the bed rail. After her shift was over she went to the ER to have her wrist checked for fear something was broken. She was found to have no broken bone but possible nerve damage, and was told [address] Zendejas that she could have tendinitis or carpel tunnel in the future. With time she improved until an insidious onset of R medial wrist pain started in Jul 2018. 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 Currently, she has stiffness first in AM, and every time she uses her hand she has shooting pain from R lateral thumb MCP jt to mid lateral forearm. The pt is R handed. Prior Treatments and Tests Pt reports X-ray of 10/2018 showed no broken bones. Future Testing and Treatments Planned None Treatment Goals Patient/Caregiver Goals Eliminate the pain completely. 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 Current Functional Impairments (Reported) Functional Limitations- ADL's Limited with any use of R hand Functional Limitations- Work/School Still able to work. Intermittently dull pain comes on when typing on the keyboard (mid shift). Personal Factors Other Personal Factors That May Effect 2 daughters ages 2 and 6. Therapy/Recovery Occasional headaches. History of Depression. PT-OP-C Subjective Start: 12/22/18 14:35 Freq: Status: Active Protocol: Document 02/05/19 09:47 LRN (Rec: 02/05/19 10:36 LRN [id number]) OP-PT Subjective Patient Comments Patient Comments A little better with the ( Iontophoresis) patch PT-OP-F Manual Assessment Start: 12/22/18 14:35 Freq: Status: Active Protocol: Document 12/24/18 10:34 LRN (Rec: 12/24/18 15:06 LRN [id number]) Manual Assessments Soft Tissue Assessment Soft Tissue Mobility Assessment Swelling present in the R wrist laterally. Joint Mobility Assessment Joint Mobility Assessment Joint mobility of R carpal bones was normal. PT-OP-H Neuro Start: 12/22/18 14:35 Freq: Status: Active Protocol: Document 12/24/18 10:34 LRN (Rec: 12/24/18 15:06 LRN [id number]) Sensation Evaluation Gross Sensation Sensation Description Paresthesia Dermatome Impairments C6 T1 Comments Summary Comments Tingling was present in the R thumb and index finger with touch. PT-OP-J Posture/Palpation/Skin Start: 12/22/18 14:35 Freq: Status: Active Protocol: Document 12/24/18 10:34 LRN (Rec: 12/24/18 15:06 LRN [id number]) Palpation Assessment Location R thumb Palpation Location Abductor and extensor tendon Palpation Findings Edema Tenderness PT-OP-K Range of Motion Start: 12/22/18 14:35 Freq: Status: Active Protocol: Document 12/24/18 10:34 LRN (Rec: 12/24/18 15:06 LRN [id number]) Elbow/Forearm Range of Motion Elbow/Forearm Measured in Degrees Right Active Elbow/Forearm ROM WFL Yes ROM Testing Position Sitting Left Active Elbow/Forearm ROM WFL Yes ROM Testing Position Sitting Wrist Goniometric Range of Motion ROM Limitations Wrist Limitations of Range of Motion Pain Comments R Wrist flex is decreased. Thumb Goniometric Range of Motion Thumb Measured in Degrees Left CMC Extension Active (degrees) 50 Right CMC Extension Active (degrees) 35 Thumb ROM Limitations Thumb Range of Motion Limitations Pain Comments CMC Thumb ABD: 43 deg's right , 65 deg's left. PT-OP-L Special Tests Start: 12/22/18 14:35 Freq: Status: Active Protocol: Document 01/25/19 09:49 LRN (Rec: 01/25/19 16:04 LRN [id number]) Special Tests Cervical Spine Special Tests Upper Limb Tension Test Test Results Positive Foraminal Compression Test Results Negative PT-OP-M Strength Start: 12/22/18 14:35 Freq: Status: Active Protocol: Document 12/24/18 10:34 LRN (Rec: 12/24/18 15:06 LRN [id number]) Elbow/Forearm Strength Elbow and Forearm Manual Muscle Testing Right Comments Strength - WNL Wrist Strength Wrist Manual Muscle Testing Left Reason Not Measured WFL Right Flexion (C7) 4+ Good+ Extension (C6) 4 Good Ulnar Deviation 5 Normal Radial Deviation 5 Normal Comments R wrist flexion/extension: Sharp pain present with testing. Finger/Thumb Strength Finger Manual Muscle Testing Right Thumb Extension (thumb C8) 3+ Fair+ Adduction 5 Normal Abduction (fingers T1) 5 Normal Hand Trim Master Operator/Pinch Strength Hand Dominance Hand Dominance Right Hand Strength Left Trim Master Operator (lbs) 21 Comments 3 Trails: 29#, 28#, 26# Right Trim Master Operator (lbs) 19 Comments 3 Trials: 20#, 19#, 20# (avg is 19.7#) PT-OP-Q Treatments Start: 12/22/18 14:35 Freq: Status: Active Protocol: Document 02/05/19 09:47 LRN (Rec: 02/05/19 10:36 LRN [id number]) Therapeutic Exercises Sitting Exercises 7 Sitting Exercise Name tendon gliding for de Quervains tendonitis Reps/Minutes x 10 reps Comments end with 30 second stretch 5 Sitting Exercise Name supination/pronation stretch during Ultasound 2 Sitting Exercise Name Wrist deviations Side right Manual Therapy Treatment Soft Tissue Mobilization 2 Body Location manual STM/MFR of the forearm on the radial side of the wrist Mobilization Type Strumming Trigger Point Release Comments Gentle manual stretching of the thumb adductor tendon and manual tendon glides 1 Body Location R thumb AD, AB, ext muscle bellies Mobilization Type Cross-Friction PT-OP-R Modalities Start: 12/22/18 14:35 Freq: Status: Active Protocol: Document 02/05/19 09:47 LRN (Rec: 02/05/19 10:36 LRN [id number]) Iontophoresis Treatment R wrist Treatment Medication Dexamethasone (-) Treatment Polarity Negative to Negative Patient Tolerance Excellent Ultrasound Therapy Treatment Right Posterior Lateral Wrist Treatment Duration (minutes) 8 Patient Position Sitting Coupling Medium Ultrasound Gel Applicator Size (cm2) 2 Frequency Setting (mHz) 1 Mode Setting Pulsed Duty Cycle 50% Intensity Setting (w/cm2) 1.5 Comments Ultrasound to R thumb Adductor muscle anterior & posterior. PT-OP-T Assessment and Plan Start: 12/22/18 14:35 Freq: Status: Active Protocol: Document 02/05/19 09:47 LRN (Rec: 02/05/19 10:36 [facility] [id number]) Physical Therapy Assessment Progress Towards Goals Progress Towards Goals Slow Progress - Other Assessment Summary Assessment +response to Iontophoresis with some reduction in pain. Pt is tender at the radial head and with thumb extension. Muscle tightness of thumb AD and extensor/AB with active trP's present. POC needed by 02/12/19. Physical Therapy Plan Frequency and Duration Frequency of Treatment 2x/Week Duration of Treatment 2 month Plan of Care Start Date 12/24/18 Plan of Care End Date 02/12/19 Next Visit Focus/Plan Next Note Type Treatment Note Next Visit Plan Assess goals due to POC in 1-2 visits by 02/12/19. Assess right pec minor length and response to Iontophoresis. Start with ex, stretch tendon, gliding, US, K-tape or iontophoresis.
--- NOTE | 2019-02-08 12:40 | PT.OTN ---
Current Diagnoses Pain in right wrist (02/08/19) Physical Therapy Treatment Note PT-OP-A Visit Information Start: 12/22/18 14:35 Freq: Status: Active Protocol: Document 02/08/19 09:02 LRN (Rec: 02/08/19 09:49 LRN [id number]) Out-Patient Physical Therapy Visit Information Visit Information Visit Type Treatment Note Visit Note New POC needed 02/12/19. Visit Start Time 09:02 Visit Stop Time 09:49 Total Visit Minutes 47 Visit Number 12 Number of WEATHERIZATION DIRECTOR Visits 0 Evaluation Information Evaluation Date 12/24/18 PT-OP-B Current Condition Start: 12/22/18 14:35 Freq: Status: Active Protocol: Document 12/24/18 10:34 LRN (Rec: 12/24/18 10:56 LRN [id number]) Current Condition History of Current Condition Onset Date 04/2010 Current Complaints Pain in the R wrist present with activity History of Current Condition In April of 2010, while at work at , a nurse and her were getting a pt out of bed and was trying to lift a tubing alongside the bed when her R hand came up, hitting her wrist on the bed rail. After her shift was over she went to the ER to have her wrist checked for fear something was broken. She was found to have no broken bone but possible nerve damage, and was told [address] Zendejas that she could have tendinitis or carpel tunnel in the future. With time she improved until an insidious onset of R medial wrist pain started in Jul 2018. 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 Currently, she has stiffness first in AM, and every time she uses her hand she has shooting pain from R lateral thumb MCP jt to mid lateral forearm. The pt is R handed. Prior Treatments and Tests Pt reports X-ray of 10/2018 showed no broken bones. Future Testing and Treatments Planned None Treatment Goals Patient/Caregiver Goals Eliminate the pain completely. Prior Functional Status Baseline Function- ADL's Independent Baseline Function- Mobility Independent Baseline Function- Work/School No pain Baseline Function- Other personal caregiver, no pain. Current Functional Impairments (Reported) Functional Limitations- ADL's Limited with any use of R hand Functional Limitations- Work/School Still able to work. Intermittently dull pain comes on when typing on the keyboard (mid shift). Personal Factors Other Personal Factors That May Effect 2 daughters ages 2 and 6. Therapy/Recovery Occasional headaches. History of Depression. PT-OP-C Subjective Start: 12/22/18 14:35 Freq: Status: Active Protocol: Document 02/08/19 09:02 LRN (Rec: 02/08/19 09:49 LRN [id number]) OP-PT Subjective Patient Comments Patient Comments States yesterday her hand felt pretty good at work all day and had pain that night. She wore her brace to work. PT-OP-F Manual Assessment Start: 12/22/18 14:35 Freq: Status: Active Protocol: Document 12/24/18 10:34 LRN (Rec: 12/24/18 15:06 LRN [id number]) Manual Assessments Soft Tissue Assessment Soft Tissue Mobility Assessment Swelling present in the R wrist laterally. Joint Mobility Assessment Joint Mobility Assessment Joint mobility of R carpal bones was normal. PT-OP-H Neuro Start: 12/22/18 14:35 Freq: Status: Active Protocol: Document 12/24/18 10:34 LRN (Rec: 12/24/18 15:06 LRN [id number]) Sensation Evaluation Gross Sensation Sensation Description Paresthesia Dermatome Impairments C6 T1 Comments Summary Comments Tingling was present in the R thumb and index finger with touch. PT-OP-J Posture/Palpation/Skin Start: 12/22/18 14:35 Freq: Status: Active Protocol: Document 12/24/18 10:34 LRN (Rec: 12/24/18 15:06 LRN [id number]) Palpation Assessment Location R thumb Palpation Location Abductor and extensor tendon Palpation Findings Edema Tenderness PT-OP-K Range of Motion Start: 12/22/18 14:35 Freq: Status: Active Protocol: Document 12/24/18 10:34 LRN (Rec: 12/24/18 15:06 LRN [id number]) Elbow/Forearm Range of Motion Elbow/Forearm Measured in Degrees Right Active Elbow/Forearm ROM WFL Yes ROM Testing Position Sitting Left Active Elbow/Forearm ROM WFL Yes ROM Testing Position Sitting Wrist Goniometric Range of Motion ROM Limitations Wrist Limitations of Range of Motion Pain Comments R Wrist flex is decreased. Thumb Goniometric Range of Motion Thumb Measured in Degrees Left CMC Extension Active (degrees) 50 Right CMC Extension Active (degrees) 35 Thumb ROM Limitations Thumb Range of Motion Limitations Pain Comments CMC Thumb ABD: 43 deg's right , 65 deg's left. PT-OP-L Special Tests Start: 12/22/18 14:35 Freq: Status: Active Protocol: Document 01/25/19 09:49 LRN (Rec: 01/25/19 16:04 LRN [id number]) Special Tests Cervical Spine Special Tests Upper Limb Tension Test Test Results Positive Foraminal Compression Test Results Negative PT-OP-M Strength Start: 12/22/18 14:35 Freq: Status: Active Protocol: Document 12/24/18 10:34 LRN (Rec: 12/24/18 15:06 LRN [id number]) Elbow/Forearm Strength Elbow and Forearm Manual Muscle Testing Right Comments Strength - WNL Wrist Strength Wrist Manual Muscle Testing Left Reason Not Measured WFL Right Flexion (C7) 4+ Good+ Extension (C6) 4 Good Ulnar Deviation 5 Normal Radial Deviation 5 Normal Comments R wrist flexion/extension: Sharp pain present with testing. Finger/Thumb Strength Finger Manual Muscle Testing Right Thumb Extension (thumb C8) 3+ Fair+ Adduction 5 Normal Abduction (fingers T1) 5 Normal Hand Lubrication Technician/Pinch Strength Hand Dominance Hand Dominance Right Hand Strength Left Lubrication Technician (lbs) 21 Comments 3 Trails: 29#, 28#, 26# Right Lubrication Technician (lbs) 19 Comments 3 Trials: 20#, 19#, 20# (avg is 19.7#) PT-OP-Q Treatments Start: 12/22/18 14:35 Freq: Status: Active Protocol: Document 02/08/19 09:02 LRN (Rec: 02/08/19 09:49 LRN [id number]) Therapeutic Exercises Sitting Exercises 7 Sitting Exercise Name tendon gliding for de Quervains tendonitis Reps/Minutes x 10 reps Comments end with 30 second stretch 5 Sitting Exercise Name supination/pronation stretch during Ultasound 2 Sitting Exercise Name Wrist deviations Side right Manual Therapy Treatment Soft Tissue Mobilization 2 Body Location manual STM/MFR of the forearm on the radial side of the wrist Mobilization Type Strumming Trigger Point Release Comments Gentle manual stretching of the thumb adductor tendon and manual tendon glides 1 Body Location R thumb AD, AB, ext muscle bellies Mobilization Type Cross-Friction PT-OP-R Modalities Start: 12/22/18 14:35 Freq: Status: Active Protocol: Document 02/08/19 09:02 LRN (Rec: 02/08/19 09:49 LRN [id number]) Iontophoresis Treatment R wrist Treatment Medication Dexamethasone (-) Treatment Polarity Negative to Negative Patient Tolerance Excellent Ultrasound Therapy Treatment Right Posterior Lateral Wrist Treatment Duration (minutes) 8 Patient Position Sitting Coupling Medium Ultrasound Gel Applicator Size (cm2) 2 Frequency Setting (mHz) 1 Mode Setting Pulsed Duty Cycle 50% Intensity Setting (w/cm2) 1.5 Comments Ultrasound to R thumb Adductor muscle anterior & posterior. PT-OP-T Assessment and Plan Start: 12/22/18 14:35 Freq: Status: Active Protocol: Document 02/08/19 09:02 LRN (Rec: 02/08/19 09:49 LRN [id number]) Physical Therapy Assessment Assessment Summary Assessment +response to Iontophoresis with one day at work without pain wearing wrist splint. Pec Minor tightness. Pt is tender at the radial head, snuf box, and with thumb extension. Muscle tightness of thumb AD. Active trP's at thumb extensor/AB muscle. Physical Therapy Plan Frequency and Duration Frequency of Treatment 2x/Week Duration of Treatment 2 month Plan of Care Start Date 12/24/18 Plan of Care End Date 02/12/19 Next Visit Focus/Plan Next Note Type Progress Note Next Visit Plan Assess goals due to POC needed by 02/12/19, then cont manual therapy, US, stretch, Iontophoresis. Issue HEP: pec minor stretch. .
--- NOTE | 2019-02-12 15:59 | PT.OTN ---
Current Diagnoses Pain in right wrist (02/12/19) Physical Therapy Treatment Note PT-OP-A Visit Information Start: 12/22/18 14:35 Freq: Status: Active Protocol: Document 02/12/19 09:54 LRN (Rec: 02/12/19 10:46 LRN [id number]) Out-Patient Physical Therapy Visit Information Visit Information Visit Type Progress Note Visit Start Time 09:54 Visit Stop Time 10:43 Total Visit Minutes 49 Visit Number 13 Number of PRECAST CONCRETE IRONWORKER Visits 0 Evaluation Information Evaluation Date 12/24/18 PT-OP-B Current Condition Start: 12/22/18 14:35 Freq: Status: Active Protocol: Document 12/24/18 10:34 LRN (Rec: 12/24/18 10:56 LRN [id number]) Current Condition History of Current Condition Onset Date 04/2010 Current Complaints Pain in the R wrist present with activity History of Current Condition In April of 2010, while at work at [employer], a nurse and her were getting a pt out of bed and was trying to lift a tubing alongside the bed when her R hand came up, hitting her wrist on the bed rail. After her shift was over she went to the ER to have her wrist checked for fear something was broken. She was found to have no broken bone but possible nerve damage, and was told [address] Zendejas that she could have tendinitis or carpel tunnel in the future. With time she improved until an insidious onset of R medial wrist pain started in Jul 2018. 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 Currently, she has stiffness first in AM, and every time she uses her hand she has shooting pain from R lateral thumb MCP jt to mid lateral forearm. The pt is R handed. Prior Treatments and Tests Pt reports X-ray of 10/2018 showed no broken bones. Future Testing and Treatments Planned None Treatment Goals Patient/Caregiver Goals Eliminate the pain completely. Prior Functional Status Baseline Function- ADL's Independent Baseline Function- Mobility Independent Baseline Function- Work/School No pain Baseline Function- Other senior caregiver, no pain. Current Functional Impairments (Reported) Functional Limitations- ADL's Limited with any use of R hand Functional Limitations- Work/School Still able to work. Intermittently dull pain comes on when typing on the keyboard (mid shift). Personal Factors Other Personal Factors That May Effect 2 daughters ages 2 and 6. Therapy/Recovery Occasional headaches. History of Depression. PT-OP-C Subjective Start: 12/22/18 14:35 Freq: Status: Active Protocol: Document 02/08/19 09:02 LRN (Rec: 02/08/19 09:49 LRN [id number]) OP-PT Subjective Patient Comments Patient Comments States yesterday her hand felt pretty good at work all day and had pain that night. She wore her brace to work. PT-OP-F Manual Assessment Start: 12/22/18 14:35 Freq: Status: Active Protocol: Document 12/24/18 10:34 LRN (Rec: 12/24/18 15:06 LRN [id number]) Manual Assessments Soft Tissue Assessment Soft Tissue Mobility Assessment Swelling present in the R wrist laterally. Joint Mobility Assessment Joint Mobility Assessment Joint mobility of R carpal bones was normal. PT-OP-H Neuro Start: 12/22/18 14:35 Freq: Status: Active Protocol: Document 12/24/18 10:34 LRN (Rec: 12/24/18 15:06 LRN [id number]) Sensation Evaluation Gross Sensation Sensation Description Paresthesia Dermatome Impairments C6 T1 Comments Summary Comments Tingling was present in the R thumb and index finger with touch. PT-OP-J Posture/Palpation/Skin Start: 12/22/18 14:35 Freq: Status: Active Protocol: Document 12/24/18 10:34 LRN (Rec: 12/24/18 15:06 LRN [id number]) Palpation Assessment Location R thumb Palpation Location Abductor and extensor tendon Palpation Findings Edema Tenderness PT-OP-K Range of Motion Start: 12/22/18 14:35 Freq: Status: Active Protocol: Document 02/12/19 09:54 LRN (Rec: 02/12/19 15:12 LRN [id number]) Wrist Goniometric Range of Motion Wrist Measured in Degrees Right Flexion Active (degrees) 85 Flexion Passive (degrees) 90 Extension Active (degrees) 70 Extension Passive (degrees) 80 Ulnar Deviation Active (degrees) 40 Radial Deviation Active (degrees) 20 ROM Limitations Wrist Limitations of Range of Motion Pain Comments R Wrist active & passive ext is decreased. Thumb Goniometric Range of Motion Thumb Measured in Degrees Left MCP Flexion Active (degrees) 50 CMC Extension Active (degrees) 50 Right MCP Flexion Active (degrees) 35 CMC Extension Active (degrees) 40 Thumb ROM Limitations Thumb Range of Motion Limitations Pain Comments CMC Thumb ABD: 70 deg's right , 75 deg's left. PT-OP-L Special Tests Start: 12/22/18 14:35 Freq: Status: Active Protocol: Document 01/25/19 09:49 LRN (Rec: 01/25/19 16:04 LRN [id number]) Special Tests Cervical Spine Special Tests Upper Limb Tension Test Test Results Positive Foraminal Compression Test Results Negative PT-OP-M Strength Start: 12/22/18 14:35 Freq: Status: Active Protocol: Document 02/12/19 09:54 LRN (Rec: 02/12/19 15:15 LRN [id number]) Hand Lard Maker/Pinch Strength Hand Strength Left Lard Maker (lbs) 21 Comments 3 Trails: 29#, 28#, 26# Right Lard Maker (lbs) 17 Comments 3 Trials: 18#, 16#, 16# (avg is 16.67#) PT-OP-Q Treatments Start: 12/22/18 14:35 Freq: Status: Active Protocol: Document 02/12/19 09:54 LRN (Rec: 02/12/19 10:46 LRN [id number]) Therapeutic Exercises Sitting Exercises 7 Sitting Exercise Name tendon gliding for de Quervains tendonitis Reps/Minutes x 10 reps Comments end with 30 second stretch 6 Sitting Exercise Name soft paraffin wax: thumb flexion/extension Reps/Minutes x 10 reps Comments ROM measured 5 Sitting Exercise Name supination/pronation stretch during Ultasound Resistance 1# Reps/Minutes 15x2 Comments ROM measurements taken 2 Sitting Exercise Name Wrist deviations Side right Resistance 1# Reps/Minutes 15 reps x 2 Comments ROM measurements taken 1 Sitting Exercise Name wrist flexor and extensor stretch & ex Resistance 1# Reps/Minutes 15 reps x 2 Comments ROM measurements taken Manual Therapy Treatment Soft Tissue Mobilization 2 Body Location manual STM/MFR of the forearm on the radial side of the wrist Mobilization Type Strumming Trigger Point Release Comments Manual stretching of the thumb adductor pollicis muscle, thumb extensors pollicis brevis and longus 1 Body Location R thumb CMC joint and extensor /abductor tendons Mobilization Type Cross-Friction PT-OP-R Modalities Start: 12/22/18 14:35 Freq: Status: Active Protocol: Document 02/12/19 09:54 LRN (Rec: 02/12/19 10:46 LRN [id number]) Iontophoresis Treatment R wrist Treatment Medication Dexamethasone (-) Treatment Polarity Negative to Negative Patient Tolerance Excellent Paraffin Bath Treatment Right Hand Treatment Technique Dip-immersion to R thumb medial forearm, dorsal side Duration (minutes) 6 Patient Tolerance Good PT-OP-T Assessment and Plan Start: 12/22/18 14:35 Freq: Status: Active Protocol: Document 02/12/19 09:54 LRN (Rec: 02/12/19 10:46 LRN [id number]) Physical Therapy Assessment Rehab Potential Rehabilitation Potential Good Evaluation Complexity Number of Personal Factors/Comorbidities 1-2 Number of Body Systems Impaired 4 or More Clinical Presentation at Evaluation Evolving Impairments Impairments Activity Tolerance Edema Functional Activities Functional Mobility Pain ROM Sensation Soft Tissue Mobility Strength Goals Function Impairment Intermittent sharp pain at work (part-time) Snf Goal (LTG) Pt will be able to work a full shift without onset of R wrist pain. 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 Economic Development Specialist Goal (LTG) Pt will demonstrate shop worker strength 30-33 kg's (normal for ages 35-39 year olds). LTG Duration 02/19/19 (02/12/19: Worse) ROM Impairment Decreased R wrist mobility with +Finklestein's Test Snf Goal (LTG) Pt will be able to demonstrate normal active R thumb and wrist mobility without pain. LTG Duration 02/05/19 (02/12/19: Improved) Pain Impairment Pain rated 8/10 with activity use Short Term Goal (STG) Pt will show 50% improvement with pain intermittent with use. STG Duration 01/21/19 Snf Goal (LTG) Pt will be painfree with activities at work in the R medial wrist. LTG Duration 02/19/19 Self Care Impairment Pt lacks self care HEP Economic Development Specialist Goal (LTG) Pt will be independent with a self care HEP. LTG Duration 02/19/19 Progress Towards Goals Progress Towards Goals Slow Progress - Other Assessment Summary Assessment +response to Iontophoresis with a day at work without pain wearing wrist splint and another day without pain. She has muscle tightness of the R UE, including Pec Minor and thumb flexor pollcis tightness , and tenderness at the radial head, snuf box, and with thumb extension. She has active trP's at thumb extensor /AB muscle. Overall thumb mobility is improved, but shop worker strength is worse. Progress is slow probably due to the usage of her hand as a mother of 2 young children. She has been able to work without pain once thus far. The pt would like to continue physical therapy at this time because she appears to be making some improvements in functional use of her R hand without pain ( at times), but will seek further medical evaluation for possibly a quicker resolution to her pain. I am hopeful that with therapy she can make further gains in reducing her pain until she can be reevaluated for other options of care. Physical Therapy Plan Frequency and Duration Frequency of Treatment 2x/Week Duration of Treatment 2 month Plan of Care Start Date 02/12/19 Plan of Care End Date 03/19/19 Therapeutic Interventions Therapeutic Interventions Coordination Training Home Exercise Program Joint Mobilizations Manual Therapy Patient/Caregiver Education Self-Care/Home Management Soft Tissue Mobilization Taping Therapeutic Exercises Modalities Cold Pack/Ice Massage Hot Packs Infrared Therapy Iontophoresis Paraffin Bath Traction- Mechanical Ultrasound Other Referrals/Consults Referrals/Consults Recommended Pt is interested in learing of other possible options (use of cortisone injection) to quickly eliminate her wrist pain. Next Visit Focus/Plan Next Note Type Progress Note Next Visit Plan Cont manual therapy, therapeutic ex stabilization of the thumb, US, stretch, Iontophoresis. Other possible use of paraffin dip, K-tape and self care contrast baths. Next visit issue HEP: pec minor stretch.
--- NOTE | 2019-02-12 15:59 | PT.OPPOC ---
Current Diagnoses Pain in right wrist (02/12/19) Provider Visit Care Team Role Provider Type Denton Nazario MD Attending Provider Physician Family Provider Primary Care Provider Specialty: Family Practice Address: [address] [place] [address], [id number] Email: [email or web address] Plan Of Care PT-OP-T Assessment and Plan Start: 12/22/18 14:35 Freq: Status: Active Protocol: Document 02/12/19 09:54 LRN (Rec: 02/12/19 10:46 LRN [id number]) Physical Therapy Assessment Rehab Potential Rehabilitation Potential Good Evaluation Complexity Number of Personal Factors/Comorbidities 1-2 Number of Body Systems Impaired 4 or More Clinical Presentation at Evaluation Evolving Impairments Impairments Activity Tolerance Edema Functional Activities Functional Mobility Pain ROM Sensation Soft Tissue Mobility Strength Goals Function Impairment Intermittent sharp pain at work (part-time) Shelter Goal (LTG) Pt will be able to work a full shift without onset of R wrist pain. 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 Shelter Goal (LTG) Pt will demonstrate district fire management officer strength 30-33 kg's (normal for ages 35-39 year olds). LTG Duration 02/19/19 (02/12/19: Worse) ROM Impairment Decreased R wrist mobility with +Finklestein's Test Shelter Goal (LTG) Pt will be able to demonstrate normal active R thumb and wrist mobility without pain. LTG Duration 02/05/19 (02/12/19: Improved) Pain Impairment Pain rated 8/10 with activity use Short Term Goal (STG) Pt will show 50% improvement with pain intermittent with use. STG Duration 01/21/19 Shelter Goal (LTG) Pt will be painfree with activities at work in the R medial wrist. LTG Duration 02/19/19 Self Care Impairment Pt lacks self care HEP Pipe Insulator Helper Goal (LTG) Pt will be independent with a self care HEP. LTG Duration 02/19/19 Progress Towards Goals Progress Towards Goals Slow Progress - Other Assessment Summary Assessment +response to Iontophoresis with a day at work without pain wearing wrist splint and another day without pain. She has muscle tightness of the R UE, including Pec Minor and thumb flexor pollcis tightness , and tenderness at the radial head, snuf box, and with thumb extension. She has active trP's at thumb extensor /AB muscle. Overall thumb mobility is improved, but district fire management officer strength is worse. Progress is slow probably due to the usage of her hand as a mother of 2 young children. She has been able to work without pain once thus far. The pt would like to continue physical therapy at this time because she appears to be making some improvements in functional use of her R hand without pain ( at times), but will seek further medical evaluation for possibly a quicker resolution to her pain. I am hopeful that with therapy she can make further gains in reducing her pain until she can be reevaluated for other options of care. Physical Therapy Plan Frequency and Duration Frequency of Treatment 2x/Week Duration of Treatment 2 month Plan of Care Start Date 02/12/19 Plan of Care End Date 03/19/19 Therapeutic Interventions Therapeutic Interventions Coordination Training Home Exercise Program Joint Mobilizations Manual Therapy Patient/Caregiver Education Self-Care/Home Management Soft Tissue Mobilization Taping Therapeutic Exercises Modalities Cold Pack/Ice Massage Hot Packs Infrared Therapy Iontophoresis Paraffin Bath Traction- Mechanical Ultrasound Other Referrals/Consults Referrals/Consults Recommended Pt is interested in learing of other possible options (use of cortisone injection) to quickly eliminate her wrist pain. Next Visit Focus/Plan Next Note Type Progress Note Next Visit Plan Cont manual therapy, therapeutic ex stabilization of the thumb, US, stretch, Iontophoresis. Other possible use of paraffin dip, K-tape and self care contrast baths. Next visit issue HEP: pec minor stretch. Plan of Care Dates Plan of Care Start Date 02/12/19 Plan of Care End Date 03/19/19 Please Sign and Return: I have reviewed this Plan of Care and certify that the skilled therapy services above are required to meet the patient?s needs. Physician Signature Date Printed Name and Credentials Clinical Instructor Signature Printed Name and Credentials
--- NOTE | 2019-02-15 16:10 | PT.OTN ---
Current Diagnoses Pain in right wrist (02/15/19) Physical Therapy Treatment Note PT-OP-A Visit Information Start: 12/22/18 14:35 Freq: Status: Active Protocol: Document 02/15/19 08:18 LRN (Rec: 02/15/19 09:06 LRN [id number]) Out-Patient Physical Therapy Visit Information Visit Information Visit Type Treatment Note Visit Start Time 08:18 Visit Stop Time 09:00 Total Visit Minutes 42 Visit Number 14 Number of SERGEANT OF OFFICERS Visits 0 Evaluation Information Evaluation Date 12/24/18 PT-OP-B Current Condition Start: 12/22/18 14:35 Freq: Status: Active Protocol: Document 12/24/18 10:34 LRN (Rec: 12/24/18 10:56 LRN [id number]) Current Condition History of Current Condition Onset Date 04/2010 Current Complaints Pain in the R wrist present with activity History of Current Condition In April of 2010, while at work at [employer], a nurse and her were getting a pt out of bed and was trying to lift a tubing alongside the bed when her R hand came up, hitting her wrist on the bed rail. After her shift was over she went to the ER to have her wrist checked for fear something was broken. She was found to have no broken bone but possible nerve damage, and was told [address] Zendejas that she could have tendinitis or carpel tunnel in the future. With time she improved until an insidious onset of R medial wrist pain started in Jul 2018. 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. Currently, she has stiffness first in AM, and every time she uses her hand she has shooting pain from R lateral thumb MCP jt to mid lateral forearm. The pt is R handed. Prior Treatments and Tests Pt reports X-ray of 10/2018 showed no broken bones. Future Testing and Treatments Planned None Treatment Goals Patient/Caregiver Goals Eliminate the pain completely. 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 Current Functional Impairments (Reported) Functional Limitations- ADL's Limited with any use of R hand Functional Limitations- Work/School Still able to work. Intermittently dull pain comes on when typing on the keyboard (mid shift). Personal Factors Other Personal Factors That May Effect 2 daughters ages 2 and 6. Therapy/Recovery Occasional headaches. History of Depression. PT-OP-C Subjective Start: 12/22/18 14:35 Freq: Status: Active Protocol: Document 02/15/19 08:18 LRN (Rec: 02/15/19 08:59 LRN [id number]) OP-PT Subjective Patient Comments Patient Comments About the same. Patient Reported Progress Same PT-OP-F Manual Assessment Start: 12/22/18 14:35 Freq: Status: Active Protocol: Document 12/24/18 10:34 LRN (Rec: 12/24/18 15:06 LRN [id number]) Manual Assessments Soft Tissue Assessment Soft Tissue Mobility Assessment Swelling present in the R wrist laterally. Joint Mobility Assessment Joint Mobility Assessment Joint mobility of R carpal bones was normal. PT-OP-H Neuro Start: 12/22/18 14:35 Freq: Status: Active Protocol: Document 12/24/18 10:34 LRN (Rec: 12/24/18 15:06 LRN [id number]) Sensation Evaluation Gross Sensation Sensation Description Paresthesia Dermatome Impairments C6 T1 Comments Summary Comments Tingling was present in the R thumb and index finger with touch. PT-OP-J Posture/Palpation/Skin Start: 12/22/18 14:35 Freq: Status: Active Protocol: Document 12/24/18 10:34 LRN (Rec: 12/24/18 15:06 LRN [id number]) Palpation Assessment Location R thumb Palpation Location Abductor and extensor tendon Palpation Findings Edema Tenderness PT-OP-K Range of Motion Start: 12/22/18 14:35 Freq: Status: Active Protocol: Document 02/12/19 09:54 LRN (Rec: 02/12/19 15:12 LRN [id number]) Wrist Goniometric Range of Motion Wrist Measured in Degrees Right Flexion Active (degrees) 85 Flexion Passive (degrees) 90 Extension Active (degrees) 70 Extension Passive (degrees) 80 Ulnar Deviation Active (degrees) 40 Radial Deviation Active (degrees) 20 ROM Limitations Wrist Limitations of Range of Motion Pain Comments R Wrist active & passive ext is decreased. Thumb Goniometric Range of Motion Thumb Measured in Degrees Left MCP Flexion Active (degrees) 50 CMC Extension Active (degrees) 50 Right MCP Flexion Active (degrees) 35 CMC Extension Active (degrees) 40 Thumb ROM Limitations Thumb Range of Motion Limitations Pain Comments CMC Thumb ABD: 70 deg's right , 75 deg's left. PT-OP-L Special Tests Start: 12/22/18 14:35 Freq: Status: Active Protocol: Document 01/25/19 09:49 LRN (Rec: 01/25/19 16:04 LRN [id number]) Special Tests Cervical Spine Special Tests Upper Limb Tension Test Test Results Positive Foraminal Compression Test Results Negative PT-OP-M Strength Start: 12/22/18 14:35 Freq: Status: Active Protocol: Document 02/12/19 09:54 LRN (Rec: 02/12/19 15:15 LRN [id number]) Hand Core Assembly Supervisor/Pinch Strength Hand Strength Left Core Assembly Supervisor (lbs) 21 Comments 3 Trails: 29#, 28#, 26# Right Core Assembly Supervisor (lbs) 17 Comments 3 Trials: 18#, 16#, 16# (avg is 16.67#) PT-OP-Q Treatments Start: 12/22/18 14:35 Freq: Status: Active Protocol: Document 02/15/19 08:18 LRN (Rec: 02/15/19 09:08 LRN [id number]) Therapeutic Exercises Sitting Exercises 7 Sitting Exercise Name tendon gliding for de Quervains tendonitis Reps/Minutes x 10 reps Comments end with 30 second stretch 6 Sitting Exercise Name soft paraffin wax: thumb flexion/extension Reps/Minutes x 10 reps Comments ROM measured 5 Sitting Exercise Name supination/pronation stretch during Ultasound Resistance 1# Reps/Minutes 15x2 Comments ROM measurements taken 2 Sitting Exercise Name Wrist deviations Side right Resistance 1# Reps/Minutes 15 reps x 2 Comments ROM measurements taken 1 Sitting Exercise Name wrist flexor and extensor stretch & ex Resistance 1# Reps/Minutes 15 reps x 2 Comments ROM measurements taken PT-OP-R Modalities Start: 12/22/18 14:35 Freq: Status: Active Protocol: Document 02/15/19 08:18 LRN (Rec: 02/15/19 08:59 LRN [id number]) Iontophoresis Treatment R wrist Treatment Medication Dexamethasone (-) Treatment Polarity Negative to Negative Patient Tolerance Excellent Paraffin Bath Treatment Right Hand Treatment Technique Dip-immersion Duration (minutes) 6 Patient Tolerance Good Ultrasound Therapy Treatment Right Posterior Lateral Wrist Treatment Duration (minutes) 8 Patient Position Sitting Coupling Medium Ultrasound Gel Applicator Size (cm2) 2 Frequency Setting (mHz) 1 Mode Setting Pulsed Duty Cycle 50% Intensity Setting (w/cm2) 1.5 Comments Ultrasound to R thumb Adductor muscle anterior & posterior. PT-OP-T Assessment and Plan Start: 12/22/18 14:35 Freq: Status: Active Protocol: Document 02/15/19 08:18 LRN (Rec: 02/15/19 08:59 LRN [id number]) Physical Therapy Assessment Progress Towards Goals Progress Comments No change from last session. Assessment Summary Assessment +response to Iontophoresis with a day without pain. She has muscle tightness of the R UE, including Pec Minor and thumb flexor pollcis tightness , and tenderness at the radial head, snuf box, and with thumb extension. Progress is slow probably due to the usage of her hand as a mother of 2 young children. The pt has been not wearing her wrist splint at times; therefore I am hopeful that with therapy she can make further gains in reducing her pain until she can be reevaluated for other options of care. Physical Therapy Plan Frequency and Duration Frequency of Treatment 2x/Week Duration of Treatment 2 month Plan of Care Start Date 02/12/19 Plan of Care End Date 03/19/19 Next Visit Focus/Plan Next Note Type Progress Note Next Visit Plan Next visit issue HEP: pec minor stretch. Start therapeutic ex stabilization of the thumb, f/b manual therapy, exercise strengthening, US or paraffin, stretch, Iontophoresis. Other possible use of paraffin dip, K-tape and self care contrast baths. She will seek further medical evaluation for possibly a quicker resolution to her pain.
--- NOTE | 2019-02-19 08:17 | PT.OTN ---
Current Diagnoses Pain in right wrist (02/22/19) Physical Therapy Treatment Note PT-OP-A Visit Information Start: 12/22/18 14:35 Freq: Status: Active Protocol: Document 02/19/19 08:17 LRN (Rec: 02/19/19 09:14 LRN [id number]) Out-Patient Physical Therapy Visit Information Visit Information Visit Type Treatment Note Visit Note New POC expires 03/19/19 Visit Start Time 08:17 Visit Stop Time 09:07 Total Visit Minutes 50 Visit Number 15 Number of FIXER BOARDING ROOM Visits 0 Evaluation Information Evaluation Date 12/24/18 PT-OP-B Current Condition Start: 12/22/18 14:35 Freq: Status: Active Protocol: Document 12/24/18 10:34 LRN (Rec: 12/24/18 10:56 LRN [id number]) Current Condition History of Current Condition Onset Date 04/2010 Current Complaints Pain in the R wrist present with activity History of Current Condition In April of 2010, while at work at [facility], a nurse and her were getting a pt out of bed and was trying to lift a tubing alongside the bed when her R hand came up, hitting her wrist on the bed rail. After her shift was over she went to the ER to have her wrist checked for fear something was broken. She was found to have no broken bone but possible nerve damage, and was told [address] Zendejas that she could have tendinitis or carpel tunnel in the future. With time she improved until an insidious onset of R medial wrist pain started in Jul 2018. 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 Currently, she has stiffness first in AM, and every time she uses her hand she has shooting pain from R lateral thumb MCP jt to mid lateral forearm. The pt is R handed. Prior Treatments and Tests Pt reports X-ray of 10/2018 showed no broken bones. Future Testing and Treatments Planned None Treatment Goals Patient/Caregiver Goals Eliminate the pain completely. 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 Current Functional Impairments (Reported) Functional Limitations- ADL's Limited with any use of R hand Functional Limitations- Work/School Still able to work. Intermittently dull pain comes on when typing on the keyboard (mid shift). Personal Factors Other Personal Factors That May Effect 2 daughters ages 2 and 6. Therapy/Recovery Occasional headaches. History of Depression. PT-OP-C Subjective Start: 12/22/18 14:35 Freq: Status: Active Protocol: Document 02/19/19 08:17 LRN (Rec: 02/19/19 09:14 LRN [id number]) OP-PT Subjective Patient Comments Patient Comments 1 day without pain, did ex's and the the next day hurt again. Use of heat helped with the pain. PT-OP-F Manual Assessment Start: 12/22/18 14:35 Freq: Status: Active Protocol: Document 12/24/18 10:34 LRN (Rec: 12/24/18 15:06 LRN [id number]) Manual Assessments Soft Tissue Assessment Soft Tissue Mobility Assessment Swelling present in the R wrist laterally. Joint Mobility Assessment Joint Mobility Assessment Joint mobility of R carpal bones was normal. PT-OP-H Neuro Start: 12/22/18 14:35 Freq: Status: Active Protocol: Document 12/24/18 10:34 LRN (Rec: 12/24/18 15:06 LRN [id number]) Sensation Evaluation Gross Sensation Sensation Description Paresthesia Dermatome Impairments C6 T1 Comments Summary Comments Tingling was present in the R thumb and index finger with touch. PT-OP-J Posture/Palpation/Skin Start: 12/22/18 14:35 Freq: Status: Active Protocol: Document 12/24/18 10:34 LRN (Rec: 12/24/18 15:06 LRN [id number]) Palpation Assessment Location R thumb Palpation Location Abductor and extensor tendon Palpation Findings Edema Tenderness PT-OP-K Range of Motion Start: 12/22/18 14:35 Freq: Status: Active Protocol: Document 02/12/19 09:54 LRN (Rec: 02/12/19 15:12 LRN [id number]) Wrist Goniometric Range of Motion Wrist Measured in Degrees Right Flexion Active (degrees) 85 Flexion Passive (degrees) 90 Extension Active (degrees) 70 Extension Passive (degrees) 80 Ulnar Deviation Active (degrees) 40 Radial Deviation Active (degrees) 20 ROM Limitations Wrist Limitations of Range of Motion Pain Comments R Wrist active & passive ext is decreased. Thumb Goniometric Range of Motion Thumb Measured in Degrees Left MCP Flexion Active (degrees) 50 CMC Extension Active (degrees) 50 Right MCP Flexion Active (degrees) 35 CMC Extension Active (degrees) 40 Thumb ROM Limitations Thumb Range of Motion Limitations Pain Comments CMC Thumb ABD: 70 deg's right , 75 deg's left. PT-OP-L Special Tests Start: 12/22/18 14:35 Freq: Status: Active Protocol: Document 01/25/19 09:49 LRN (Rec: 01/25/19 16:04 LRN [id number]) Special Tests Cervical Spine Special Tests Upper Limb Tension Test Test Results Positive Foraminal Compression Test Results Negative PT-OP-M Strength Start: 12/22/18 14:35 Freq: Status: Active Protocol: Document 02/12/19 09:54 LRN (Rec: 02/12/19 15:15 LRN [id number]) Hand Satellite Communications Engineer/Pinch Strength Hand Strength Left Satellite Communications Engineer (lbs) 21 Comments 3 Trails: 29#, 28#, 26# Right Satellite Communications Engineer (lbs) 17 Comments 3 Trials: 18#, 16#, 16# (avg is 16.67#) PT-OP-Q Treatments Start: 12/22/18 14:35 Freq: Status: Active Protocol: Document 02/19/19 08:17 LRN (Rec: 02/19/19 09:14 LRN [id number]) Therapeutic Exercises Sitting Exercises Tricep press Side right Equipment Used 3# Comments 10 x 2 Elbow Curl Side right Resistance 3# Reps/Minutes 10 x 2 7 Sitting Exercise Name tendon gliding for de Quervains tendonitis Reps/Minutes x 10 reps Comments end with 30 second stretch 6 Sitting Exercise Name soft paraffin wax: thumb flexion/extension Reps/Minutes x 10 reps Comments ROM measured 5 Sitting Exercise Name supination/pronation stretch during Ultasound Resistance 1# Reps/Minutes 15x2 Comments ROM measurements taken Self-Care/Home Management Treatment Education Patient Education Home Exercise Program Activities Self-Care/Home Management Activities HEP issued and reviewed: Scalene stretches, UE neural glides (radial, median w/wrist in pron, added sup and neutral position). PT-OP-R Modalities Start: 12/22/18 14:35 Freq: Status: Active Protocol: Document 02/19/19 08:17 LRN (Rec: 02/19/19 09:14 LRN [id number]) Iontophoresis Treatment R wrist Treatment Medication Dexamethasone (-) Treatment Polarity Negative to Negative Patient Tolerance Excellent Comment Treatment Comment Ionto patch pre-prepared Paraffin Bath Treatment Right Hand Treatment Technique Dip-immersion Duration (minutes) 5 Patient Tolerance Good Comment Treatment Comment Set up for post dipping pre- prepared PT-OP-T Assessment and Plan Start: 12/22/18 14:35 Freq: Status: Active Protocol: Document 02/19/19 08:17 LRN (Rec: 02/19/19 09:14 LRN [id number]) Physical Therapy Assessment Assessment Summary Assessment Improved thumb flexor pollcis mobility before & after paraffin dip (mild stretch motion with thumb tucked without pain). Tenderness at the radial head, snuf box is present, but eliminated with TrP treatment. Pt able to do isometric thumb extension with light resistance below and above MCP jt without pain. Progress is slow as expected. Physical Therapy Plan Frequency and Duration Frequency of Treatment 2x/Week Duration of Treatment 2 month Plan of Care Start Date 02/12/19 Plan of Care End Date 03/19/19 Other Referrals/Consults Referrals/Consults Recommended Pt is interested in learning of other possible options (use of cortisone injection) to quickly eliminate her wrist pain. Next Visit Focus/Plan Next Note Type Treatment Note Next Visit Plan Remind pt to do contrast baths . Review pec & scalene stretch, UE neural stretches. Cont with Either paraffin or manual therapy to start, f/b ex strengthening R arm, stretch, end Iontophoresis. Pt to see mid February.
--- NOTE | 2019-02-19 15:22 | PT.OTN ---
Current Diagnoses Pain in right wrist (02/19/19) Physical Therapy Treatment Note PT-OP-A Visit Information Start: 12/22/18 14:35 Freq: Status: Active Protocol: Document 02/19/19 08:17 LRN (Rec: 02/19/19 09:14 LRN [id number]) Out-Patient Physical Therapy Visit Information Visit Information Visit Type Treatment Note Visit Note New POC expires 03/19/19 Visit Start Time 08:17 Visit Stop Time 09:07 Total Visit Minutes 50 Visit Number 15 Number of SPIRITS MODEL Visits 0 Evaluation Information Evaluation Date 12/24/18 PT-OP-B Current Condition Start: 12/22/18 14:35 Freq: Status: Active Protocol: Document 12/24/18 10:34 LRN (Rec: 12/24/18 10:56 LRN [id number]) Current Condition History of Current Condition Onset Date 04/2010 Current Complaints Pain in the R wrist present with activity History of Current Condition In April of 2010, while at work at [facility], a nurse and her were getting a pt out of bed and was trying to lift a tubing alongside the bed when her R hand came up, hitting her wrist on the bed rail. After her shift was over she went to the ER to have her wrist checked for fear something was broken. She was found to have no broken bone but possible nerve damage, and was told [address] Zendejas that she could have tendinitis or carpel tunnel in the future. With time she improved until an insidious onset of R medial wrist pain started in Jul 2018. 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 Currently, she has stiffness first in AM, and every time she uses her hand she has shooting pain from R lateral thumb MCP jt to mid lateral forearm. The pt is R handed. Prior Treatments and Tests Pt reports X-ray of 10/2018 showed no broken bones. Future Testing and Treatments Planned None Treatment Goals Patient/Caregiver Goals Eliminate the pain completely. 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 Current Functional Impairments (Reported) Functional Limitations- ADL's Limited with any use of R hand Functional Limitations- Work/School Still able to work. Intermittently dull pain comes on when typing on the keyboard (mid shift). Personal Factors Other Personal Factors That May Effect 2 daughters ages 2 and 6. Therapy/Recovery Occasional headaches. History of Depression. PT-OP-C Subjective Start: 12/22/18 14:35 Freq: Status: Active Protocol: Document 02/19/19 08:17 LRN (Rec: 02/19/19 09:14 LRN [id number]) OP-PT Subjective Patient Comments Patient Comments 1 day without pain, did ex's and the the next day hurt again. Use of heat helped with the pain. PT-OP-F Manual Assessment Start: 12/22/18 14:35 Freq: Status: Active Protocol: Document 12/24/18 10:34 LRN (Rec: 12/24/18 15:06 LRN [id number]) Manual Assessments Soft Tissue Assessment Soft Tissue Mobility Assessment Swelling present in the R wrist laterally. Joint Mobility Assessment Joint Mobility Assessment Joint mobility of R carpal bones was normal. PT-OP-H Neuro Start: 12/22/18 14:35 Freq: Status: Active Protocol: Document 12/24/18 10:34 LRN (Rec: 12/24/18 15:06 LRN [id number]) Sensation Evaluation Gross Sensation Sensation Description Paresthesia Dermatome Impairments C6 T1 Comments Summary Comments Tingling was present in the R thumb and index finger with touch. PT-OP-J Posture/Palpation/Skin Start: 12/22/18 14:35 Freq: Status: Active Protocol: Document 12/24/18 10:34 LRN (Rec: 12/24/18 15:06 LRN [id number]) Palpation Assessment Location R thumb Palpation Location Abductor and extensor tendon Palpation Findings Edema Tenderness PT-OP-K Range of Motion Start: 12/22/18 14:35 Freq: Status: Active Protocol: Document 02/12/19 09:54 LRN (Rec: 02/12/19 15:12 LRN [id number]) Wrist Goniometric Range of Motion Wrist Measured in Degrees Right Flexion Active (degrees) 85 Flexion Passive (degrees) 90 Extension Active (degrees) 70 Extension Passive (degrees) 80 Ulnar Deviation Active (degrees) 40 Radial Deviation Active (degrees) 20 ROM Limitations Wrist Limitations of Range of Motion Pain Comments R Wrist active & passive ext is decreased. Thumb Goniometric Range of Motion Thumb Measured in Degrees Left MCP Flexion Active (degrees) 50 CMC Extension Active (degrees) 50 Right MCP Flexion Active (degrees) 35 CMC Extension Active (degrees) 40 Thumb ROM Limitations Thumb Range of Motion Limitations Pain Comments CMC Thumb ABD: 70 deg's right , 75 deg's left. PT-OP-L Special Tests Start: 12/22/18 14:35 Freq: Status: Active Protocol: Document 01/25/19 09:49 LRN (Rec: 01/25/19 16:04 LRN [id number]) Special Tests Cervical Spine Special Tests Upper Limb Tension Test Test Results Positive Foraminal Compression Test Results Negative PT-OP-M Strength Start: 12/22/18 14:35 Freq: Status: Active Protocol: Document 02/12/19 09:54 LRN (Rec: 02/12/19 15:15 LRN [id number]) Hand Rehabilitation Teacher/Pinch Strength Hand Strength Left Rehabilitation Teacher (lbs) 21 Comments 3 Trails: 29#, 28#, 26# Right Rehabilitation Teacher (lbs) 17 Comments 3 Trials: 18#, 16#, 16# (avg is 16.67#) PT-OP-Q Treatments Start: 12/22/18 14:35 Freq: Status: Active Protocol: Document 02/19/19 08:17 LRN (Rec: 02/19/19 09:14 LRN [id number]) Therapeutic Exercises Sitting Exercises Tricep press Side right Equipment Used 3# Comments 10 x 2 Elbow Curl Side right Resistance 3# Reps/Minutes 10 x 2 7 Sitting Exercise Name tendon gliding for de Quervains tendonitis Reps/Minutes x 10 reps Comments end with 30 second stretch 6 Sitting Exercise Name soft paraffin wax: thumb flexion/extension Reps/Minutes x 10 reps Comments ROM measured 5 Sitting Exercise Name supination/pronation stretch during Ultasound Resistance 1# Reps/Minutes 15x2 Comments ROM measurements taken Self-Care/Home Management Treatment Education Patient Education Home Exercise Program Activities Self-Care/Home Management Activities HEP issued and reviewed: Scalene stretches, UE neural glides (radial, median w/wrist in pron, added sup and neutral position). PT-OP-R Modalities Start: 12/22/18 14:35 Freq: Status: Active Protocol: Document 02/19/19 08:17 LRN (Rec: 02/19/19 09:14 LRN [id number]) Iontophoresis Treatment R wrist Treatment Medication Dexamethasone (-) Treatment Polarity Negative to Negative Patient Tolerance Excellent Comment Treatment Comment Ionto patch pre-prepared Paraffin Bath Treatment Right Hand Treatment Technique Dip-immersion Duration (minutes) 5 Patient Tolerance Good Comment Treatment Comment Set up for post dipping pre- prepared PT-OP-T Assessment and Plan Start: 12/22/18 14:35 Freq: Status: Active Protocol: Document 02/19/19 08:17 LRN (Rec: 02/19/19 09:14 LRN [id number]) Physical Therapy Assessment Assessment Summary Assessment Some improvement with pt having one full day without pain. She has muscle tightness of the neck on the R , including Pec Minor. Improved thumb flexor pollcis mobility after paraffin dip ( mild stretch motion with thumb tucked without pain). Did not assess tenderness at the radial head, snuf box. Pt able to do isometric thumb extension with resistance below MCP jt without pain. Pain is present with resistance applied above MCP jt. Progress is slow probably due to the usage of her hand as a mother of 2 young children. Physical Therapy Plan Frequency and Duration Frequency of Treatment 2x/Week Duration of Treatment 2 month Plan of Care Start Date 02/12/19 Plan of Care End Date 03/19/19 Other Referrals/Consults Referrals/Consults Recommended Pt is interested in learning of other possible options (use of cortisone injection) to quickly eliminate her wrist pain. Next Visit Focus/Plan Next Note Type Treatment Note Next Visit Plan Issue HEP: pec minor stretch. Review scalene stretch, UE neural stretches and therapeutic ex stabilization of the thumb. Cont with Either paraffin or manual therapy to start, f/b ex strengthening R arm, stretch, US or Iontophoresis. Remind pt to do contrast baths. Other possible use of K-tape. Pt to call MD to seek further medical evaluation for possibly a quicker resolution to her pain.
--- NOTE | 2019-02-22 16:02 | PT.OTN ---
Current Diagnoses Pain in right wrist (02/22/19) Physical Therapy Treatment Note PT-OP-A Visit Information Start: 12/22/18 14:35 Freq: Status: Active Protocol: Document 02/22/19 12:49 LRN (Rec: 02/22/19 13:35 LRN [id number]) Out-Patient Physical Therapy Visit Information Visit Information Visit Type Treatment Note Visit Note New POC expires 03/19/19 Visit Start Time 12:49 Visit Stop Time 13:31 Total Visit Minutes 42 Visit Number 16 Number of STRATEGY ASSOCIATE Visits 0 Evaluation Information Evaluation Date 12/24/18 PT-OP-B Current Condition Start: 12/22/18 14:35 Freq: Status: Active Protocol: Document 12/24/18 10:34 LRN (Rec: 12/24/18 10:56 LRN [id number]) Current Condition History of Current Condition Onset Date 04/2010 Current Complaints Pain in the R wrist present with activity History of Current Condition In April of 2010, while at work at [facility] [employer], a nurse and her were getting a pt out of bed and was trying to lift a tubing alongside the bed when her R hand came up, hitting her wrist on the bed rail. After her shift was over she went to the ER to have her wrist checked for fear something was broken. She was found to have no broken bone but possible nerve damage, and was told [address] Zendejas that she could have tendinitis or carpel tunnel in the future. With time she improved until an insidious onset of R medial wrist pain started in Jul 2018. 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 Currently, she has stiffness first in AM, and every time she uses her hand she has shooting pain from R lateral thumb MCP jt to mid lateral forearm. The pt is R handed. Prior Treatments and Tests Pt reports X-ray of 10/2018 showed no broken bones. Future Testing and Treatments Planned None Treatment Goals Patient/Caregiver Goals Eliminate the pain completely. 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 Current Functional Impairments (Reported) Functional Limitations- ADL's Limited with any use of R hand Functional Limitations- Work/School Still able to work. Intermittently dull pain comes on when typing on the keyboard (mid shift). Personal Factors Other Personal Factors That May Effect 2 daughters ages 2 and 6. Therapy/Recovery Occasional headaches. History of Depression. PT-OP-C Subjective Start: 12/22/18 14:35 Freq: Status: Active Protocol: Document 02/22/19 12:49 LRN (Rec: 02/22/19 13:35 LRN [id number]) OP-PT Subjective Patient Comments Patient Comments States her pain has been off but not the whole day. PT-OP-F Manual Assessment Start: 12/22/18 14:35 Freq: Status: Active Protocol: Document 12/24/18 10:34 LRN (Rec: 12/24/18 15:06 LRN [id number]) Manual Assessments Soft Tissue Assessment Soft Tissue Mobility Assessment Swelling present in the R wrist laterally. Joint Mobility Assessment Joint Mobility Assessment Joint mobility of R carpal bones was normal. PT-OP-H Neuro Start: 12/22/18 14:35 Freq: Status: Active Protocol: Document 12/24/18 10:34 LRN (Rec: 12/24/18 15:06 LRN [id number]) Sensation Evaluation Gross Sensation Sensation Description Paresthesia Dermatome Impairments C6 T1 Comments Summary Comments Tingling was present in the R thumb and index finger with touch. PT-OP-J Posture/Palpation/Skin Start: 12/22/18 14:35 Freq: Status: Active Protocol: Document 12/24/18 10:34 LRN (Rec: 12/24/18 15:06 LRN [id number]) Palpation Assessment Location R thumb Palpation Location Abductor and extensor tendon Palpation Findings Edema Tenderness PT-OP-K Range of Motion Start: 12/22/18 14:35 Freq: Status: Active Protocol: Document 02/12/19 09:54 LRN (Rec: 02/12/19 15:12 LRN [id number]) Wrist Goniometric Range of Motion Wrist Measured in Degrees Right Flexion Active (degrees) 85 Flexion Passive (degrees) 90 Extension Active (degrees) 70 Extension Passive (degrees) 80 Ulnar Deviation Active (degrees) 40 Radial Deviation Active (degrees) 20 ROM Limitations Wrist Limitations of Range of Motion Pain Comments R Wrist active & passive ext is decreased. Thumb Goniometric Range of Motion Thumb Measured in Degrees Left MCP Flexion Active (degrees) 50 CMC Extension Active (degrees) 50 Right MCP Flexion Active (degrees) 35 CMC Extension Active (degrees) 40 Thumb ROM Limitations Thumb Range of Motion Limitations Pain Comments CMC Thumb ABD: 70 deg's right , 75 deg's left. PT-OP-L Special Tests Start: 12/22/18 14:35 Freq: Status: Active Protocol: Document 01/25/19 09:49 LRN (Rec: 01/25/19 16:04 LRN [id number]) Special Tests Cervical Spine Special Tests Upper Limb Tension Test Test Results Positive Foraminal Compression Test Results Negative PT-OP-M Strength Start: 12/22/18 14:35 Freq: Status: Active Protocol: Document 02/12/19 09:54 LRN (Rec: 02/12/19 15:15 LRN [id number]) Hand Art Historian/Pinch Strength Hand Strength Left Art Historian (lbs) 21 Comments 3 Trails: 29#, 28#, 26# Right Art Historian (lbs) 17 Comments 3 Trials: 18#, 16#, 16# (avg is 16.67#) PT-OP-Q Treatments Start: 12/22/18 14:35 Freq: Status: Active Protocol: Document 02/22/19 12:49 LRN (Rec: 02/22/19 13:35 LRN [id number]) Therapeutic Exercises Sitting Exercises Tricep press Side right Equipment Used 3# Comments 10 x 3 Elbow Curl Side right Resistance 3# Reps/Minutes 10 x 3 7 Sitting Exercise Name tendon gliding for de Quervains tendonitis Comments end with 30 second stretch 6 Sitting Exercise Name soft paraffin wax: thumb flexion/extension Reps/Minutes x 10 reps 5 Sitting Exercise Name supination/pronation stretch during Ultasound Resistance 2# Reps/Minutes 15x 1 Sitting Exercise Name wrist flexor and extensor stretch & ex Resistance 2# Reps/Minutes 15 reps Manual Therapy Treatment Soft Tissue Mobilization 2 Body Location manual STM/MFR of the forearm on the radial side of the wrist Mobilization Type Strumming Trigger Point Release Comments Manual stretching of the thumb adductor pollicis muscle, thumb extensors pollicis brevis and longus 1 Body Location R thumb CMC joint and extensor /abductor tendons Mobilization Type Cross-Friction Manual Techniques Neck Type C/S gapping and Scalene stretch Body Location Neck Body Position Supine Self-Care/Home Management Treatment Education Patient Education Home Exercise Program Activities Self-Care/Home Management Activities Issued & reviewed HEP: Pec Minor stretch. PT-OP-R Modalities Start: 12/22/18 14:35 Freq: Status: Active Protocol: Document 02/22/19 12:49 LRN (Rec: 02/22/19 13:35 LRN [id number]) Iontophoresis Treatment R wrist Treatment Medication Dexamethasone (-) Treatment Polarity Negative to Negative Treatment Duration (minutes) 7 Patient Tolerance Excellent Paraffin Bath Treatment Right Hand Treatment Technique Dip-immersion Duration (minutes) 5 Patient Tolerance Good PT-OP-T Assessment and Plan Start: 12/22/18 14:35 Freq: Status: Active Protocol: Document 02/22/19 12:49 LRN (Rec: 02/22/19 13:35 LRN [id number]) Physical Therapy Assessment Assessment Summary Assessment Some improvement with pt having one full day without pain. She has muscle tightness of the neck on the R , including Pec Minor. Improved thumb flexor pollcis mobility after paraffin dip ( mild stretch motion with thumb tucked without pain). Did not assess tenderness at the radial head, snuf box. Pt able to do isometric thumb extension with resistance below MCP jt without pain. Pain is present with resistance applied above MCP jt. Progress is slow probably due to the usage of her hand as a mother of 2 young children. Physical Therapy Plan Frequency and Duration Frequency of Treatment 2x/Week Duration of Treatment 2 month Plan of Care Start Date 02/12/19 Plan of Care End Date 03/19/19 Therapeutic Interventions Therapeutic Interventions Coordination Training Home Exercise Program Joint Mobilizations Manual Therapy Patient/Caregiver Education Self-Care/Home Management Soft Tissue Mobilization Taping Therapeutic Exercises Modalities Cold Pack/Ice Massage Hot Packs Infrared Therapy Iontophoresis Paraffin Bath Traction- Mechanical Ultrasound Other Referrals/Consults Referrals/Consults Recommended Pt is interested in learning of other possible options (use of cortisone injection) to quickly eliminate her wrist pain. Next Visit Focus/Plan Next Note Type Treatment Note Next Visit Plan Review scalene & pec minor stretch, UE neural stretches and therapeutic ex stabilization of the thumb. Cont with Either paraffin or manual therapy to start, f/b ex strengthening R arm, stretch, US or Iontophoresis. Remind pt to do contrast baths. Other possible use of K-tape.
--- NOTE | 2019-02-26 14:30 | PT.OTN ---
Current Diagnoses Pain in right wrist (02/26/19) Physical Therapy Treatment Note PT-OP-A Visit Information Start: 12/22/18 14:35 Freq: Status: Active Protocol: Document 02/26/19 09:04 LRN (Rec: 02/26/19 09:51 LRN [id number]) Out-Patient Physical Therapy Visit Information Visit Information Visit Type Treatment Note Visit Note New POC expires 03/19/19 Visit Start Time 09:04 Visit Stop Time 09:49 Total Visit Minutes 45 Visit Number 17 Number of TABLE INSPECTOR Visits 0 Evaluation Information Evaluation Date 12/24/18 PT-OP-B Current Condition Start: 12/22/18 14:35 Freq: Status: Active Protocol: Document 12/24/18 10:34 LRN (Rec: 12/24/18 10:56 LRN [id number]) Current Condition History of Current Condition Onset Date 04/2010 Current Complaints Pain in the R wrist present with activity History of Current Condition In April of 2010, while at work at [employer], a nurse and her were getting a pt out of bed and was trying to lift a tubing alongside the bed when her R hand came up, hitting her wrist on the bed rail. After her shift was over she went to the ER to have her wrist checked for fear something was broken. She was found to have no broken bone but possible nerve damage, and was told [address] Zendejas that she could have tendinitis or carpel tunnel in the future. With time she improved until an insidious onset of R medial wrist pain started in Jul 2018. 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 Currently, she has stiffness first in AM, and every time she uses her hand she has shooting pain from R lateral thumb MCP jt to mid lateral forearm. The pt is R handed. Prior Treatments and Tests Pt reports X-ray of 10/2018 showed no broken bones. Future Testing and Treatments Planned None Treatment Goals Patient/Caregiver Goals Eliminate the pain completely. 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 Current Functional Impairments (Reported) Functional Limitations- ADL's Limited with any use of R hand Functional Limitations- Work/School Still able to work. Intermittently dull pain comes on when typing on the keyboard (mid shift). Personal Factors Other Personal Factors That May Effect 2 daughters ages 2 and 6. Therapy/Recovery Occasional headaches. History of Depression. PT-OP-C Subjective Start: 12/22/18 14:35 Freq: Status: Active Protocol: Document 02/26/19 09:04 LRN (Rec: 02/26/19 09:51 LRN [id number]) OP-PT Subjective Patient Comments Patient Comments Some days are better than others. There are more days that is hurting less, longer periods of it not hurting.; Patient Reported Progress Same PT-OP-F Manual Assessment Start: 12/22/18 14:35 Freq: Status: Active Protocol: Document 12/24/18 10:34 LRN (Rec: 12/24/18 15:06 LRN [id number]) Manual Assessments Soft Tissue Assessment Soft Tissue Mobility Assessment Swelling present in the R wrist laterally. Joint Mobility Assessment Joint Mobility Assessment Joint mobility of R carpal bones was normal. PT-OP-H Neuro Start: 12/22/18 14:35 Freq: Status: Active Protocol: Document 12/24/18 10:34 LRN (Rec: 12/24/18 15:06 LRN [id number]) Sensation Evaluation Gross Sensation Sensation Description Paresthesia Dermatome Impairments C6 T1 Comments Summary Comments Tingling was present in the R thumb and index finger with touch. PT-OP-J Posture/Palpation/Skin Start: 12/22/18 14:35 Freq: Status: Active Protocol: Document 12/24/18 10:34 LRN (Rec: 12/24/18 15:06 LRN [id number]) Palpation Assessment Location R thumb Palpation Location Abductor and extensor tendon Palpation Findings Edema Tenderness PT-OP-K Range of Motion Start: 12/22/18 14:35 Freq: Status: Active Protocol: Document 02/12/19 09:54 LRN (Rec: 02/12/19 15:12 LRN [id number]) Wrist Goniometric Range of Motion Wrist Measured in Degrees Right Flexion Active (degrees) 85 Flexion Passive (degrees) 90 Extension Active (degrees) 70 Extension Passive (degrees) 80 Ulnar Deviation Active (degrees) 40 Radial Deviation Active (degrees) 20 ROM Limitations Wrist Limitations of Range of Motion Pain Comments R Wrist active & passive ext is decreased. Thumb Goniometric Range of Motion Thumb Measured in Degrees Left MCP Flexion Active (degrees) 50 CMC Extension Active (degrees) 50 Right MCP Flexion Active (degrees) 35 CMC Extension Active (degrees) 40 Thumb ROM Limitations Thumb Range of Motion Limitations Pain Comments CMC Thumb ABD: 70 deg's right , 75 deg's left. PT-OP-L Special Tests Start: 12/22/18 14:35 Freq: Status: Active Protocol: Document 01/25/19 09:49 LRN (Rec: 01/25/19 16:04 LRN [id number]) Special Tests Cervical Spine Special Tests Upper Limb Tension Test Test Results Positive Foraminal Compression Test Results Negative PT-OP-M Strength Start: 12/22/18 14:35 Freq: Status: Active Protocol: Document 02/12/19 09:54 LRN (Rec: 02/12/19 15:15 LRN [id number]) Hand Special Projects Coordinator/Pinch Strength Hand Strength Left Special Projects Coordinator (lbs) 21 Comments 3 Trails: 29#, 28#, 26# Right Special Projects Coordinator (lbs) 17 Comments 3 Trials: 18#, 16#, 16# (avg is 16.67#) PT-OP-Q Treatments Start: 12/22/18 14:35 Freq: Status: Active Protocol: Document 02/26/19 09:04 LRN (Rec: 02/26/19 09:51 LRN [id number]) Therapeutic Exercises Sitting Exercises Andi stretch Sitting Exercise Name Andi stretch after paraffin dip Side right Thumb Active ext Sitting Exercise Name Thumb ext Side right Comments W/o & with assist (LUZ glide @ MCP jt & AB of 1st phlange Thumb isometric ext Sitting Exercise Name Isometric in several positions Side right Resistance Manual Comments Resistance at proximal and distal to MCP jt 1 Sitting Exercise Name wrist flexor and extensor stretch & ex Resistance 2# Reps/Minutes 15 reps Manual Therapy Treatment Soft Tissue Mobilization R Thenar [place] Body Location R Thenar [place] Mobilization Type Strumming Sustained Pressure Intensity/Depth Moderate R thumb AD Body Location Web space Mobilization Type Myofascial Release Strumming Sustained Pressure Intensity/Depth Moderate Comments Very tight 2 Body Location manual STM/MFR of the forearm on the radial side of the wrist Mobilization Type Strumming Trigger Point Release Comments Manual stretching of the thumb adductor pollicis muscle, thumb extensors pollicis brevis and longus 1 Body Location R thumb CMC joint and extensor /abductor tendons Mobilization Type Cross-Friction Joint Mobilizations R Thumb CMC jt Joint CMC Jt Direction PA Comments Performed with R thumb ext. Nerve Glides R arm Nerve Radial Manual Techniques R Pec Minor Type C/R Stretch Neck Type C/S gapping and Scalene stretch Body Location Neck Body Position Supine PT-OP-R Modalities Start: 12/22/18 14:35 Freq: Status: Active Protocol: Document 02/26/19 09:04 LRN (Rec: 02/26/19 09:51 LRN [id number]) Iontophoresis Treatment R wrist Treatment Medication Dexamethasone (-) Treatment Polarity Negative to Negative Active Electrode Placement Tendon sheath of Ext pollicis brevis & AB pollicis longus tendons Treatment Duration (minutes) 7 Patient Tolerance Excellent - 4 hour pad Paraffin Bath Treatment Right Hand Treatment Technique Dip-immersion Duration (minutes) 5 Patient Tolerance Good PT-OP-T Assessment and Plan Start: 12/22/18 14:35 Freq: Status: Active Protocol: Document 02/26/19 09:04 LRN (Rec: 02/26/19 14:27 LRN [id number]) Physical Therapy Assessment Goals Function Impairment Intermittent sharp pain at work (part-time) Longterm Goal (LTG) Pt will be able to work a full shift without onset of R wrist pain. 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 Longterm Goal (LTG) Pt will demonstrate vocational horticulture instructor strength 30-33 kg's (normal for ages 35-39 year olds). LTG Duration 02/19/19 (02/12/19: Worse) ROM Impairment Decreased R wrist mobility with +Finklestein's Test Longterm Goal (LTG) Pt will be able to demonstrate normal active R thumb and wrist mobility without pain. LTG Duration 02/05/19 (02/12/19: Improved) Pain Impairment Pain rated 8/10 with activity use Short Term Goal (STG) Pt will show 50% improvement with pain intermittent with use. STG Duration 01/21/19 Fruit Harvest Worker Goal (LTG) Pt will be painfree with activities at work in the R medial wrist. LTG Duration 02/19/19 Self Care Impairment Pt lacks self care HEP Fruit Harvest Worker Goal (LTG) Pt will be independent with a self care HEP. LTG Duration 02/19/19 Progress Towards Goals Progress Towards Goals Slow Progress due to Activity Tolerance Assessment Summary Assessment Pt is able to perform a Andi stretch without pain. She can tolerate light isometric R thumb ext hold both proximal and distal to the MCP joint. Pain onset with repetitive thumb ext. Pt has soft tissue tightness of the thumb AB & flexer muscles that need further soft tissue mob and stretching. Physical Therapy Plan Frequency and Duration Frequency of Treatment 2x/Week Duration of Treatment 2 month Plan of Care Start Date 02/12/19 Plan of Care End Date 03/19/19 Next Visit Focus/Plan Next Note Type Treatment Note Next Visit Plan Review Scalene stretch. Cont with paraffin dip to start, f/ b Cervical & UE stretching with ex strengthening R arm, end with Iontophoresis. Remind pt to do contrast baths . Other possible use of K- tape.
--- NOTE | 2019-03-09 11:48 | PT.OTN ---
Current Diagnoses Pain in right wrist (03/09/19) Physical Therapy Treatment Note PT-OP-A Visit Information Start: 12/22/18 14:35 Freq: Status: Active Protocol: Document 03/09/19 08:20 LRN (Rec: 03/09/19 09:08 LRN [id number]) Out-Patient Physical Therapy Visit Information Visit Information Visit Type Treatment Note Visit Start Time 08:20 Visit Stop Time 09:08 Total Visit Minutes 48 Visit Number 19 Number of ACCOUNTS RECEIVABLE ACCOUNTANT Visits 0 Evaluation Information Evaluation Date 12/24/18 PT-OP-B Current Condition Start: 12/22/18 14:35 Freq: Status: Active Protocol: Document 12/24/18 10:34 LRN (Rec: 12/24/18 10:56 LRN [id number]) Current Condition History of Current Condition Onset Date 04/2010 Current Complaints Pain in the R wrist present with activity History of Current Condition In April of 2010, while at work at [facility], a nurse and her were getting a pt out of bed and was trying to lift a tubing alongside the bed when her R hand came up, hitting her wrist on the bed rail. After her shift was over she went to the ER to have her wrist checked for fear something was broken. She was found to have no broken bone but possible nerve damage, and was told [address] Zendejas that she could have tendinitis or carpel tunnel in the future. With time she improved until an insidious onset of R medial wrist pain started in Jul 2018. 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 Currently, she has stiffness first in AM, and every time she uses her hand she has shooting pain from R lateral thumb MCP jt to mid lateral forearm. The pt is R handed. Prior Treatments and Tests Pt reports X-ray of 10/2018 showed no broken bones. Future Testing and Treatments Planned None Treatment Goals Patient/Caregiver Goals Eliminate the pain completely. 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 Current Functional Impairments (Reported) Functional Limitations- ADL's Limited with any use of R hand Functional Limitations- Work/School Still able to work. Intermittently dull pain comes on when typing on the keyboard (mid shift). Personal Factors Other Personal Factors That May Effect 2 daughters ages 2 and 6. Therapy/Recovery Occasional headaches. History of Depression. PT-OP-C Subjective Start: 12/22/18 14:35 Freq: Status: Active Protocol: Document 03/09/19 08:20 LRN (Rec: 03/09/19 09:08 LRN [id number]) OP-PT Subjective Patient Comments Patient Comments Seeing MD in 2 days. Over weekend the R wrist got worse because on TH misplaced the brace until later in the day. Hurt for the next 2 days and yesterday started to feel better again. Today the wrist feels stiff, can move the thumb without pain. PT-OP-F Manual Assessment Start: 12/22/18 14:35 Freq: Status: Active Protocol: Document 12/24/18 10:34 LRN (Rec: 12/24/18 15:06 LRN [id number]) Manual Assessments Soft Tissue Assessment Soft Tissue Mobility Assessment Swelling present in the R wrist laterally. Joint Mobility Assessment Joint Mobility Assessment Joint mobility of R carpal bones was normal. PT-OP-H Neuro Start: 12/22/18 14:35 Freq: Status: Active Protocol: Document 12/24/18 10:34 LRN (Rec: 12/24/18 15:06 LRN [id number]) Sensation Evaluation Gross Sensation Sensation Description Paresthesia Dermatome Impairments C6 T1 Comments Summary Comments Tingling was present in the R thumb and index finger with touch. PT-OP-J Posture/Palpation/Skin Start: 12/22/18 14:35 Freq: Status: Active Protocol: Document 12/24/18 10:34 LRN (Rec: 12/24/18 15:06 LRN [id number]) Palpation Assessment Location R thumb Palpation Location Abductor and extensor tendon Palpation Findings Edema Tenderness PT-OP-K Range of Motion Start: 12/22/18 14:35 Freq: Status: Active Protocol: Document 02/12/19 09:54 LRN (Rec: 02/12/19 15:12 LRN [id number]) Wrist Goniometric Range of Motion Wrist Measured in Degrees Right Flexion Active (degrees) 85 Flexion Passive (degrees) 90 Extension Active (degrees) 70 Extension Passive (degrees) 80 Ulnar Deviation Active (degrees) 40 Radial Deviation Active (degrees) 20 ROM Limitations Wrist Limitations of Range of Motion Pain Comments R Wrist active & passive ext is decreased. Thumb Goniometric Range of Motion Thumb Measured in Degrees Left MCP Flexion Active (degrees) 50 CMC Extension Active (degrees) 50 Right MCP Flexion Active (degrees) 35 CMC Extension Active (degrees) 40 Thumb ROM Limitations Thumb Range of Motion Limitations Pain Comments CMC Thumb ABD: 70 deg's right , 75 deg's left. PT-OP-L Special Tests Start: 12/22/18 14:35 Freq: Status: Active Protocol: Document 01/25/19 09:49 LRN (Rec: 01/25/19 16:04 LRN [id number]) Special Tests Cervical Spine Special Tests Upper Limb Tension Test Test Results Positive Foraminal Compression Test Results Negative PT-OP-M Strength Start: 12/22/18 14:35 Freq: Status: Active Protocol: Document 02/12/19 09:54 LRN (Rec: 02/12/19 15:15 LRN [id number]) Hand Cold Mill Supervisor/Pinch Strength Hand Strength Left Cold Mill Supervisor (lbs) 21 Comments 3 Trails: 29#, 28#, 26# Right Cold Mill Supervisor (lbs) 17 Comments 3 Trials: 18#, 16#, 16# (avg is 16.67#) PT-OP-Q Treatments Start: 12/22/18 14:35 Freq: Status: Active Protocol: Document 03/09/19 08:20 LRN (Rec: 03/09/19 11:47 LRN [id number]) Therapeutic Exercises Sitting Exercises Andi stretch Sitting Exercise Name Andi stretch after paraffin dip Side right Thumb Active ext Sitting Exercise Name Thumb ext Side right Comments W/o & with assist (LUZ nguyen @ MCP jt & AB of 1st phlange Thumb isometric ext Sitting Exercise Name Isometric in several positions Side right Resistance Manual Comments Resistance at proximal and distal to MCP jt Manual Therapy Treatment Soft Tissue Mobilization R thumb AD Body Location Web space Mobilization Type Myofascial Release Strumming Sustained Pressure Intensity/Depth Moderate Comments Very tight 2 Body Location manual STM/MFR of the forearm on the radial side of the wrist Mobilization Type Strumming Trigger Point Release Comments Manual stretching of the thumb adductor pollicis muscle, thumb extensors pollicis brevis and longus 1 Body Location R thumb CMC joint and extensor /abductor tendons Mobilization Type Cross-Friction Joint Mobilizations R Thumb CMC jt Joint CMC Jt Direction ADD with R thumb ext Comments h R thumb ext. Manual Techniques R Thumb Body Location Thumb extensor and extensor tendons R Pec Minor Type Manual stretch Body Position Supine Neck Type Manual stretch to R UT; Scalene stretch Body Location Neck Body Position Supine PT-OP-R Modalities Start: 12/22/18 14:35 Freq: Status: Active Protocol: Document 03/09/19 08:20 LRN (Rec: 03/09/19 11:47 LRN [id number]) Iontophoresis Treatment R wrist Treatment Medication Star patch: Dexamethasone (-) Treatment Polarity Negative to Negative Active Electrode Placement Tendon sheath of Ext pollicis brevis & AB pollicis longus tendons Treatment Duration (minutes) 7 Patient Tolerance Excellent - 4 hour pad Paraffin Bath Treatment Right Hand Treatment Technique Dip-immersion Duration (minutes) 5 Patient Tolerance Good PT-OP-T Assessment and Plan Start: 12/22/18 14:35 Freq: Status: Active Protocol: Document 03/09/19 08:20 LRN (Rec: 03/09/19 09:08 LRN [id number]) Physical Therapy Assessment Assessment Summary Assessment Not able to start router setter strengthening due to extra time taken to decrease pain with Feinkelstein stretching ( STM). Pt was not significantly worse. + response to treatment with improved R wrist mobility and tolerance to active thumb ext after therapy. Pt progress is very slow as expected. The pt will probably not be back to her prior level of function by end of rehab, that is being limited by insurance timeframe. Pt has chosen to limit rehab to insurance timeframe due to financial reasons. The pt will probably have to continue independently on a HEP if further therapy is denied. Physical Therapy Plan Frequency and Duration Frequency of Treatment 2x/Week Duration of Treatment 2 month Plan of Care Start Date 02/12/19 Plan of Care End Date 03/19/19 Next Visit Focus/Plan Next Note Type Treatment Note Next Visit Plan Train for HEP of router setter strengthening and digits 2-5 extension strengthening. Discuss self care during therapy due to 3 visits remaining on insurance limit that pt does not want to go over. Cont with paraffin dip to start, f/b Cervical & UE stretching with ex strengthening R arm, end with Iontophoresis. Encourage home contrast baths. Other possible use of K-tape.
--- NOTE | 2019-08-23 10:21 | PT-OP ANOTE ---
Message left for pt to call by 3:30p, end of therapist work day to discuss DC from PT if pt feels further therapy is needed.
--- NOTE | 2019-11-19 16:44 | PT.OPDS ---
Current Diagnoses Pain in right wrist (03/09/19) Visit Care Team Role Provider Type Denton Nazario MD Attending Provider Physician Family Provider Primary Care Provider Specialty: Family Practice Address: [address] [place] [address], [facility] Email: [email or web address] Visit Number Visit Number 19 Discharge Summary PT-OP-B Current Condition Start: 12/22/18 14:35 Freq: Status: Active Protocol: Document 12/24/18 10:34 LRN (Rec: 12/24/18 10:56 LRN [id number]) Current Condition History of Current Condition Onset Date 04/2010 Current Complaints Pain in the R wrist present with activity History of Current Condition In April of 2010, while at work at [facility] [employer], a nurse and her were getting a pt out of bed and was trying to lift a tubing alongside the bed when her R hand came up, hitting her wrist on the bed rail. After her shift was over she went to the ER to have her wrist checked for fear something was broken. She was found to have no broken bone but possible nerve damage, and was told [address] Zendejas that she could have tendinitis or carpel tunnel in the future. With time she improved until an insidious onset of R medial wrist pain started in Jul 2018. 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 Currently, she has stiffness first in AM, and every time she uses her hand she has shooting pain from R lateral thumb MCP jt to mid lateral forearm. The pt is R handed. Prior Treatments and Tests Pt reports X-ray of 10/2018 showed no broken bones. Future Testing and Treatments Planned None Treatment Goals Patient/Caregiver Goals Eliminate the pain completely. 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 Current Functional Impairments (Reported) Functional Limitations- ADL's Limited with any use of R hand Functional Limitations- Work/School Still able to work. Intermittently dull pain comes on when typing on the keyboard (mid shift). Personal Factors Other Personal Factors That May Effect 2 daughters ages 2 and 6. Therapy/Recovery Occasional headaches. History of Depression. PT-OP-C Subjective Start: 12/22/18 14:35 Freq: Status: Active Protocol: Document 03/09/19 08:20 LRN (Rec: 03/09/19 09:08 LRN [id number]) OP-PT Subjective Patient Comments Patient Comments Seeing MD in 2 days. Over weekend the R wrist got worse because on TH misplaced the brace until later in the day. Hurt for the next 2 days and yesterday started to feel better again. Today the wrist feels stiff, can move the thumb without pain. PT-OP-F Manual Assessment Start: 12/22/18 14:35 Freq: Status: Active Protocol: Document 12/24/18 10:34 LRN (Rec: 12/24/18 15:06 LRN [id number]) Manual Assessments Soft Tissue Assessment Soft Tissue Mobility Assessment Swelling present in the R wrist laterally. Joint Mobility Assessment Joint Mobility Assessment Joint mobility of R carpal bones was normal. PT-OP-H Neuro Start: 12/22/18 14:35 Freq: Status: Active Protocol: Document 12/24/18 10:34 LRN (Rec: 12/24/18 15:06 LRN [id number]) Sensation Evaluation Gross Sensation Sensation Description Paresthesia Dermatome Impairments C6,T1 Comments Summary Comments Tingling was present in the R thumb and index finger with touch. PT-OP-J Posture/Palpation/Skin Start: 12/22/18 14:35 Freq: Status: Active Protocol: Document 12/24/18 10:34 LRN (Rec: 12/24/18 15:06 LRN [id number]) Palpation Assessment Location R thumb Palpation Location Abductor and extensor tendon Palpation Findings Edema,Tenderness PT-OP-K Range of Motion Start: 12/22/18 14:35 Freq: Status: Active Protocol: Document 02/12/19 09:54 LRN (Rec: 02/12/19 15:12 LRN [id number]) Wrist Goniometric Range of Motion Wrist Right Flexion Active (degrees) 85 Flexion Passive (degrees) 90 Extension Active (degrees) 70 Extension Passive (degrees) 80 Ulnar Deviation Active (degrees) 40 Radial Deviation Active (degrees) 20 ROM Limitations Wrist Limitations of Range of Motion Pain Comments R Wrist active & passive ext is decreased. Thumb Goniometric Range of Motion Thumb Left MCP Flexion Active (degrees) 50 CMC Extension Active (degrees) 50 Right MCP Flexion Active (degrees) 35 CMC Extension Active (degrees) 40 Thumb ROM Limitations Thumb Range of Motion Limitations Pain Comments CMC Thumb ABD: 70 deg's right , 75 deg's left. PT-OP-L Special Tests Start: 12/22/18 14:35 Freq: Status: Active Protocol: Document 01/25/19 09:49 LRN (Rec: 01/25/19 16:04 LRN [id number]) Special Tests Cervical Spine Special Tests Upper Limb Tension Test Test Results Positive Foraminal Compression Test Results Negative PT-OP-M Strength Start: 12/22/18 14:35 Freq: Status: Active Protocol: Document 02/12/19 09:54 LRN (Rec: 02/12/19 15:15 LRN [id number]) Hand Multiple Drum Sander Helper/Pinch Strength Hand Strength Left Multiple Drum Sander Helper (lbs) 21 Comments 3 Trails: 29#, 28#, 26# Right Multiple Drum Sander Helper (lbs) 17 Comments 3 Trials: 18#, 16#, 16# (avg is 16.67#) PT-OP-T Assessment and Plan Start: 12/22/18 14:35 Freq: Status: Active Protocol: Document 11/19/19 16:36 LRN (Rec: 11/19/19 16:44 LRN [id number]) Physical Therapy Assessment Goals Function Impairment Intermittent sharp pain at work (part-time) Pharmacist Per Diem Goal (LTG) Pt will be able to work a full shift without onset of R wrist pain. LTG Duration 02/19/19 (02/12/19: Ocassionally Goal Met) Strength Impairment Decreased R dandy operator strength due to pain. Pharmacist Per Diem Goal (LTG) Pt will demonstrate dandy operator strength 30-33 kg's (normal for ages 35-39 year olds). LTG Duration 02/19/19 (02/12/19: Worse) ROM Impairment Decreased R wrist mobility with +Finklestein's Test Alf Goal (LTG) Pt will be able to demonstrate normal active R thumb and wrist mobility without pain. LTG Duration 02/05/19 (02/12/19: Improved) Pain Impairment Pain rated 8/10 with activity use Short Term Goal (STG) Pt will show 50% improvement with pain intermittent with use. STG Duration 01/21/19 Alf Goal (LTG) Pt will be painfree with activities at work in the R medial wrist. LTG Duration 02/19/19 Self Care Impairment Pt lacks self care HEP Pharmacist Per Diem Goal (LTG) Pt will be independent with a self care HEP. LTG Duration 02/19/19 Assessment Summary Assessment Pt was last seen on 03/09/19. Progress towards goals reviewed on 02/12/19. Pt was seen for 19 visits. The pt did not return for further therapy. I was not able to contact the patient to discuss her therapy, attempt failed. Pt is being discharged from therapy. Physical Therapy Plan Discharge Physical Therapy Discharge Reasons No Longer Attending PT Discharge Comments Unable to make final assessment due to lack of attendance.
== END 2019-11-22 11:02 ==
LOC: PHYS 08:15
PROVIDERS: Family Provider Family Medicine; PCP Family Medicine; Visit Provider Family Medicine
DX: M25.531 Pain in right wrist (principal)
CPT/HCPCS: 97018; 97033; 97035; 97110; 97140; 97162

== ENCOUNTER → 2019-10-11 14:53 | Outpatient (CLI) | payer OTHER, MEDICAID, SELFPAY | PROVIDERS: PCP Family Medicine | DX: Z23 Encounter for immunization (principal) | CPT/HCPCS: 90471; 90686 ==

== ENCOUNTER 2020-03-24 08:12 | Emergency (ER) | payer OTHER, MEDICAID, SELFPAY ==
--- NOTE | 2020-03-24 08:22 | ED_ITS ---
HPI - Extremity Problem General Chief complaint: Extremity Problem,Nontraumatic Stated complaint: Injury to ring finger on left hand, ring is stuck Time Seen by Provider: 03/24/20 08:19 Source: patient Mode of arrival: Ambulatory Limitations: no limitations History of Present Illness HPI Narrative: This is a pleasant 35-year-old female who comes to the emergency with complaint of injury on her left ring finger. She woke up this morning and realized her finger had swollen and she has been able to get her rings off of her finger. Patient states that she has been messing with it has become a little bit more swollen. She does not any numbness or tingling. She is able to flex the finger. She does not think that she broke her had any significant injury to the finger. She states she went to the store yesterday and thinks that she did something that irritated it. Patient denies any other symptoms. She has tried wrapping the finger with tape first without success. She denies any major medical issues. She is allergic to Demerol but denies any other allergies to medications. Related Data Home Medications Medication Instructions Recorded Confirmed cholecalciferol (vitamin D3) 50 2,000 unit PO DAILY 11/06/18 01/07/20 mcg (2,000 unit) capsule multivitamin 1 tab PO DAILY 11/27/19 01/07/20 etonogestrel 68 mg subdermal SUBDERMAL 01/07/20 01/07/20 implant Previous Rx's Medication Instructions Recorded ibuprofen 600 mg tablet 600 mg PO Q8H PRN #90 tab NS 09/02/19 Allergies Allergy/AdvReac Type Severity Reaction Status Date / Time venom-honey bee Allergy Unknown Anaphylaxis Verified 01/07/20 15:07 [BEE VENOM (HONEY BEE)] meperidine [MEPERIDINE] AdvReac Severe HOT RED Verified 01/07/20 15:07 RASH Review of Systems Review of Systems ROS Unobtainable: All systems reviewed & are unremarkable except as noted in HPI and below Patient History Medical History Conjunctivitis (Acute) Surgical History Status post delivery (06/16/12) Status post delivery (10/21/16) Status post laparoscopic cholecystectomy (04/14/07) Social History marital status: household members: spouse and children (2) Smoking Status: Never smoker alcohol intake: current (ON OCCASION ) substance use type: does not use Smoking Status: Never smoker alcohol intake frequency: holidays/special occasions only Substance Use Type: does not use Exam Narrative Exam Narrative: GENERAL: Alert and oriented x three, well-nourished well- appearing female in mild distress HEENT: Head normocephalic, atraumatic, EOMI, pupils reactive, face symmetric, moist mucous membranes NECK: Supple, full range of motion CARDIOVASCULAR: Regular rate and rhythm without murmurs, rubs or gallops. RESPIRATORY: Breath sounds equal bilaterally, no wheezes rales or rhonchi. EXTREMITIES: Normal range of motion, no clubbing. Patient has edema of the 4th finger on her left hand just distal to a ring on the hand. The very most distal portion of the finger is very mildly swollen but not as significantly. Patient is able to flex and extend fully with the finger. She has normal sensation with cap refill less than 2 seconds. She has no bony tenderness throughout the fingers or hand. No lacerations or cuts. Neurovascularly intact NEUROLOGICAL: Cranial nerves II through XII grossly intact. Moving all extremities SKIN: Warm, dry, no petechiae, no rashes or lesions. Initial Vital Signs Initial Vital Signs: Vital Signs Temperature 98.8 F 03/24/20 08:36 Pulse Rate 75 03/24/20 08:36 Respiratory Rate 16 03/24/20 08:36 Blood Pressure 164/74 H 03/24/20 08:36 Pulse Oximetry 99 03/24/20 08:36 Course Vital Signs Vital signs: Vital Signs - 8 hr 03/24/20 08:36 03/24/20 10:00 Temperature 98.8 F Pulse Rate 75 78 Respiratory Rate 16 19 Blood Pressure 164/74 H Blood Pressure [Right Arm] 147/72 H Pulse Oximetry 99 100 MDM - Extremity (Nontraumatic) MDM Narrative Medical decision making narrative: Attempted with ice bath, lubrication, and tape and nursing as able to remove after 30 minutes. Patient symptoms improving and return precautions discussed. Patient does not have any bony tenderness or concerning signs requiring additional imaging/workup at this time, she is NVI with skin intact. Discharge Plan Departure Patient Disposition: Home Clinical Impression: Tight ring on finger Discharge Date/Time: 03/24/20 10:02 Activity Restrictions/Additional Instructions: Follow up with the emergency department if you have any new or worsening symptoms. Continue to elevate finger and ice as needed. Avoid any rings or constrictive bandages until swelling has completely resolved. Return for any new numbness, tingling, weakness, loss of sensation, increasing pain or other new or concerning symptoms. Prescriptions: No Action cholecalciferol (vitamin D3) 2,000 unit capsule 2,000 unit PO DAILY RF: 0 ibuprofen 600 mg tablet 600 mg PO Q8H PRN (Reason: pain) Qty: 90 RF: 0 multivitamin Tablet 1 tab PO DAILY RF: 0 Nexplanon 68 mg implant subdermal RF: 0 Referrals: Denton Nazario MD [Primary Care Provider] -
[2020-03-24 08:36] VITALS: BP 164/74; PULSE 75; RESP 16; TEMP 37.1; O2SAT 99; BMI 33.3
[2020-03-24 10:00] VITALS: BP 147/72; PULSE 78; RESP 19; O2SAT 100
--- NOTE | 2020-03-24 10:25 | PC.NURSE ---
we were able to get ring off her finger using umbilical tape and lotion. swelling started to go down on finger. pt was discharged in NAD
== END 2020-03-24 10:02 | disposition home or self-care (01) ==
PROVIDERS: Emergency Provider Emergency Medicine; PCP Family Medicine
DX: M79.89 Other specified soft tissue disorders (principal)
CPT/HCPCS: 99282

== ENCOUNTER → 2020-10-25 12:48 | Outpatient (CLI) | payer OTHER, MEDICAID, SELFPAY | PROVIDERS: PCP Family Medicine; Referring Provider Internal Medicine; Visit Provider Internal Medicine | DX: Z23 Encounter for immunization (principal) | CPT/HCPCS: 90471; 90686 ==

== ENCOUNTER → 2020-11-29 15:21 | Outpatient (CLI) | payer OTHER, MEDICAID, SELFPAY ==
[2020-11-29] MEDS: COVID-19 VACC(MODERNA-1)/PF 100 MCG/0.5 ML VIAL IM (15:31)
== END ==
PROVIDERS: PCP Family Medicine; Visit Provider Internal Medicine
DX: Z23 Encounter for immunization (principal)
CPT/HCPCS: 0011A; 91301

== ENCOUNTER 2020-11-29 15:42 | Emergency (ER) | payer OTHER, MEDICAID, SELFPAY ==
[2020-11-29] VITALS (7 sets, daily range): BP systolic 132–144; BP diastolic 63–97; PULSE 90–111; RESP 14–22; TEMP 36.9; O2SAT 97–100
[2020-11-29] MEDS: FAMOTIDINE 20 MG/50 ML PIGGYBACK 200 MG IV (15:59)
[2020-11-29] MEDS: diphenhydrAMINE 50 MG/ML VIAL 25 MG IV (15:59)
[2020-11-29] MEDS: methylPREDNISolone 125 MG/2 ML VIAL IV (16:00)
--- NOTE | 2020-11-29 16:41 | ED.ALLEREA ---
HPI - Allergic Reaction General Chief complaint: Allergic Reaction Stated complaint: allergic reaction Time Seen by Provider: 11/29/20 15:47 Source: patient Mode of arrival: Ambulatory History of Present Illness HPI narrative: 35-year-old woman who presents with increasing rash and hives immediately following her 1st COVID inoculation. 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 Has not had an anaphylactic reaction to immunizations previously. She is not complaining of dyspnea, throat swelling, lip swelling. Injection was approximately 10 minutes prior to arrival in the emergency department Related Data Home Medications Medication Instructions Recorded Confirmed cholecalciferol (vitamin D3) 50 2,000 unit PO DAILY 11/06/18 01/07/20 mcg (2,000 unit) capsule multivitamin 1 tab PO DAILY 11/27/19 01/07/20 etonogestrel 68 mg subdermal SUBDERMAL 01/07/20 01/07/20 implant Previous Rx's Medication Instructions Recorded ibuprofen 600 mg tablet 600 mg PO Q8H PRN #90 tab NS 09/02/19 Allergies Allergy/AdvReac Type Severity Reaction Status Date / Time venom-honey bee Allergy Unknown Anaphylaxis Verified 01/07/20 15:07 [BEE VENOM (HONEY BEE)] meperidine [MEPERIDINE] AdvReac Severe HOT RED Verified 01/07/20 15:07 RASH Review of Systems Review of Systems Narrative: Remainder of review of systems including constitutional, ENT, cardiovascular, respiratory, GI, , musculoskeletal, skin, neurologic and psychiatric systems reviewed and are unremarkable except as noted in HPI. Patient History Medical History Conjunctivitis Surgical History Status post delivery (06/16/12) Status post delivery (10/21/16) Status post laparoscopic cholecystectomy (04/14/07) Family History Father Age: 46 Hypertension High cholesterol Mother Age: 50 MS (multiple sclerosis) Social History marital status: household members: spouse and children (2) Smoking Status: Never smoker alcohol intake: current (ON OCCASION ) substance use type: does not use Smoking Status: Never smoker alcohol intake frequency: holidays/special occasions only Substance Use Type: does not use Exam Narrative Exam Narrative: General: Healthy appearing, flushed with hives developing over her upper chest but Able to give a complete and coherent history. Well-nourished well-developed HEENT: Moist mucous membranes, normal sclera with reactive pupils, no pharyngeal or tongue swelling. Some minor edema to the left lateral lip Respiratory: Lungs are clear to auscultation, no wheezing no rales no rhonchi. Full and symmetrical air movement Cardiac: Regular rate and rhythm no murmurs no bruits Abdomen: Soft nontender good bowel tones, no flank pain Skin: Warm and dry, no rashes Neurologic: Grossly neurologically intact with no obvious asymmetries or abnormalities Extremities: No trauma, well perfused Psych: Cooperative, appropriate insight and affect Initial Vital Signs Initial Vital Signs: Vital Signs Temperature 98.4 F 11/29/20 16:12 Pulse Rate 111 H 11/29/20 16:12 Respiratory Rate 22 11/29/20 16:12 Blood Pressure 144/97 H 11/29/20 16:12 Pulse Oximetry 100 11/29/20 16:12 Course Orders Ordered: Discontinued Medications Diphenhydramine HCl (Diphenhydramine 50 Mg/Ml Vial) 25 mg IV NOW ONE Stop: 11/29/20 15:49 Last Admin: 11/29/20 15:59 Dose: 25 mg Documented by: JESSIE Famotidine (Pepcid) 20 mg in 50 mls @ 200 mls/hr IV NOW ONE Stop: 11/29/20 16:02 Last Infusion: 11/29/20 16:08 Dose: 0 mls/hr Documented by: Admin: 11/29/20 15:59 Dose: 200 mls/hr Documented by: JESSIE Methylprednisolone (Methylprednisolone 125 Mg/2 Ml Vial) 125 mg IV NOW ONE Stop: 11/29/20 15:49 Last Admin: 11/29/20 16:00 Dose: 125 mg Documented by: JESSIE Vital Signs Vital signs: Vital Signs - 8 hr 11/29/20 16:12 11/29/20 16:15 11/29/20 16:30 Temperature 98.4 F Pulse Rate 96 H 97 H 108 H Respiratory Rate 14 Blood Pressure 144/97 H 142/72 H 132/63 Pulse Oximetry 100 100 100 11/29/20 17:00 11/29/20 17:30 11/29/20 17:39 Temperature Pulse Rate 96 H 104 H 98 H Respiratory Rate 16 Blood Pressure 136/65 Pulse Oximetry 99 97 98 11/29/20 17:45 Temperature Pulse Rate 90 Respiratory Rate 16 Blood Pressure 136/65 Pulse Oximetry 99 MDM - Allergic Reaction Medical Records Attestation: I reviewed the patient's medical records. [facility] Narrative Medical decision making narrative: 35-year-old woman with acute allergic reaction to COVID inoculation. She is given IV Solu-Medrol, Benadryl and Pepcid and has responded nicely. There does not appear to be any acute pulmonary or respiratory tract involvement this time. She is safe for home discharge. CDC recommendations would be to not repeat her 2nd immunization. Discharge Plan Departure Patient Disposition: Home Clinical Impression: Allergic reaction Qualifiers: Encounter type: initial encounter Qualified Code(s): T78.40XA - Allergy, unspecified, initial encounter Instructions: DI for Anaphylaxis Activity Restrictions/Additional Instructions: Thank you for coming in today I am sorry you had such an impressive reaction to your COVID shot. Your given IV Solu-Medrol, Benadryl and Pepcid in the emergency department in your symptoms have resolved nicely. If you have recurrent symptoms please return to the emergency department. CDC recommendation is that anybody with the significant of a reaction to the initial injection should not have a follow-up COVID immunization injection Prescriptions: No Action cholecalciferol (vitamin D3) 2,000 unit capsule 2,000 unit PO DAILY RF: 0 ibuprofen 600 mg tablet 600 mg PO Q8H PRN (Reason: pain) Qty: 90 RF: 0 multivitamin Tablet 1 tab PO DAILY RF: 0 Nexplanon 68 mg implant subdermal RF: 0 Referrals: Denton Nazario MD [Primary Care Provider] -
== END 2020-11-29 17:45 | disposition home or self-care (01) ==
PROVIDERS: Emergency Provider Emergency Medicine; PCP Family Medicine
DX: T78.40XA Allergy, unspecified, initial encounter (principal); T50.Z95A Adverse effect of other vaccines and biological substances, initial encounter; Z23 Encounter for immunization; L50.0 Allergic urticaria
CPT/HCPCS: 0011A; 36415; 91301; 96374; 96375; 99281; 99284; J1200; J2930

== ENCOUNTER 2021-07-04 22:57 | Emergency (ER) | payer OTHER, SELFPAY ==
--- NOTE | 2021-07-04 23:10 | DI.RAD.S_ITS ---
PROCEDURE: XR KNEE LT 3V INDICATIONS: twisted knee at work TECHNIQUE: 3 views of the knee were acquired. COMPARISON: None. FINDINGS: Bones: No fractures or dislocations. No suspicious bony lesions. Soft tissues: No joint effusion. No suspicious soft tissue calcifications. IMPRESSION: 1. No acute bony abnormality. Dictated by: Teo Mendoza M.D. on 07/05/2021 at 8:43 Approved by: Teo Mendoza M.D. on 07/05/2021 at 8:46
[2021-07-04 23:13] VITALS: BP 141/83; PULSE 81; RESP 17; TEMP 36.6; O2SAT 98; BMI 31.3
--- NOTE | 2021-07-04 23:35 | ED_ITS ---
HPI - Extremity Injury (Lower) General Chief Complaint: Extremity Injury, Lower Stated Complaint: lt knee injury Time Seen by Provider: 07/04/21 23:00 Source: patient Mode of arrival: Ambulatory Limitations: no limitations History of Present Illness HPI Narrative: 36-year-old female nonsmoker with noncontributory medical history presents with a work related injury just prior to arrival. She was sitting in a chair with her knee bent and stood up and while rotating her body to left felt immediate pain in her left knee at the medial joint line. She did not have any clicking or popping. Her knee does not feel unstable but hurts with ambulation. She denies any numbness, tingling or weakness. She denies prior injury. She denies any traumatic impact with the ground or other firm object. Related Data Home Medications Medication Instructions Recorded Confirmed cholecalciferol (vitamin D3) 50 2,000 unit PO DAILY 11/06/18 01/07/20 mcg (2,000 unit) capsule multivitamin 1 tab PO DAILY 11/27/19 01/07/20 etonogestrel 68 mg subdermal SUBDERMAL 01/07/20 01/07/20 implant (Nexplanon) Previous Rx's Medication Instructions Recorded ibuprofen 600 mg tablet 600 mg PO Q8H PRN #90 tab NS 09/02/19 Allergies Allergy/AdvReac Type Severity Reaction Status Date / Time venom-honey bee Allergy Unknown Anaphylaxis Verified 01/07/20 15:07 [BEE VENOM (HONEY BEE)] meperidine [MEPERIDINE] AdvReac Severe HOT RED Verified 01/07/20 15:07 RASH Review of Systems Review of Systems Narrative: GENERAL: Denies chills, fatigue, malaise, fever, sweats. HEENT: Denies sinus pain, ear pain, sore throat, difficulty swallowing, dizziness. RESPIRATORY: Denies dyspnea, cough, wheezing, hemoptysis, sputum. CARDIOVASCULAR: Denies chest pain, palpitations, orthopnea, edema, GASTROINTESTINAL: Denies nausea, vomiting, abdominal pain, diarrhea, constipation, melena. : Denies dysuria, frequency, incontinence, hematuria, urinary retention. MUSCULOSKELETAL: See HPI SKIN: Denies rash, skin lesions, or other NEUROLOGIC: Denies weakness, headache, numbness, change in speech, confusion, seizures, incoordination. PSYCHIATRIC: No concerning psychosocial issues. 12 point review of systems is negative except for those stated above Patient History Medical History Conjunctivitis Surgical History Status post delivery (06/16/12) Status post delivery (10/21/16) Status post laparoscopic cholecystectomy (04/14/07) Family History Father Age: 46 Hypertension High cholesterol Mother Age: 50 MS (multiple sclerosis) Social History marital status: household members: spouse and children (2) Smoking Status: Never smoker alcohol intake: current (ON OCCASION ) substance use type: does not use Smoking Status: Never smoker alcohol intake frequency: holidays/special occasions only Substance Use Type: does not use Exam Narrative Exam Narrative: GEN: AOx3 and in mild distress EYES: Pupils are equal, round, and reactive to light and accommodation. Extraoccular muscles are intact bilaterally. There is no subconjunctival hemorrhage or exudate. CHEST: Lungs are clear to auscultation bilaterally and free of wheezes, rales, or rhonchi. Heart rate is regular rhythm, there are no murmurs, clicks, rubs, or gallops. There is no chest wall tenderness. ABD: Abdomen is soft and nontender. There is no guarding or rebound. Bowel sounds are normal in all 4 quadrants. There is no mass or organomegaly. EXT: Full but painful range of motion of left knee. Tender to palpate along medial joint line without any evidence of effusion, erythema or warmth. No ligamentous instability noted. Minimal pain with varus and valgus testing. No pain with Junie's test. Negative Marichuy's SKIN: Warm, pink, and dry. No erythema or rash Initial Vital Signs Initial Vital Signs: Vital Signs Temperature 98 F 07/04/21 23:13 Pulse Rate 81 07/04/21 23:13 Respiratory Rate 17 07/04/21 23:13 Blood Pressure 141/83 H 07/04/21 23:13 Pulse Oximetry 98 07/04/21 23:13 Course Orders Ordered: ED Orders 07/04/21 23:10 XR knee LT 3V Stat Vital Signs Vital signs: Vital Signs - 8 hr 07/04/21 23:13 07/05/21 00:16 Temperature 98 F Pulse Rate 81 65 Respiratory Rate 17 18 Blood Pressure 141/83 H 118/71 Pulse Oximetry 98 100 MDM - Extremity Injury (Lower) Imaging Data Extremity x-ray #1: Radiologist's Impression: No fracture MDM Narrative Medical decision making narrative: Patient with very reassuring history and physical exam. No evidence of fracture. No effusion or erythema to suggest septic arthritis. No physical exam or x-ray findings to suggest dislocation. No ligamentous instability to suggest patient with the knee immobilizer. Return precautions given and questions answered to her apparent satisfaction Discharge Plan Departure Patient Disposition: Home Clinical Impression: MCL sprain of left knee Qualifiers: Encounter type: initial encounter Qualified Code(s): S83.412A - Sprain of medial collateral ligament of left knee, initial encounter Instructions: DI for Knee Sprain Activity Restrictions/Additional Instructions: *You have been diagnosed with [left knee injury. Your physical exam and x-rays are very reassuring and there is no evidence of fracture] *What to do: *Please continue to take your regular medications as directed. [ ] New medication prescriptions sent to your pharmacy: [ ] [ ] New medication written as a paper prescription [ x] No new medications given *Please follow up with your primary care provider in 2-3 days, call for an appointment. Let them know you were seen in the Emergency Department and that we ask that you be seen in follow up. We will electronically transmit a record of today's note if your PCP is in our system *If you do not have a primary care provider please contact the [facility] Resource line at [phone]. They will ask some questions about your medical history and help get you set up with a doctor in the community. *Return to Emergency Department if you should have any new, worsening or concerning symptoms, such as [fever greater than 101 F, shaking chills, worsening pain, persistent vomiting or other bothersome symptoms] Prescriptions: No Action cholecalciferol (vitamin D3) 2,000 unit capsule 2,000 unit PO DAILY RF: 0 ibuprofen 600 mg tablet 600 mg PO Q8H PRN (Reason: pain) Qty: 90 RF: 0 multivitamin Tablet 1 tab PO DAILY RF: 0 Nexplanon 68 mg implant subdermal RF: 0 Referrals: Denton Nazario MD [Primary Care Provider] -
[2021-07-05 00:16] VITALS: BP 118/71; PULSE 65; RESP 18; O2SAT 100
== END 2021-07-05 00:17 | disposition home or self-care (01) ==
PROVIDERS: Emergency Provider Emergency Medicine; PCP Family Medicine
DX: S83.412A Sprain of medial collateral ligament of left knee, initial encounter (principal); X50.1XXA Overexertion from prolonged static or awkward postures, initial encounter; Y99.0 Civilian activity done for income or pay
CPT/HCPCS: 73562; 99281; 99283

== ENCOUNTER → 2021-09-14 12:27 | Outpatient (CLI) | payer OTHER, SELFPAY ==
[2021-09-16 11:31] LABS: COVID19 Sendout Not Detected (Not Detect)
== END ==
PROVIDERS: PCP Family Medicine; Visit Provider Nurse Practitioner
DX: Z20.822 Contact with and (suspected) exposure to COVID-19 (principal)
CPT/HCPCS: 87635; C9803

== ENCOUNTER → 2021-09-19 13:23 | Outpatient (CLI) | payer OTHER, MEDICAID, SELFPAY | PROVIDERS: PCP Family Medicine; Referring Provider Internal Medicine; Visit Provider Internal Medicine | DX: Z23 Encounter for immunization (principal) | CPT/HCPCS: 90471; 90686 ==

== ENCOUNTER → 2021-10-08 13:48 | Outpatient (CLI) | payer OTHER, MEDICAID, SELFPAY ==
--- NOTE | 2021-10-08 13:50 | DI.MRI.S_ITS ---
PROCEDURE: MR KNEE LT WO CON INDICATIONS: Pain in left knee TECHNIQUE: Noncontrast sagittal PD fast spin echo and T2 fast spin echo with fat saturation, sagittal 3-D FLASH with fat saturation; coronal T1 spin echo and PD fast spin echo with fat saturation, and axial PD fast spin echo with fat saturation through the knee. COMPARISON: None. FINDINGS: Image quality: Excellent. Menisci: The medial and lateral menisci demonstrate normal morphology and internal signal. The meniscal root ligaments appear intact. Cruciate ligaments: The anterior and posterior cruciate ligaments appear intact. Medial structures: The medial collateral ligament appears intact. The visualized portions of the pes anserinus tendons appear normal. Small amount of bursal fluid. Lateral structures: The lateral collateral ligament complex appears intact. The popliteus tendon appears normal; the popliteofibular ligament appears intact. The iliotibial band appears normal. Anterior structures: The quadriceps and patellar tendons appear intact. Patellar alignment is normal. No femoral trochlear dysplasia or ventral trochlear prominence. No edema in the infrapatellar fat pad. Bones and cartilage: No bone marrow contusions or fractures. 5.1 mm defect along the lateral aspect of the patella apex, compatible with chondromalacia. Signal heterogeneity of the lateral patellar facet hyaline cartilage. The cartilage of the medial and lateral femorotibial compartments is maintained. Joint space: There is physiologic knee joint fluid. A T2 hyperintense lesion is seen in the popliteal fossa, measuring 2.2 x 0.5 x 4.2 cm. IMPRESSION: 1. No evidence of internal derangement. 2. Small amount of pes anserinus bursal fluid. 3. Chondromalacia of the patellar apex. 4. Cystic-appearing lesion in the popliteal fossa, most consistent with a Mars's cyst as detailed above. Dictated by: Austin Pierson M.D. on 10/08/2021 at 17:33 Approved by: Austin Pierson M.D. on 10/08/2021 at 17:39
== END ==
PROVIDERS: PCP Family Medicine; Referring Provider Orthopaedic Surgery Foot and Ankle Surgery; Visit Provider Orthopaedic Surgery Foot and Ankle Surgery
DX: M25.562 Pain in left knee (principal); M22.42 Chondromalacia patellae, left knee
CPT/HCPCS: 73721

== ENCOUNTER → 2022-10-19 11:04 | Outpatient (CLI) | payer OTHER, MEDICAID, SELFPAY ==
[2022-10-19 13:00] LABS: Influenza A - CEPHEID Flu A NEGATIVE (NEGATIVE); Influenza B - CEPHEID Flu B NEGATIVE (NEGATIVE); Respiratory Syncytial Virus Negative (Negative)
[2022-10-19 13:01] LABS: COVID-19 CEPHEID 4-PLEX PCR Negative (Negative)
== END ==
PROVIDERS: PCP Family Medicine; Visit Provider Physician Assistant
DX: R05.9 Cough, unspecified (principal)
CPT/HCPCS: 0241U

== ENCOUNTER → 2023-02-04 12:08 | Outpatient (CLI) | payer OTHER, MEDICAID, SELFPAY ==
[2023-02-06 03:44] LABS: Hepatitis B Surf Ab Qualitativ Reactive (.)
== END ==
PROVIDERS: PCP Family Medicine; Referring Provider Family Medicine; Visit Provider Family Medicine
DX: Z01.84 Encounter for antibody response examination (principal)
CPT/HCPCS: 36415; 86706